=== PATIENT | female | born 1955 | race Caucasian/White ===

== ENCOUNTER 2018-09-29 18:59 | Emergency (ER) | payer OTHER ==
[2018-09-29 19:10] VITALS: BP 144/87; PULSE 94; RESP 18; TEMP 98.2
[2018-09-29] MEDS ORDERED: FAMOTIDINE 20 MG TAB PO STA (19:26)
[2018-09-29] MEDS ORDERED: LIDOCAINE 5% PATCH TOPICAL STA (19:26)
[2018-09-29] MEDS ORDERED: NAPROXEN 250 MG TAB PO STA (19:26)
--- NOTE | 2018-09-29 19:28 | ED ---
Skin/Abscess/FB HPI - General Chief complaint: Skin/Abscess/Foreign Body Stated complaint: Hx Shingles, Abd Pain Time Seen by Provider: 09/29/18 19:13 Source: patient Mode of arrival: ambulatory Limitations: no limitations - History of Present Illness Initial comments: 63-year-old female patient presents to the emergency department today for evaluation of pain, itching, and tenderness over the left lower abdomen. Patient was diagnosed with shingles 2 weeks ago. Patient states that her symptoms aren't improving is making it difficult for her to sleep. Patient states she can feel sharp pain to the area which causes her to wake up. Patient denies any fever or chills. States that she was given valacyclovir but no pain medications. Patient denies any current drainage from the area. Patient denies any recent rash, shortness breath, chest pain, abdominal pain, nausea, vomiting, diarrhea, constipation, back pain, numbness, tingling, dizziness, weakness, hematuria, dysuria, urinary urgency, urinary frequency, headache, visual changes, or any other complaints. - Related Data Home Medications Medication Instructions Recorded Confirmed Levothyroxine Sodium [Synthroid] 88 mcg PO DAILY 04/10/14 04/10/14 Methocarbamol [Robaxin] 1,000 mg PO QID 04/10/14 04/10/14 Venlafaxine HCl [Effexor] 75 mg PO BID 04/10/14 04/10/14 lamoTRIgine [LaMICtal] 100 mg PO DAILY 04/10/14 04/10/14 Previous Rx's Medication Instructions Recorded Famotidine [Pepcid] 20 mg PO DAILY #30 tablet 09/29/18 Lidocaine 5% Patch [Lidoderm] 1 patch TOPICAL DAILY #5 patch 09/29/18 Naproxen 500 mg PO BID #30 tablet 09/29/18 Allergies Allergy/AdvReac Type Severity Reaction Status Date / Time No Known Allergies Allergy Verified 09/29/18 19:09 Review of Systems ROS Statement: Those systems with pertinent positive or pertinent negative responses have been documented in the HPI. ROS Other: All systems not noted in ROS Statement are negative. Past Medical History Past Medical History: Thyroid Disorder History of Any Multi-Drug Resistant Organisms: None Reported Past Surgical History: Hysterectomy, Joint Replacement Additional Past Surgical History / Comment(s): left knee Past Psychological History: Depression Smoking Status: Current every day smoker Past Alcohol Use History: None Reported Past Drug Use History: None Reported General Exam Limitations: no limitations General appearance: alert, in no apparent distress, other (Physical well- developed, well-nourished adult female patient in no acute distress. Vital signs upon presentation are temperature 98.2F, pulse 94, respirations 18, blood pressure 144/87, pulse ox 100% on room air.) Respiratory exam: Present: normal lung sounds bilaterally. Absent: respiratory distress, wheezes, rales, rhonchi, stridor Cardiovascular Exam: Present: regular rate, normal rhythm, normal heart sounds. Absent: systolic murmur, diastolic murmur, rubs, gallop, clicks GI/Abdominal exam: Present: soft, normal bowel sounds, other (There are crusting scabbed lesions noted over the left lower quadrant abdomen radiating around to the left low back. No surrounding erythema or evidence of cellulitis. No drainage.). Absent: distended, tenderness, guarding, rebound, rigid Neurological exam: Present: alert, oriented X3, CN II-XII intact Psychiatric exam: Present: normal affect, normal mood Skin exam: Present: warm, dry, intact, normal color. Absent: rash Course Vital Signs 09/29/18 19:06 Temperature 98.2 F Pulse Rate 94 Respiratory 18 Rate Blood Pressure 144/87 O2 Sat by Pulse 100 Oximetry Medical Decision Making - Medical Decision Making 63-year-old female patient presented to the emergency department today for evaluation of itching, pain, and tenderness over the left lower abdomen and low back. Patient was diagnosed with shingles 2 weeks ago. She was given valacyclovir but no pain medications. Physical examination did reveal a crusting scabbed lesions to the left lower abdomen and the left low back. There is no surrounding erythema. No concerned for cellulitis or infection. Patient will be discharged with Pepcid for itching, Lidoderm patch for pain relief as well as naproxen for pain relief. She is instructed to follow-up with her primary care physician for recheck in 1-2 days. Return parameters discussed in detail. She verbalizes understanding and agrees with this plan. Disposition Clinical Impression: Shingles Disposition: HOME SELF-CARE Condition: Good Instructions (If sedation given, give patient instructions): Shingles (ED) Additional Instructions: Take medications as directed. Complete prescriptions given to by previous physician. Follow-up with your primary care physician for recheck, one has been recommended 2. Return to the emergency department immediately for any new, worsening, or concerning symptoms. Prescriptions: Lidocaine 5% Patch [Lidoderm] 1 patch TOPICAL DAILY #5 patch Naproxen 500 mg PO BID #30 tablet Famotidine [Pepcid] 20 mg PO DAILY #30 tablet Is patient prescribed a controlled substance at d/c from ED?: No Referrals: None,Stated [Primary Care Provider] - 1-2 days Time of Disposition: 19:28
[2018-09-29] MEDS ORDERED: ACET/COD 300 MG/30 MG STARTER PACK 6 TAB BTL PO STA (19:31)
== END 2018-09-29 19:43 | disposition home or self-care (01) ==
LOC: EC 18:59
DX: B02.9 Zoster without complications (principal); E07.9 Disorder of thyroid, unspecified; F32.9 Major depressive disorder, single episode, unspecified; F17.200 Nicotine dependence, unspecified, uncomplicated; Z90.710 Acquired absence of both cervix and uterus; Z96.652 Presence of left artificial knee joint; Z79.890 Hormone replacement therapy; Z79.899 Other long term (current) drug therapy
CPT/HCPCS: 99283

== ENCOUNTER → 2019-04-29 | Outpatient (CLI) | payer OTHER ==
[2019-04-29 12:06] VITALS: BP 129/86; PULSE 82; RESP 16
--- NOTE | 2019-04-29 12:57 | P.CONS ---
History of Present Illness - Reason for Consult Consult date: 04/29/19 - Chief Complaint Widespread body pain - History of Present Illness This is a 64-year-old female who was referred to us for lower back and right leg pain however the patient complains of pain all over her body. The patient had a brain tumor removal 2 years ago. She also complains of abdominal wall hernia. She feels pain in her lower back with radiation to the right lower extremity to the mid calf area with numbness and tingling in the feet only. She denies any bowel or bladder dysfunction or any weight loss recently. The pain occasionally wakes her up at night. Activity increases her pain level and lying down in bed helps her with the pain. The patient was switched from Neurontin to Lyrica and she will start Lyrica To See If This Would Help Her Pain. She Had an MRI on the Lumbar Spine Which Showed Mild Disc Space Narrowing at the L3-L4 Level and Moderate Broad Disc Bulging at the L5 3 4 Was Facet Degenerative Changes and Bilateral Neural Foraminal Stenosis It Also Showed Similar Changes at the L4 5 Level. This MRI Was Done in 2017. Past Medical History Past Medical History: Hyperlipidemia, Osteoarthritis (OA), Thyroid Disorder Additional Past Medical History / Comment(s): Allergies. Hx brain tumor, has migraines. Hx benign tumors in ab. Back, Rt hip, knee pain. History of Any Multi-Drug Resistant Organisms: None Reported Past Surgical History: Hysterectomy, Joint Replacement Additional Past Surgical History / Comment(s): Total Left knee. Exc brain tumor 2018. Exc 2 abd tumors Past Anesthesia/Blood Transfusion Reactions: No Reported Reaction Smoking Status: Current every day smoker - Past Family History Mother Family Medical History: Cancer Medications and Allergies Home Medications Medication Instructions Recorded Confirmed Type Levothyroxine Sodium [Synthroid] 125 mcg PO DAILY 04/10/14 04/24/19 History Methocarbamol [Robaxin] 750 mg PO TID PRN 04/10/14 04/24/19 History lamoTRIgine [LaMICtal] 25 mg PO DAILY 04/10/14 04/24/19 History Aspirin 325 mg PO TID PRN 04/24/19 04/24/19 History diphenhydrAMINE [Benadryl] 50 mg PO BID PRN 04/24/19 04/24/19 History Allergies Allergy/AdvReac Type Severity Reaction Status Date / Time No Known Allergies Allergy Verified 04/24/19 11:06 Physical Exam Vitals: Vital Signs Pulse Resp BP 04/29/19 12:03 82 16 129/86 - Constitutional General appearance: average body habitus - EENT Eyes: PERRLA - Respiratory Respiratory: bilateral: CTA - Cardiovascular Rhythm: regular - Neurologic Neuro exam of the lower extremities showed normal ankle flexion and extension strength, decreased knee flexion to 4 out of 5 bilaterally and normal knee extension to 4 out of 5 bilaterally. Normal knee reflex bilaterally and decreased but symmetrical ankle reflexes bilaterally. Straight leg raising test negative bilaterally. Positive tenderness in the lumbar paravertebral musculature and around the sacroiliac joint on the right side. Dexter's test negative on the right side. Internal and external rotation of the hip joint did not elicit any pain on the right side. Neurologic: CNII-XII intact - Psychiatric Psychiatric: A&O x's 3, appropriate affect, intact judgment & insight Assessment and Plan Plan: This is a 62-year-old female with lumbar spondylosis without myelopathy and lumbar neuroforaminal stenosis. The patient may benefit from interventional pain procedures however she would like to try conservative management first. She will try physical therapy and Lyrica. She also wanted to take care of her abdominal hernia by consulting a general surgeon and also to follow-up with her neurosurgeon about the brain tumor. The patient will give our clinic a call if her pain continues to be a problem in the lower back and right leg area and then we will schedule her to have lumbar epidural steroid injection under fluoroscopic guidance at the L4 5 level in the right paramedian approach. The patient denies any history of diabetes and she also denies taking any anticoagulants. I thank you for the referral
== END | disposition home or self-care (01) ==
LOC: PNWHC3 11:32
PROVIDERS: ATTEND Anesthesiology
DX: M48.061 Spinal stenosis, lumbar region without neurogenic claudication (principal); M99.73 Connective tissue and disc stenosis of intervertebral foramina of lumbar region; M51.26 Other intervertebral disc displacement, lumbar region; M47.816 Spondylosis without myelopathy or radiculopathy, lumbar region; F17.200 Nicotine dependence, unspecified, uncomplicated; K43.9 Ventral hernia without obstruction or gangrene; Z79.899 Other long term (current) drug therapy
CPT/HCPCS: 99211

== ENCOUNTER 2020-06-17 04:48 | Observation (INO) | payer OTHER ==
[2020-06-17] MEDS ORDERED: MORPHINE SULFATE 4 MG/ML SYRINGE IVP STA (06:25)
[2020-06-17] MEDS ORDERED: ONDANSETRON 4 MG/2 ML VIAL IVP STA (06:25)
[2020-06-17 06:37] LABS: Basophils % (A) 0 %; Eosinophils # (A) 0.1 k/uL (0-0.7); Eosinophils % (A) 1 %; HCT 35.5 % (34.0-46.0); Lymphocytes # (A) 0.6 k/uL (1.0-4.8); Lymphocytes % (A) 7 %; MCHC 33.7 g/dL (31.0-37.0); MCV 91.9 fL (80.0-100.0); Mean Platelet Volume 6.6; Monocytes # (A) 0.4 k/uL (0-1.0); Monocytes % (A) 5 %; Neutrophils # (A) 6.6 k/uL (1.3-7.7); Neutrophils % (A) 86 %; Platelet Count 366 k/uL (150-450); RBC 3.86 m/uL (3.80-5.40); RDW 13.5 % (11.5-15.5); WBC 7.7 k/uL (3.8-10.6)
--- NOTE | 2020-06-17 06:42 | ED ---
General Adult HPI - General Source: patient, EMS, RN notes reviewed Mode of arrival: EMS Limitations: no limitations <Marko Carrizales - Last Filed: 06/17/20 08:10> <Evon Mayfield - Last Filed: 06/21/20 16:34> - General Chief complaint: Skin/Abscess/Foreign Body Stated complaint: Chin Infection Time Seen by Provider: 06/17/20 06:15 - History of Present Illness Initial comments: This a 65-year-old female presents emergency Department chief complaint of chin mass, infection. Patient states started a few months ago. She loses started from dental infection after she had old. Patient states that she is seeing pe ople in the past but is unsure what is going on. States that she's had increasing pain, swelling, redness. No definite fever. Patient states is a large hole in the center. Patient states it's very painful hurts to move her jaw. Patient has no dentition. (Marko Carrizales) - Related Data Home Medications Medication Instructions Recorded Confirmed Albuterol Nebulized [Ventolin 2.5 mg INHALATION RT-Q4H PRN 06/17/20 06/17/20 Nebulized] Albuterol Sulfate [Proventil Hfa] 1 puff INHALATION RT-Q6H PRN 06/17/20 06/17/20 DULoxetine HCL [Cymbalta] 30 mg PO DAILY 06/17/20 06/17/20 Ibuprofen [Motrin] 400 mg PO Q8H PRN 06/17/20 06/17/20 Levothyroxine Sodium [Synthroid] 125 mcg PO DAILY 06/17/20 06/17/20 Nicotine 14Mg/24Hr Patch [Habitrol] 1 patch TRANSDERM DAILY 06/17/20 06/17/20 busPIRone HCl [Buspar] 20 mg PO BID 06/17/20 06/17/20 lamoTRIgine [LaMICtal] 25 mg PO BID 06/17/20 06/17/20 Previous Rx's Medication Instructions Recorded Amoxic-Pot Clav 875-125Mg 1 each PO Q12HR #4 tab 06/21/20 [Augmentin 875-125] Docusate [Colace] 100 mg PO BID cap 06/21/20 Famotidine [Pepcid] 20 mg PO BID #60 tablet 06/21/20 Allergies Allergy/AdvReac Type Severity Reaction Status Date / Time No Known Allergies Allergy Verified 06/17/20 07:38 Review of Systems ROS Other: All systems not noted in ROS Statement are negative. <Marko Carrizales - Last Filed: 06/17/20 08:10> ROS Other: All systems not noted in ROS Statement are negative. <Evon Mayfield Cara - Last Filed: 06/21/20 16:34> ROS Statement: Those systems with pertinent positive or pertinent negative responses have been documented in the HPI. Past Medical History Past Medical History: Hyperlipidemia, Osteoarthritis (OA), Thyroid Disorder Additional Past Medical History / Comment(s): Allergies. Hx brain tumor, has migraines. Hx benign tumors in ab. Back, Rt hip, knee pain. History of Any Multi-Drug Resistant Organisms: None Reported Past Surgical History: Hysterectomy, Joint Replacement Additional Past Surgical History / Comment(s): Total Left knee. Exc brain tumor 2018. Exc 2 abd tumors Past Anesthesia/Blood Transfusion Reactions: No Reported Reaction Past Psychological History: Anxiety, Depression Smoking Status: Former smoker Past Alcohol Use History: None Reported Past Drug Use History: None Reported - Past Family History Mother Family Medical History: Cancer <Marko Carrizales - Last Filed: 06/17/20 08:10> General Exam Limitations: no limitations General appearance: alert, in no apparent distress Head exam: Present: atraumatic, normocephalic, normal inspection Eye exam: Present: normal appearance, PERRL, EOMI. Absent: scleral icterus, conjunctival injection, periorbital swelling ENT exam: Present: mucous membranes moist, TM's normal bilaterally, other (Very large chin mass with central eschar, erythema and tenderness with palpation). Absent: normal exam, normal oropharynx (No dentition) Neck exam: Present: normal inspection, full ROM. Absent: tenderness, meningismus, lymphadenopathy Respiratory exam: Present: normal lung sounds bilaterally. Absent: respiratory distress, wheezes, rales, rhonchi, stridor Cardiovascular Exam: Present: regular rate, normal rhythm, normal heart sounds. Absent: systolic murmur, diastolic murmur, rubs, gallop, clicks GI/Abdominal exam: Present: soft, normal bowel sounds. Absent: distended, tenderness, guarding, rebound, rigid Neurological exam: Present: alert, oriented X3, CN II-XII intact Skin exam: Present: warm, dry, intact, normal color. Absent: rash <Marko Carrizales - Last Filed: 06/17/20 08:10> Course Vital Signs 06/17/20 06/17/20 06/17/20 04:50 06:25 07:11 Temperature 97.8 F Pulse Rate 103 H 96 Respiratory 18 18 Rate Blood Pressure 134/96 130/76 O2 Sat by Pulse 96 96 Oximetry 06/17/20 09:05 Temperature Pulse Rate 101 H Respiratory 18 Rate Blood Pressure 123/72 O2 Sat by Pulse 94 L Oximetry Medical Decision Making - Lab Data Result diagrams: 06/17/20 05:59 06/17/20 05:59 <Marko Carrizales - Last Filed: 06/17/20 08:10> - Lab Data Result diagrams: 06/21/20 07:25 06/21/20 07:25 <Evon Mayfield - Last Filed: 06/21/20 16:34> - Medical Decision Making Patient will be admitted for facial mass possible abscess. Case discussed with Dr. Chong. Patient will have consultation to oncology and ENT. (Marko Carrizales) I was available for consultation in the emergency department. The history and physical exam were done by the midlevel provider. I was consulted for this patients care. I reviewed the case with the midlevel provider and based on their presentation of the patient, I agree with the assessment, medical decision making and plan of care as documented. Chart was dictated using [employer] dictation software. Attempts were made to correct any dictation errors however some typographical errors may persist. Patient was seen during a national state of emergency due to the Covid-19 pandemic. (Evon Mayfield) - Lab Data Lab Results 06/17/20 06/17/20 06/17/20 Range/Units 05:59 05:59 05:59 WBC 7.7 (3.8-10.6) k/uL RBC 3.86 (3.80-5.40) m/uL Hgb 12.0 (11.4-16.0) gm/dL Hct 35.5 (34.0-46.0) % MCV 91.9 (80.0-100.0) fL MCH 31.0 (25.0-35.0) pg MCHC 33.7 (31.0-37.0) g/dL RDW 13.5 (11.5-15.5) % Plt Count 366 (150-450) k/uL MPV 6.6 Neutrophils % 86 % Lymphocytes % 7 % Monocytes % 5 % Eosinophils % 1 % Basophils % 0 % Neutrophils # 6.6 (1.3-7.7) k/uL Lymphocytes # 0.6 L (1.0-4.8) k/uL Monocytes # 0.4 (0-1.0) k/uL Eosinophils # 0.1 (0-0.7) k/uL Basophils # 0.0 (0-0.2) k/uL Sodium 138 (137-145) mmol/L Potassium 3.4 L (3.5-5.1) mmol/L Chloride 104 (98-107) mmol/L Carbon Dioxide 21 L (22-30) mmol/L Anion Gap 13 mmol/L BUN 13 (7-17) mg/dL Creatinine 0.89 (0.52-1.04) mg/dL Est GFR (CKD-EPI)AfAm 80 (>60 ml/min/1.73 sqM) Est GFR (CKD-EPI)NonAf 69 (>60 ml/min/1.73 sqM) Glucose 133 H (74-99) mg/dL Plasma Lactic Acid Nick 0.9 (0.7-2.0) mmol/L Calcium 8.8 (8.4-10.2) mg/dL Total Bilirubin 0.3 (0.2-1.3) mg/dL AST 31 (14-36) U/L ALT 18 (4-34) U/L Alkaline Phosphatase 82 (38-126) U/L Total Protein 7.3 (6.3-8.2) g/dL Albumin 4.2 (3.5-5.0) g/dL Disposition <Marko Carrizales - Last Filed: 06/17/20 08:10> <Evon Mayfield - Last Filed: 06/21/20 16:34> Clinical Impression: Facial mass, Abscess of chin Disposition: ADMITTED IP TO THIS [facility] Condition: Serious
[2020-06-17 06:49] LABS: Albumin 4.2 g/dL (3.5-5.0); Calcium 8.8 mg/dL (8.4-10.2); Potassium 3.4 mmol/L (3.5-5.1); Total Bilirubin 0.3 mg/dL (0.2-1.3); Total Protein 7.3 g/dL (6.3-8.2)
--- NOTE | 2020-06-17 07:36 | CT ---
EXAMINATION TYPE: CT soft tissue neck w con DATE OF EXAM: 06/17/2020 COMPARISON: None HISTORY: chin abscess CT DLP: 223.9 mGycm CONTRAST: CT scan of the neck is performed with IV Contrast, patient injected with 100 mL of Isovue 300. Contrast enhanced CT of the neck was performed from the skull base through the lung apices. AIRWAY: The supraglottic, glottic, and subglottic portions of the airway appear patent and free of mass. SALIVARY GLANDS: The submandibular and parotid glands are free of mass or inflammatory process. THYROID GLAND: No nodules or masses seen. LYMPH NODES: No adenopathy seen greater than 1cm. LUNG APICES: No nodule or mass is seen. OTHER: There is mental/submental soft tissue mass noted which measures 5.8 x 3.7 x 6.3 cm submental c omponent and mentalis component measuring 5.3 x 2.0 x 2.3 cm.. Hounsfield unit measurement is approxi mately 55. Within the mentalis component there is a small focus of decreased attenuation to the right of midline seen on image 43 of 84 measuring 11 mm. No no additional areas of decreased attenuation s een. No additional masses appreciated at this time. Vascular structures are patent. No significant d egenerative change of the cervical spine. IMPRESSION: Nonspecific soft tissue mass within the mental/submental region. Malignancy is not excluded. Small fo werner abscess within the mentalis component is difficult to exclude. Clinical correlation advised.
[2020-06-17] MEDS ORDERED: NALOXONE 0.4 MG/ML 1 ML VIAL IV PRN (08:12)
[2020-06-17] MEDS ORDERED: MORPHINE SULFATE 4 MG/ML SYRINGE IV PRN (08:12)
[2020-06-17] MEDS ORDERED: ONDANSETRON 4 MG/2 ML VIAL IVP PRN (08:12)
[2020-06-17] MEDS ORDERED: AMPICILLIN-SULBACTAM 3 GM in SODIUM CHLORIDE 0.9% 100 ML IVPB STA (08:14)
[2020-06-17] MEDS ORDERED: IOPAMIDOL CONTRAST (ORAL USE) VIAL PO PRN (13:46)
[2020-06-17] MEDS ORDERED: busPIRone HCl 10 MG TAB PO SCH (15:28)
[2020-06-17] MEDS: ALBUTEROL HFA INHALER INHALATION PRN (15:48)
[2020-06-17] MEDS: NICOTINE 14MG/24HR PATCH TRANSDERM SCH (15:53)
[2020-06-17] MEDS: AMPICILLIN-SULBACTAM 3 GM in SODIUM CHLORIDE 0.9% 100 ML IVPB SCH (15:54)
--- NOTE | 2020-06-17 17:41 | P.CONS ---
History of Present Illness - Reason for Consult Consult date: 06/17/20 Submandibular Mass Requesting physician: Marko Carrizales - Chief Complaint Mass and discomfort - History of Present Illness Rony is a 65 year old female who noticed a mass on her chin approximately 3 months ago and this has continued to grow since. She also recently struggled with shingles too and has some post herpetic neuralgia. Rash is scabbed over. She is very hard of hearing. Review of Systems All systems: negative Constitutional: Reports as per HPI Past Medical History Past Medical History: Hyperlipidemia, Osteoarthritis (OA), Thyroid Disorder Additional Past Medical History / Comment(s): Allergies. Hx brain tumor, has migraines. Hx benign tumors in ab. Back, Rt hip, knee pain. History of Any Multi-Drug Resistant Organisms: None Reported Past Surgical History: Hysterectomy, Joint Replacement Additional Past Surgical History / Comment(s): Total Left knee. Exc brain tumor 2018. Exc 2 abd tumors Past Anesthesia/Blood Transfusion Reactions: No Reported Reaction Past Psychological History: Anxiety, Depression Smoking Status: Former smoker Past Alcohol Use History: None Reported Additional Past Alcohol Use History / Comment(s): Smoking on/off since 1989, down to 5 cigarettes daily now Past Drug Use History: None Reported - Past Family History Mother Family Medical History: Cancer Medications and Allergies Home Medications Medication Instructions Recorded Confirmed Type diphenhydrAMINE [Benadryl] 50 mg PO BID PRN 04/24/19 06/17/20 History Albuterol Nebulized [Ventolin 2.5 mg INHALATION RT-Q4H PRN 06/17/20 06/17/20 History Nebulized] Albuterol Sulfate [Proventil Hfa] 1 puff INHALATION RT-Q6H PRN 06/17/20 06/17/20 History DULoxetine HCL [Cymbalta] 30 mg PO DAILY 06/17/20 06/17/20 History Ibuprofen [Motrin] 400 mg PO Q8H PRN 06/17/20 06/17/20 History Levothyroxine Sodium [Synthroid] 125 mcg PO DAILY 06/17/20 06/17/20 History Nicotine 14Mg/24Hr Patch [Habitrol 1 patch TRANSDERM DAILY 06/17/20 06/17/20 History 14Mg/24Hr Patch] busPIRone HCl [Buspar] 20 mg PO BID 06/17/20 06/17/20 History lamoTRIgine [LaMICtal] 25 mg PO BID 06/17/20 06/17/20 History Allergies Allergy/AdvReac Type Severity Reaction Status Date / Time No Known Allergies Allergy Verified 06/17/20 07:38 Physical Exam Vitals: Vital Signs Temp Pulse Pulse Resp BP BP Pulse Ox 06/17/20 13:55 98.2 F 108 H 20 93/61 95 06/17/20 12:15 98.3 F 103 H 16 106/63 95 06/17/20 12:00 98.4 F 96 18 110/65 96 06/17/20 09:05 101 H 18 123/72 94 L 06/17/20 07:11 96 18 130/76 96 06/17/20 06:25 97.8 F 06/17/20 04:50 103 H 18 134/96 96 Intake and Output 06/17/20 06/17/20 06/17/20 06:59 14:59 22:59 Other: Weight 58.967 kg 58.967 kg Large dimpled, orange de peau appearing mass overtaking entire chin and submandigular region, with large necrotic area within middle. - Constitutional General appearance: cooperative - EENT ENT: hard of hearing - Neck Neck: normal ROM - Cardiovascular Rhythm: regular - Gastrointestinal General gastrointestinal: soft - Integumentary Scabbed area of recent shingles - Neurologic Neurologic: CNII-XII intact - Musculoskeletal Musculoskeletal: generalized weakness - Psychiatric Psychiatric: A&O x's 3, appropriate affect, intact judgment & insight Results CBC & Chem 7: 06/17/20 05:59 06/17/20 05:59 Labs: Abnormal Lab Results - Last 24 Hours (Table) 06/17/20 06/17/20 Range/Units 05:59 05:59 Lymphocytes # 0.6 L (1.0-4.8) k/uL Potassium 3.4 L (3.5-5.1) mmol/L Carbon Dioxide 21 L (22-30) mmol/L Glucose 133 H (74-99) mg/dL Comments: CT neck Assessment and Plan Plan: Assessment and Recommenations: Large Submandibular mass: - ENT and Surgery have evaluated - IR to biopsy - COncerning for underlying malignancy necrosis centralzed - CT Chest/Abdomen and Pelvis for initial staging Await results of pathology
[2020-06-17] MEDS: lamoTRIgine 25 MG TAB PO SCH (20:16)
--- NOTE | 2020-06-17 22:30 | P.HPIM ---
History of Present Illness H&P Date: 06/17/20 Chief Complaint: chin mass Rony Nicole is a 65 yo F with PMH of COPD who presented to the ED with an enlarging mass under her chin. She states that over the past 3 months it has worsened, she has had multiple teeth pulled in the past and was previously told by a dentist there was a retained fragment in her jaw. She had been treated with antibiotics initially as well as had a CT scan which was unremarkable. Despite this her mass has continued to grow. On presentation vitals stable, CT with nonspecific soft mass, WBC 7k. Review of Systems All systems: negative Constitutional: Denies chills, Denies fever Eyes: denies blurred vision, denies pain Ears, nose, mouth and throat: Reports ant. neck pain, Reports dental pain, Denies headache, Denies sore throat Cardiovascular: Denies chest pain, Denies shortness of breath Respiratory: Denies cough Gastrointestinal: Denies abdominal pain, Denies diarrhea, Denies nausea, Denies vomiting Genitourinary: Denies dysuria, Denies hematuria Musculoskeletal: Denies myalgias Integumentary: Denies pruritus, Denies rash Neurological: Denies numbness, Denies weakness Psychiatric: Denies anxiety, Denies depression Endocrine: Denies fatigue, Denies weight change Past Medical History Past Medical History: Hyperlipidemia, Osteoarthritis (OA), Thyroid Disorder Additional Past Medical History / Comment(s): Allergies. Hx brain tumor, has migraines. Hx benign tumors in ab. Back, Rt hip, knee pain. History of Any Multi-Drug Resistant Organisms: None Reported Past Surgical History: Hysterectomy, Joint Replacement Additional Past Surgical History / Comment(s): Total Left knee. Exc brain tumor 2018. Exc 2 abd tumors Past Anesthesia/Blood Transfusion Reactions: No Reported Reaction Past Psychological History: Anxiety, Depression Smoking Status: Former smoker Past Alcohol Use History: None Reported Additional Past Alcohol Use History / Comment(s): Smoking on/off since 1989, down to 5 cigarettes daily now Past Drug Use History: None Reported - Past Family History Mother Family Medical History: Cancer Medications and Allergies Home Medications Medication Instructions Recorded Confirmed Type diphenhydrAMINE [Benadryl] 50 mg PO BID PRN 04/24/19 06/17/20 History Albuterol Nebulized [Ventolin 2.5 mg INHALATION RT-Q4H PRN 06/17/20 06/17/20 History Nebulized] Albuterol Sulfate [Proventil Hfa] 1 puff INHALATION RT-Q6H PRN 06/17/20 06/17/20 History DULoxetine HCL [Cymbalta] 30 mg PO DAILY 06/17/20 06/17/20 History Ibuprofen [Motrin] 400 mg PO Q8H PRN 06/17/20 06/17/20 History Levothyroxine Sodium [Synthroid] 125 mcg PO DAILY 06/17/20 06/17/20 History Nicotine 14Mg/24Hr Patch [Habitrol 1 patch TRANSDERM DAILY 06/17/20 06/17/20 History 14Mg/24Hr Patch] busPIRone HCl [Buspar] 20 mg PO BID 06/17/20 06/17/20 History lamoTRIgine [LaMICtal] 25 mg PO BID 06/17/20 06/17/20 History Allergies Allergy/AdvReac Type Severity Reaction Status Date / Time No Known Allergies Allergy Verified 06/17/20 07:38 Physical Exam Vitals: Vital Signs Temp Pulse Pulse Resp BP BP Pulse Ox 06/17/20 20:31 18 06/17/20 19:35 98.8 F 98 18 105/68 94 L 06/17/20 13:55 98.2 F 108 H 20 93/61 95 06/17/20 12:15 98.3 F 103 H 16 106/63 95 06/17/20 12:00 98.4 F 96 18 110/65 96 06/17/20 09:05 101 H 18 123/72 94 L 06/17/20 07:11 96 18 130/76 96 06/17/20 06:25 97.8 F 06/17/20 04:50 103 H 18 134/96 96 Intake and Output 06/17/20 06/17/20 06/17/20 06:59 14:59 22:59 Other: # Voids 1 Weight 58.967 kg 58.967 kg General: well nourished, well developed, NAD. Vitals reviewed Eyes: PERRL, EOMI, conjunctiva normal HENT: normocephalic, mucus membranes moist Neck: anterior submandibular fullness, erythema and tenderness. central black eschar Lungs: normal respiratory effort, no wheezes or rales CV: Regular rate and rhythm, no murmur. Peripheral pulses 2+ Abdomen: soft, nondistended, no organomegaly Lymph: no cervical or axillary LAD Skin: warm and dry. Neuro: A&Ox3, normal mood and affect Results CBC & Chem 7: 06/17/20 05:59 06/17/20 19:26 Labs: Abnormal Lab Results - Last 24 Hours (Table) 06/17/20 06/17/20 06/17/20 Range/Units 05:59 05:59 19:26 Lymphocytes # 0.6 L (1.0-4.8) k/uL Potassium 3.4 L (3.5-5.1) mmol/L Carbon Dioxide 21 L (22-30) mmol/L BUN 19 H (7-17) mg/dL Glucose 133 H (74-99) mg/dL Thrombosis Risk Factor Assmnt - Choose All That Apply Any of the Below Risk Factors Present?: Yes Each Factor Represents 1 point: Age 41-60 years, Obesity (BMI >25) Other Risk Factors: Yes Each Risk Factor Represents 2 Points: Age 61-74 years, Malignancy Thrombosis Risk Factor Assessment Total Risk Factor Score: 6 Thrombosis Risk Factor Assessment Level: High Risk Assessment and Plan (1) COPD (chronic obstructive pulmonary disease) Current Visit: Yes Status: Acute Code(s): J44.9 - CHRONIC OBSTRUCTIVE PULMONARY DISEASE, UNSPECIFIED SNOMED Code(s): 32976884 (2) Abscess of chin Current Visit: Yes Status: Acute Code(s): L02.01 - CUTANEOUS ABSCESS OF FACE SNOMED Code(s): 39303252 (3) Facial mass Current Visit: Yes Status: Acute Code(s): R22.0 - LOCALIZED SWELLING, MASS AND LUMP, HEAD SNOMED Code(s): 416480774 Plan: 1. Submandibular mass. Start empiric antiboitics. Consult to Oncology. IR to biopsy mass 2. COPD. Continue albuterol and NRT 3. Hypothyroidism. Continue synthroid
[2020-06-18] MEDS ORDERED: SODIUM CHLORIDE 0.9% 100 ML BAG ONE
[2020-06-18] MEDS ORDERED: busPIRone HCl 10 MG TAB ONE
[2020-06-18] MEDS ORDERED: AMPICILLIN-SULBACTAM 3 GM VIAL ONE
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
[2020-06-18] MEDS: LEVOTHYROXINE 125 MCG TAB PO SCH (06:20)
[2020-06-18] MEDS: ALBUTEROL HFA INHALER INHALATION PRN ×2 (07:14→11:20)
[2020-06-18] MEDS: AMPICILLIN-SULBACTAM 3 GM in SODIUM CHLORIDE 0.9% 100 ML IVPB SCH ×3 (07:47→16:05)
[2020-06-18] MEDS: busPIRone HCl 10 MG TAB PO SCH ×3 (07:48→20:33)
[2020-06-18] MEDS: lamoTRIgine 25 MG TAB PO SCH ×2 (08:58→20:33)
[2020-06-18] MEDS: DULoxetine HCL 30 MG CAPSULE.DR PO SCH (08:59)
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
[2020-06-18] MEDS: HYDROcodone/APAP 5-325MG 1 EACH TAB PO PRN ×2 (12:00→19:58)
--- NOTE | 2020-06-18 12:54 | US ---
EXAMINATION TYPE: US biopsy soft tissue/muscle, US FNA first lesion DATE OF EXAM: 06/18/2020 HISTORY: Submental mass. FINDINGS: Maximal barrier technique was utilized. Hand hygiene achieved with soap and water and alco hol-based hand rub. The skin overlying a suitable path to the patient's mass in the submental locatio n was localized with ultrasound and the overlying skin prepped and draped. Ultrasound was utilized w ith sterile technique. Lidocaine was used for local anesthesia. A skin shasha was made with a scalpel . An 18-gauge needle was advanced under direct ultrasound guidance and core specimen obtained of the mass following aspiration with a 23-gauge needle which was deposited in culture media. 2 passes were made. Specimen submitted in formalin to Pathology. Following the procedure, hemostasis achieved an d the patient is discharged in stable condition without complication. IMPRESSION:STATUS POST ULTRASOUND GUIDED CORE AND FINE-NEEDLE ASPIRATION BIOPSY OF submental MASS, PA THOLOGY and microbiology IS PENDING. THIS PROCEDURE IS PERFORMED BY THE UNDERSIGNED.
[2020-06-18 13:43] LABS: ALT 15 U/L (4-34); AST 25 U/L (14-36); African American GFR (CKD) >90 (>60 ml/min/1.73 sqM); Albumin 3.7 g/dL (3.5-5.0); Alkaline Phosphatase 69 U/L (38-126); Anion Gap 6 mmol/L; Basophils % (A) 1 %; Blood Urea Nitrogen 17 mg/dL (7-17); Calcium 8.4 mg/dL (8.4-10.2); Carbon Dioxide 30 mmol/L (22-30); Chloride 104 mmol/L (98-107); Eosinophils # (A) 0.2 k/uL (0-0.7); Eosinophils % (A) 3 %; Glucose 104 mg/dL (74-99); HCT 32.3 % (34.0-46.0); HGB 10.5 gm/dL (11.4-16.0); Lymphocytes # (A) 0.5 k/uL (1.0-4.8); Lymphocytes % (A) 9 %; MCH 30.6 pg (25.0-35.0); MCHC 32.5 g/dL (31.0-37.0); Magnesium 2.1 mg/dL (1.6-2.3); Mean Platelet Volume 6.4; Monocytes # (A) 0.3 k/uL (0-1.0); Monocytes % (A) 5 %; Neutrophils # (A) 4.3 k/uL (1.3-7.7); Neutrophils % (A) 82 %; Non-African American GFR(CKD) >90 (>60 ml/min/1.73 sqM); Platelet Count 273 k/uL (150-450); Potassium 3.4 mmol/L (3.5-5.1); RBC 3.44 m/uL (3.80-5.40); RDW 13.9 % (11.5-15.5); Sodium 140 mmol/L (137-145); Total Bilirubin 0.3 mg/dL (0.2-1.3); Total Protein 6.4 g/dL (6.3-8.2); WBC 5.2 k/uL (3.8-10.6)
[2020-06-18] MEDS ORDERED: Potassium Replacement Protocol 1 EACH MISC MISCELLANE PRN (14:46)
--- NOTE | 2020-06-18 14:52 | P.PN ---
Subjective Progress Note Date: 06/18/20 Rony Nicole is a 65 yo F with PMH of COPD who presented to the ED with an enlarging mass under her chin. She states that over the past 3 months it has worsened, she has had multiple teeth pulled in the past and was previously told by a dentist there was a retained fragment in her jaw. She had been treated with antibiotics initially as well as had a CT scan which was unremarkable. Despite this her mass has continued to grow. On presentation vitals stable, CT with nonspecific soft mass, WBC 7k. 06/18/2020 maintained on IV antibiotics, consenting only to biopsy of chin. Declining further workup with CTs. Denies chin pain. Denies chest pain, palpitations or increasing shortness of breath. Afebrile, normal WBC. Hemoglobin 10.5, platelets 273. Potassium 3.4. Objective - Vital Signs Vital signs: Vital Signs Temp 98.4 F 06/18/20 08:36 Pulse 95 06/18/20 11:15 Resp 16 06/18/20 11:15 BP 103/65 06/18/20 11:15 Pulse Ox 95 06/18/20 11:15 Intake & Output 06/17/20 06/18/20 06/18/20 18:59 06:59 18:59 Weight 58.967 kg Other: # Voids 1 2 - Exam General: well nourished, well developed, NAD. Vitals reviewed Eyes: PERRL, EOMI, conjunctiva normal HENT: normocephalic, mucus membranes moist Neck: anterior submandibular fullness, erythema and tenderness. central black eschar Lungs: normal respiratory effort, no wheezes or rales CV: Regular rate and rhythm, no murmur. Peripheral pulses 2+ Abdomen: soft, nondistended, no organomegaly Lymph: no cervical or axillary LAD Skin: warm and dry. Neuro: A&Ox3, normal mood and affect Microbiology 06/17/20 06:25 Blood Blood Culture - Preliminary No Growth after 24 hours 06/17/20 06:23 Blood Blood Culture - Preliminary No Growth after 24 hours - Labs CBC & Chem 7: 06/18/20 13:17 06/18/20 13:17 Labs: Abnormal Lab Results - Last 24 Hours (Table) 06/17/20 Range/Units 19:26 BUN 19 H (7-17) mg/dL Microbiology - Last 24 Hours (Table) 06/17/20 06:25 Blood Culture - Preliminary Blood No Growth after 24 hours 06/17/20 06:23 Blood Culture - Preliminary Blood No Growth after 24 hours Assessment and Plan Assessment: 1. Submandibular mass 2. COPD 3. Hypothyroidism. Plan: Continue on current medication regime ,monitoring and symptomatic treatment. IV fluid hydration. Continue empiric Unasyn. Refusing CTs, only consenting to biopsy of chin with IR. Maintain nebulized bronchodilators. Potassium replacement ordered .smoking cessation reinforced .Follow closely with multiple consults. Pain management. The impression and plan of care has been dictated as directed. : I performed a history and examination of this patient, discussed the same with the dictator. I agree with the dictator's note ,documented as a scribe. Any additional findings or plans will be noted.
[2020-06-18] MEDS: NICOTINE 14MG/24HR PATCH TRANSDERM SCH (16:05)
[2020-06-18] MEDS: POTASSIUM CHLORIDE ER 20 MEQ TAB.ER PO SCH ×2 (16:05→17:00)
[2020-06-18] MEDS ORDERED: POTASSIUM CHLORIDE ER 20 MEQ TAB.ER PO SCH (20:00)
--- NOTE | 2020-06-18 22:19 | P.PN ---
Subjective Progress Note Date: 06/18/20 Principal diagnosis: large submental mass Patient has refused imaging today per nursing, however Biopsy is scheduled for today appears to be planned. Objective - Vital Signs Vital signs: Vital Signs Temp 98.4 F 06/18/20 08:36 Pulse 95 06/18/20 11:15 Resp 16 06/18/20 11:15 BP 103/65 06/18/20 11:15 Pulse Ox 95 06/18/20 11:15 Intake & Output 06/17/20 06/18/20 06/18/20 18:59 06:59 18:59 Weight 58.967 kg Other: # Voids 1 2 - Exam Large dimpled, orange de peau appearing mass overtaking entire chin and submandigular region, with large necrotic area within middle. - Constitutional General appearance: cooperative - EENT ENT: hard of hearing - Neck Neck: normal ROM - Cardiovascular Rhythm: regular - Gastrointestinal General gastrointestinal: soft - Integumentary Scabbed area of recent shingles - Neurologic Neurologic: CNII-XII intact - Musculoskeletal Musculoskeletal: generalized weakness - Psychiatric Psychiatric: A&O x's 3, appropriate affect, intact judgment & insight - Labs CBC & Chem 7: 06/17/20 05:59 06/17/20 19:26 Labs: Abnormal Lab Results - Last 24 Hours (Table) 06/17/20 Range/Units 19:26 BUN 19 H (7-17) mg/dL Microbiology - Last 24 Hours (Table) 06/17/20 06:25 Blood Culture - Preliminary Blood No Growth after 24 hours 06/17/20 06:23 Blood Culture - Preliminary Blood No Growth after 24 hours Assessment and Plan Plan: Assessment and Recommenations: Large Submandibular mass: - ENT and Surgery have evaluated - IR to biopsy - Concerning for underlying malignancy necrosis centralzed versus large abscess versus acinomycosis - CT Chest/Abdomen and Pelvis for initial staging Await results of pathology
[2020-06-18] MEDS: oxyCODONE-APAP 7.5-325MG 1 EACH TAB PO PRN (22:37)
[2020-06-19] MEDS: AMPICILLIN-SULBACTAM 3 GM in SODIUM CHLORIDE 0.9% 100 ML IVPB SCH ×4 (00:02→23:53)
[2020-06-19] MEDS: LEVOTHYROXINE 125 MCG TAB PO SCH (06:34)
[2020-06-19] MEDS: ALBUTEROL HFA INHALER INHALATION PRN (08:10)
[2020-06-19] MEDS: NICOTINE 14MG/24HR PATCH TRANSDERM SCH (09:14)
[2020-06-19] MEDS: busPIRone HCl 10 MG TAB PO SCH ×2 (09:15→21:09)
[2020-06-19] MEDS: DULoxetine HCL 30 MG CAPSULE.DR PO SCH (09:16)
[2020-06-19] MEDS: lamoTRIgine 25 MG TAB PO SCH ×2 (09:16→21:08)
[2020-06-19 09:56] LABS: Basophils % (A) 0 %; Eosinophils # (A) 0.1 k/uL (0-0.7); Eosinophils % (A) 3 %; HCT 28.6 % (34.0-46.0); HGB 9.8 gm/dL (11.4-16.0); Lymphocytes # (A) 0.6 k/uL (1.0-4.8); Lymphocytes % (A) 17 %; MCH 32.3 pg (25.0-35.0); MCHC 34.4 g/dL (31.0-37.0); MCV 93.8 fL (80.0-100.0); Mean Platelet Volume 6.4; Monocytes # (A) 0.3 k/uL (0-1.0); Monocytes % (A) 7 %; Neutrophils # (A) 2.5 k/uL (1.3-7.7); Neutrophils % (A) 70 %; Platelet Count 223 k/uL (150-450); RBC 3.04 m/uL (3.80-5.40); RDW 13.7 % (11.5-15.5); WBC 3.5 k/uL (3.8-10.6)
[2020-06-19 10:03] LABS: African American GFR (CKD) >90 (>60 ml/min/1.73 sqM); Anion Gap 4 mmol/L; Blood Urea Nitrogen 17 mg/dL (7-17); Calcium 8.2 mg/dL (8.4-10.2); Carbon Dioxide 28 mmol/L (22-30); Chloride 107 mmol/L (98-107); Glucose 110 mg/dL (74-99); Non-African American GFR(CKD) >90 (>60 ml/min/1.73 sqM); Potassium 4.2 mmol/L (3.5-5.1); Sodium 139 mmol/L (137-145)
[2020-06-19] MEDS: oxyCODONE-APAP 7.5-325MG 1 EACH TAB PO PRN ×3 (10:29→22:08)
[2020-06-19] MEDS: IBUPROFEN 600 MG TAB PO PRN (15:08)
[2020-06-19] MEDS: ALBUTEROL NEBULIZED 2.5 MG/3 ML INHALATION SCH ×2 (15:30→20:00)
[2020-06-19] MEDS: SYMBICORT 80-4.5 MCG INHALER INHALATION SCH (19:59)
--- NOTE | 2020-06-19 22:35 | P.PN ---
Subjective Progress Note Date: 06/19/20 Principal diagnosis: Submandibular mass Covering for Dr. Chong over the weekend Ms. Nicole is a 65-year-old female with a past medical history of COPD, hyperlipidemia, thyroid disorder coming in to the ED with a chief complaint of enlarging mass under her chin. This has been going on for 3 months and worsen, patient was treated with antibiotics but the mass continued to grow. She had a CT of the neck done showing nonspecific soft tissue mass in the submental region so the patient eventually had soft tissue biopsy done yesterday. And she is currently on antibiotics in the form of Unasyn. She is comfortably sitting up in the bed appears to be no acute distress. Patient denies having any chest pain or palpitations. No cough or difficulty breathing. No abdominal pain nausea vomiting or diarrhea. No dysuria or hematuria. On reviewing the vitals temperature of 97.4, heart rate 83, respiratory rate 18, blood pressure 130 x 77 saturating at 94% on room air. Labs from this morning white count of 3.5, hemoglobin 9.8, platelets 223. Sodium 139, potassium 4.2, chloride 107, bicarb 28, BUN 17, creatinine 0.55. Active Medications Albuterol Sulfate (Albuterol Nebulized 2.5 Mg/3 Ml) 2.5 mg INHALATION RT-TID S Last Admin: 06/19/20 20:00 Dose: 2.5 mg Documented by: Budesonide/Formoterol Fumarate (Symbicort 80-4.5 Mcg Inhaler) 2 puff INHALATION RT-BID [facility] Last Admin: 06/19/20 19:59 Dose: 2 puff Documented by: Buspirone HCl (Buspirone Hcl 10 Mg Tab) 20 mg PO BID [facility] Last Admin: 06/19/20 21:09 Dose: 20 mg Documented by: Duloxetine HCl (Duloxetine Hcl 30 Mg Capsule.Dr) 30 mg PO DAILY [facility] Last Admin: 06/19/20 09:16 Dose: 30 mg Documented by: Ampicillin Sodium/Sulbactam (Sodium 3 gm/ Sodium Chloride) 100 mls @ 200 mls/hr IVPB Q8HR [facility] Last Admin: 06/19/20 16:18 Dose: 200 mls/hr Documented by: Ibuprofen (Ibuprofen 600 Mg Tab) 600 mg PO Q6HR PRN PRN Reason: Pain Last Admin: 06/19/20 15:08 Dose: 600 mg Documented by: Lamotrigine (Lamotrigine 25 Mg Tab) 25 mg PO BID [facility] Last Admin: 06/19/20 21:08 Dose: 25 mg Documented by: Levothyroxine Sodium (Levothyroxine 125 Mcg Tab) 125 mcg PO DAILY@0630 [facility] Last Admin: 06/19/20 06:34 Dose: 125 mcg Documented by: Miscellaneous Information (Potassium Replacement Protocol 1 Each Misc) 1 each MISCELLANE DAILY PRN; Protocol PRN Reason: Per Protocol Naloxone HCl (Naloxone 0.4 Mg/Ml 1 Ml Vial) 0.2 mg IV Q2M PRN PRN Reason: Opioid Reversal Nicotine (Nicotine 14mg/24hr Patch) 1 patch TRANSDERM DAILY [facility] Last Admin: 06/19/20 09:14 Dose: 1 patch Documented by: Ondansetron HCl (Ondansetron 4 Mg/2 Ml Vial) 4 mg IVP Q8HR PRN PRN Reason: Nausea And Vomiting Oxycodone/Acetaminophen (Oxycodone-Apap 7.5-325mg 1 Each Tab) 1 each PO Q6HR PRN PRN Reason: Pain Last Admin: 06/19/20 22:08 Dose: 1 each Documented by: Objective - Vital Signs Vital signs: Vital Signs Temp 98.2 F 06/19/20 08:00 Pulse 88 06/19/20 08:00 Resp 16 06/19/20 08:00 BP 104/69 06/19/20 08:00 Pulse Ox 93 L 06/19/20 08:00 Intake & Output 06/18/20 06/19/20 06/19/20 18:59 06:59 18:59 Intake Total 0 240 Balance 0 240 Intake: Oral 240 Tube Feeding 0 Other: Voiding Method Toilet # Voids 4 # Bowel Movements 0 - Exam General: well nourished, well developed, NAD. Vitals reviewed Eyes: PERRL, EOMI, conjunctiva normal HENT: normocephalic, mucus membranes moist Neck: anterior submandibular fullness, erythema and tenderness. central black eschar Lungs: normal respiratory effort, Bilateral wheezing CV: Regular rate and rhythm, no murmur. Peripheral pulses 2+ Abdomen: soft, nondistended, no organomegaly Lymph: no cervical or axillary LAD Skin: warm and dry. Neuro: A&Ox3, normal mood and affect - Labs CBC & Chem 7: 06/19/20 09:27 06/19/20 09:27 Labs: Abnormal Lab Results - Last 24 Hours (Table) 06/18/20 06/18/20 06/19/20 Range/Units 13:17 13:17 09:27 WBC 3.5 L (3.8-10.6) k/uL RBC 3.44 L 3.04 L (3.80-5.40) m/uL Hgb 10.5 L 9.8 L (11.4-16.0) gm/dL Hct 32.3 L 28.6 L (34.0-46.0) % Lymphocytes # 0.5 L 0.6 L (1.0-4.8) k/uL Potassium 3.4 L (3.5-5.1) mmol/L Glucose 104 H (74-99) mg/dL Calcium (8.4-10.2) mg/dL 06/19/20 Range/Units 09:27 WBC (3.8-10.6) k/uL RBC (3.80-5.40) m/uL Hgb (11.4-16.0) gm/dL Hct (34.0-46.0) % Lymphocytes # (1.0-4.8) k/uL Potassium (3.5-5.1) mmol/L Glucose 110 H (74-99) mg/dL Calcium 8.2 L (8.4-10.2) mg/dL Microbiology - Last 24 Hours (Table) 06/17/20 06:25 Blood Culture - Preliminary Blood No Growth after 48 hours 06/17/20 06:23 Blood Culture - Preliminary Blood No Growth after 48 hours 06/18/20 11:05 Gram Stain - Preliminary Other - Other Wound Culture - Preliminary 06/18/20 11:05 Anaerobic Culture - Preliminary Other - Other Assessment and Plan Assessment: ASSESSMENT Submandibular mass status post biopsy Hyperlipidemia Hypothyroidism COPD PLAN: Patient is being continued on Unasyn for possible infection of the submandibular mass. She had a biopsy done yesterday and pathology is pending. Patient is wheezing bilaterally on physical exam today so started on Symbicort twice daily and to continue with albuterol breathing treatments as needed. Patient to be continued with the rest of her current medication regimen. Further recommendations to follow depending on the progress of the patient.
[2020-06-20] MEDS: oxyCODONE-APAP 7.5-325MG 1 EACH TAB PO PRN ×2 (04:45→15:14)
[2020-06-20] MEDS: LEVOTHYROXINE 125 MCG TAB PO SCH (06:09)
[2020-06-20] MEDS: ALBUTEROL NEBULIZED 2.5 MG/3 ML INHALATION SCH ×3 (08:21→20:15)
[2020-06-20] MEDS: SYMBICORT 80-4.5 MCG INHALER INHALATION SCH ×2 (08:21→20:14)
[2020-06-20] MEDS: AMPICILLIN-SULBACTAM 3 GM in SODIUM CHLORIDE 0.9% 100 ML IVPB SCH ×2 (09:02→15:17)
[2020-06-20] MEDS: DULoxetine HCL 30 MG CAPSULE.DR PO SCH (09:06)
[2020-06-20] MEDS: lamoTRIgine 25 MG TAB PO SCH ×2 (09:06→21:00)
[2020-06-20] MEDS: IBUPROFEN 600 MG TAB PO PRN (09:06)
[2020-06-20] MEDS: busPIRone HCl 10 MG TAB PO SCH ×2 (09:07→20:59)
[2020-06-20] MEDS: NICOTINE 14MG/24HR PATCH TRANSDERM SCH (09:07)
[2020-06-20] MEDS: predniSONE 20 MG TAB PO SCH (14:10)
--- NOTE | 2020-06-20 15:04 | P.PN ---
Subjective Progress Note Date: 06/20/20 Principal diagnosis: Submandibular mass Covering for Dr. Chong over the weekend Ms. Nicole is a 65-year-old female with a past medical history of COPD, hyperlipidemia, thyroid disorder coming in to the ED with a chief complaint of enlarging mass under her chin. This has been going on for 3 months and worsen, patient was treated with antibiotics but the mass continued to grow. She had a CT of the neck done showing nonspecific soft tissue mass in the submental region so the patient eventually had soft tissue biopsy done yesterday. And she is currently on antibiotics in the form of Unasyn. She is comfortably sitting up in the bed appears to be no acute distress. Patient denies having any chest pain or palpitations. No cough or difficulty breathing. No abdominal pain nausea vomiting or diarrhea. No dysuria or hematuria. On reviewing the vitals temperature of 97.4, heart rate 83, respiratory rate 18, blood pressure 130 x 77 saturating at 94% on room air. Labs from this morning white count of 3.5, hemoglobin 9.8, platelets 223. Sodium 139, potassium 4.2, chloride 107, bicarb 28, BUN 17, creatinine 0.55. On 06/12/2020- patient was seen and examined at the bedside. She states that pain in her submental area is improving. She also thinks that the swelling is improving. Results of the biopsy specimen pending. She denies having any chest pain or palpitations. No cough or difficulty in breathing. No fevers chills or rigors. No abdominal pain nausea vomiting or diarrhea. No dysuria or hematuria. On reviewing the vitals temperature 98.1, heart rate 70, respiratory rate 16, blood pressure 138.5, saturating at 94% on room air. On reviewing the labs white count of 3.5, hemoglobin 9.8, platelets 223. Sodium 139, potassium 4.2, chloride 107, bicarbonate 28, BUN 17, creatinine 0.55. Active Medications Albuterol Sulfate (Albuterol Nebulized 2.5 Mg/3 Ml) 2.5 mg INHALATION RT-TID [facility] Last Admin: 06/20/20 08:21 Dose: 2.5 mg Documented by: Budesonide/Formoterol Fumarate (Symbicort 80-4.5 Mcg Inhaler) 2 puff INHALATION RT-BID [facility] Last Admin: 06/20/20 08:21 Dose: 2 puff Documented by: Buspirone HCl (Buspirone Hcl 10 Mg Tab) 20 mg PO BID [facility] Last Admin: 06/20/20 09:07 Dose: 20 mg Documented by: Duloxetine HCl (Duloxetine Hcl 30 Mg Capsule.Dr) 30 mg PO DAILY [facility] Last Admin: 06/20/20 09:06 Dose: 30 mg Documented by: Ampicillin Sodium/Sulbactam (Sodium 3 gm/ Sodium Chloride) 100 mls @ 200 mls/hr IVPB Q8HR [facility] Last Admin: 06/20/20 09:02 Dose: 200 mls/hr Documented by: Ibuprofen (Ibuprofen 600 Mg Tab) 600 mg PO Q6HR PRN PRN Reason: Pain Last Admin: 06/20/20 09:06 Dose: 600 mg Documented by: Lamotrigine (Lamotrigine 25 Mg Tab) 25 mg PO BID [facility] Last Admin: 06/20/20 09:06 Dose: 25 mg Documented by: Levothyroxine Sodium (Levothyroxine 125 Mcg Tab) 125 mcg PO DAILY@0630 [facility] Last Admin: 06/20/20 06:09 Dose: 125 mcg Documented by: Miscellaneous Information (Potassium Replacement Protocol 1 Each Misc) 1 each MISCELLANE DAILY PRN; Protocol PRN Reason: Per Protocol Naloxone HCl (Naloxone 0.4 Mg/Ml 1 Ml Vial) 0.2 mg IV Q2M PRN PRN Reason: Opioid Reversal Nicotine (Nicotine 14mg/24hr Patch) 1 patch TRANSDERM DAILY [facility] Last Admin: 06/20/20 09:07 Dose: 1 patch Documented by: Ondansetron HCl (Ondansetron 4 Mg/2 Ml Vial) 4 mg IVP Q8HR PRN PRN Reason: Nausea And Vomiting Oxycodone/Acetaminophen (Oxycodone-Apap 7.5-325mg 1 Each Tab) 1 each PO Q6HR PRN PRN Reason: Pain Last Admin: 06/20/20 04:45 Dose: 1 each Documented by: Prednisone (Prednisone 20 Mg Tab) 40 mg PO DAILY [facility] Stop: 06/24/20 09:01 Last Admin: 06/20/20 14:10 Dose: 40 mg Documented by: Objective - Vital Signs Vital signs: Vital Signs Temp 98.1 F 06/20/20 08:35 Pulse 78 06/20/20 08:35 Resp 16 06/20/20 08:35 BP 136/85 06/20/20 08:35 Pulse Ox 95 06/20/20 08:35 Intake & Output 06/19/20 06/20/20 06/20/20 18:59 06:59 18:59 Other: # Voids 2 1 - Exam General: well nourished, well developed, NAD. Vitals reviewed Eyes: PERRL, EOMI, conjunctiva normal HENT: normocephalic, mucus membranes moist Neck: anterior submandibular fullness, erythema and tenderness. central black eschar Lungs: normal respiratory effort, Bilateral wheezing worse than yesterday CV: Regular rate and rhythm, no murmur. Peripheral pulses 2+ Abdomen: soft, nondistended, no organomegaly Lymph: no cervical or axillary LAD Skin: warm and dry. Neuro: A&Ox3, normal mood and affect - Labs CBC & Chem 7: 06/19/20 09:27 06/19/20 09:27 Labs: Microbiology - Last 24 Hours (Table) 06/17/20 06:25 Blood Culture - Preliminary Blood No Growth after 72 hours 06/17/20 06:23 Blood Culture - Preliminary Blood No Growth after 72 hours 06/18/20 11:05 Gram Stain - Preliminary Other - Other Wound Culture - Preliminary Assessment and Plan Assessment: ASSESSMENT Submandibular mass status post biopsy Hyperlipidemia Hypothyroidism Mild exacerbation of COPD PLAN: Patient is being continued on Unasyn for possible infection of the submandibular mass. She had a biopsy done and pathology is pending. Patient is wheezing actively bilaterally, will start her on 40 mg of prednisone for 5 days. Continue with Symbicort and albuterol breathing treatments as needed. Patient to be continued with the rest of her current medication regimen. Further recommendations to follow depending on the progress of the patient.
[2020-06-20 20:47] VITALS: RESP 16
[2020-06-20] MEDS: AMOXIC-POT CLAV 875-125MG 1 EACH TAB PO SCH (21:00)
[2020-06-20] MEDS: DOCUSATE 100 MG CAP PO SCH (21:00)
[2020-06-21] MEDS: oxyCODONE-APAP 7.5-325MG 1 EACH TAB PO PRN (04:17)
[2020-06-21] MEDS: LEVOTHYROXINE 125 MCG TAB PO SCH (05:34)
[2020-06-21] MEDS: ALBUTEROL NEBULIZED 2.5 MG/3 ML INHALATION SCH ×2 (07:51→11:54)
[2020-06-21] MEDS: SYMBICORT 80-4.5 MCG INHALER INHALATION SCH (07:51)
[2020-06-21 08:07] LABS: Basophils % (A) 0 %; Eosinophils % (A) 1 %; HCT 27.7 % (34.0-46.0); Lymphocytes # (A) 0.6 k/uL (1.0-4.8); Lymphocytes % (A) 15 %; MCHC 32.6 g/dL (31.0-37.0); Mean Platelet Volume 6.9; Monocytes # (A) 0.3 k/uL (0-1.0); Monocytes % (A) 7 %; Neutrophils % (A) 75 %; Platelet Count 202 k/uL (150-450); RBC 2.92 m/uL (3.80-5.40); RDW 13.4 % (11.5-15.5)
[2020-06-21 08:26] LABS: African American GFR (CKD) >90 (>60 ml/min/1.73 sqM); Anion Gap 2 mmol/L; Blood Urea Nitrogen 13 mg/dL (7-17); Calcium 8.7 mg/dL (8.4-10.2); Carbon Dioxide 30 mmol/L (22-30); Chloride 104 mmol/L (98-107); Glucose 99 mg/dL (74-99); Non-African American GFR(CKD) >90 (>60 ml/min/1.73 sqM); Potassium 4.5 mmol/L (3.5-5.1); Sodium 136 mmol/L (137-145)
[2020-06-21] MEDS: NICOTINE 14MG/24HR PATCH TRANSDERM SCH (09:20)
[2020-06-21] MEDS: DOCUSATE 100 MG CAP PO SCH (09:20)
[2020-06-21] MEDS: busPIRone HCl 10 MG TAB PO SCH (09:20)
[2020-06-21] MEDS: AMOXIC-POT CLAV 875-125MG 1 EACH TAB PO SCH (09:20)
[2020-06-21] MEDS: DULoxetine HCL 30 MG CAPSULE.DR PO SCH (09:21)
[2020-06-21] MEDS: lamoTRIgine 25 MG TAB PO SCH (09:21)
[2020-06-21] MEDS: predniSONE 20 MG TAB PO SCH (09:22)
[2020-06-21 09:35] VITALS: BP 137/80; TEMP 98
[2020-06-21] MEDS: IBUPROFEN 600 MG TAB PO PRN (11:50)
[2020-06-21 11:57] VITALS: PULSE 82
--- NOTE | 2020-06-21 16:49 | P.DS ---
Providers Date of admission: 06/17/20 08:16 Expected date of discharge: 06/21/20 Attending physician: Hollis Chong MD Consults: 06/17/20 08:13 Consult Physician Routine Consulting Provider: Eduardo Thakkar Consult Reason/Comments: Facial mass Do you want consulting provider notified?: Yes Consult Physician Urgent Consulting Provider: Michael Shen Consult Reason/Comments: Facial mass rule out malignancy Do you want consulting provider notified?: Yes 06/17/20 16:04 Consult Physician Routine Consulting Provider: Obed Jorgensen Consult Reason/Comments: r/o chin malignancy biopsy Do you want consulting provider notified?: Already Contacted Primary care physician: Hollis Chong MD Hospital Course: Final Diagnoses: 1. Submandibular mass, status post biopsy, pathology pending 2. COPD 3. Hypothyroidism. 4. History of shingles with lesion 5. Former nicotine dependence Hospital course:Rony Nicole is a 65 yo F with PMH of COPD who presented to the ED with an enlarging mass under her chin. She states that over the past 3 months it has worsened, she has had multiple teeth pulled in the past and was previously told by a dentist there was a retained fragment in her jaw. She had been treated with antibiotics initially as well as had a CT scan which was unremarkable. Despite this her mass has continued to grow. On presentation vitals stable, CT with nonspecific soft mass, WBC 7k. 06/18/2020 maintained on IV antibiotics, consenting only to biopsy of chin. Declining further workup with CTs. Denies chin pain. Denies chest pain, palpitations or increasing shortness of breath. Afebrile, normal WBC. Hemoglobin 10.5, platelets 273. Potassium 3.4. Evaluated by both ENT and oncology. Completed biopsy, tolerated procedure well. Pathology pending. Pain controlled. Less tender. Denies chest pain, palpitations or shortness of breath. Afebrile. Denies fever or chills. Patient will be discharged home today in stable condition with guarded prognosis. Motrin/Tylenol for pain control. Further pain management with Dr. Chong in clinic, as needed. Advised to follow-up with oncology regarding pathology results/recommendations. The impression and plan of care has been dictated as directed. : I performed a history and examination of this patient, discussed the same with the dictator. I agree with the dictator's note ,documented as a scribe. Any additional findings or plans will be noted. Patient Condition at Discharge: Stable Plan - Discharge Summary Discharge Rx Participant: Yes New Discharge Prescriptions: New Amoxic-Pot Clav 875-125Mg [Augmentin 875-125] 1 each PO Q12HR #4 tab Docusate [Colace] 100 mg PO BID cap Famotidine [Pepcid] 20 mg PO BID #60 tablet Continue Albuterol Sulfate [Proventil Hfa] 1 puff INHALATION RT-Q6H PRN PRN Reason: Shortness Of Breath Albuterol Nebulized [Ventolin Nebulized] 2.5 mg INHALATION RT-Q4H PRN PRN Reason: Shortness Of Breath lamoTRIgine [LaMICtal] 25 mg PO BID Levothyroxine Sodium [Synthroid] 125 mcg PO DAILY DULoxetine HCL [Cymbalta] 30 mg PO DAILY Nicotine 14Mg/24Hr Patch [Habitrol] 1 patch TRANSDERM DAILY Ibuprofen [Motrin] 400 mg PO Q8H PRN PRN Reason: Pain busPIRone HCl [Buspar] 20 mg PO BID Discontinued diphenhydrAMINE [Benadryl] 50 mg PO BID PRN PRN Reason: allergies Discharge Medication List Albuterol Nebulized [Ventolin Nebulized] 2.5 mg INHALATION RT-Q4H PRN 06/17/20 [History] Albuterol Sulfate [Proventil Hfa] 1 puff INHALATION RT-Q6H PRN 06/17/20 [History] DULoxetine HCL [Cymbalta] 30 mg PO DAILY 06/17/20 [History] Ibuprofen [Motrin] 400 mg PO Q8H PRN 06/17/20 [History] Levothyroxine Sodium [Synthroid] 125 mcg PO DAILY 06/17/20 [History] Nicotine 14Mg/24Hr Patch [Habitrol] 1 patch TRANSDERM DAILY 06/17/20 [History] busPIRone HCl [Buspar] 20 mg PO BID 06/17/20 [History] lamoTRIgine [LaMICtal] 25 mg PO BID 06/17/20 [History] Amoxic-Pot Clav 875-125Mg [Augmentin 875-125] 1 each PO Q12HR #4 tab 06/21/20 [Rx] Docusate [Colace] 100 mg PO BID cap 06/21/20 [Rx] Famotidine [Pepcid] 20 mg PO BID #60 tablet 06/21/20 [Rx] Follow up Appointment(s)/Referral(s): Michael Shen MD [STAFF PHYSICIAN] - 2 Weeks Aging,[place] [facility] [NON-STAFF] - [facility] [REFERRING] - Hollis Chong MD [Primary Care Provider] - 06/25/20 2:00 pm [facility], [NON-STAFF] - 1 Week Activity/Diet/Wound Care/Special Instructions: any fever, chills, severe pain or concerns, call Dr Chong and notify him. keep the area clean and dry. you may take ibuprofen or acretaminophen as needed for pain. Discharge/Stand Alone Forms: Who Do I Call?, Community Resources
--- NOTE | 2020-06-21 22:21 | P.PN ---
Subjective Progress Note Date: 06/21/20 Principal diagnosis: large submental mass Patient is anxious for discharge, path is still pending. Objective - Vital Signs Vital signs: Vital Signs Temp 98.0 F 06/21/20 08:41 Pulse 82 06/21/20 12:05 Resp 16 06/21/20 08:41 BP 137/80 06/21/20 08:41 Pulse Ox 96 06/21/20 08:41 Intake & Output 06/21/20 06/21/20 06/22/20 06:59 18:59 06:59 Other: # Voids 1 - Exam Large dimpled, orange de peau appearing mass overtaking entire chin and sub mandigular region, with large necrotic area within middle. - Constitutional General appearance: cooperative - EENT ENT: hard of hearing - Neck Neck: normal ROM - Cardiovascular Rhythm: regular - Gastrointestinal General gastrointestinal: soft - Integumentary Scabbed area of recent shingles - Neurologic Neurologic: CNII-XII intact - Musculoskeletal Musculoskeletal: generalized weakness - Psychiatric Psychiatric: A&O x's 3, appropriate affect, intact judgment & insight - Labs CBC & Chem 7: 06/21/20 07:25 06/21/20 07:25 Labs: Abnormal Lab Results - Last 24 Hours (Table) 06/21/20 06/21/20 Range/Units 07:25 07:25 RBC 2.92 L (3.80-5.40) m/uL Hgb 9.0 L (11.4-16.0) gm/dL Hct 27.7 L (34.0-46.0) % Lymphocytes # 0.6 L (1.0-4.8) k/uL Sodium 136 L (137-145) mmol/L Microbiology - Last 24 Hours (Table) 06/17/20 06:25 Blood Culture - Preliminary Blood No Growth after 96 hours 06/17/20 06:23 Blood Culture - Preliminary Blood No Growth after 96 hours 06/18/20 11:05 Gram Stain - Final Other - Other Wound Culture - Final Assessment and Plan Plan: Assessment and Recommenations: Large Submandibular mass: - ENT and Surgery have evaluated - IR to biopsy - Concerning for underlying malignancy necrosis centralzed versus large abscess versus acinomycosis - CT Chest/Abdomen and Pelvis for initial staging Await results of pathology
== END 2020-06-21 14:58 ==
LOC: EC 04:48 → 6PED 08:16
PROVIDERS: ADMIT Family Medicine; ATTEND Family Medicine
DX: C85.11 Unspecified B-cell lymphoma, lymph nodes of head, face, and neck (principal); L02.01 Cutaneous abscess of face; J43.9 Emphysema, unspecified; B02.29 Other postherpetic nervous system involvement; J34.2 Deviated nasal septum; J34.3 Hypertrophy of nasal turbinates; M27.0 Developmental disorders of jaws; E78.5 Hyperlipidemia, unspecified; M19.90 Unspecified osteoarthritis, unspecified site; G43.909 Migraine, unspecified, not intractable, without status migrainosus; E03.9 Hypothyroidism, unspecified; H91.90 Unspecified hearing loss, unspecified ear; F32.9 Major depressive disorder, single episode, unspecified; F41.9 Anxiety disorder, unspecified; F17.210 Nicotine dependence, cigarettes, uncomplicated; E66.9 Obesity, unspecified; Z68.26 Body mass index [BMI] 26.0-26.9, adult; Z86.19 Personal history of other infectious and parasitic diseases; Z86.011 Personal history of benign neoplasm of the brain; Z79.890 Hormone replacement therapy; Z79.1 Long term (current) use of non-steroidal anti-inflammatories (NSAID); Z79.899 Other long term (current) drug therapy; Z86.018 Personal history of other benign neoplasm; Z90.710 Acquired absence of both cervix and uterus; Z96.652 Presence of left artificial knee joint; Z80.9 Family history of malignant neoplasm, unspecified
CPT/HCPCS: 96366 ×3; 96376; 96365; 96375; 99285; 36415; 94640 ×9; 88305; 80053 ×2; 80048 ×2; 82565; 83605; 83735; 84132; 84520; 85025 ×4; 88342; 87040; 88341; 87070; 87205; 87075; 20206; 76942; 10005; 70491; G0378 ×5; S4990 ×5; J2270; J2405; J0295 ×4; J7512 ×2; Q9967

== ENCOUNTER → 2020-07-09 | Outpatient (CLI) | payer OTHER ==
--- NOTE | 2020-07-12 11:43 | PE ---
EXAMINATION TYPE: PET CT fusion skull to thigh DATE OF EXAM: 07/09/2020 COMPARISON: CT neck June 17, 2020. HISTORY: Newly diagnosed lymphoma on biopsy June 18, 2020 of the neck. TECHNIQUE: Following the intravenous administration of 13.15 mCi of F-18 FDG, whole body images are performed from the skull base to the midthigh. Images are reviewed on the computer in the coronal, a xial, and sagittal planes. Reconstructed rotating images are created on independent workstation and reviewed on the computer. A localization and attenuation correction CT is performed in conjunction with the PET scan. Blood glucose level equals 135. SCAN: Initial Scan FINDINGS: Mean SUV mediastinum: 0.34 Mean SUV liver: 1.26 SKULL BASE AND NECK: Redemonstration of large mass corresponding to biopsy-proven lymphoma beginning at the level of the mandible extending inferiorly Measuring approximately 8.5 x 8.4 cm axial image 5 5, max SUV is 12.72 posterior slight left aspect. There are 2 hypermetabolic left parotid nodules, larger is posteriorly image 30 measuring 1.1 x 1.0 c m, max SUV is 3.64. Few prominent but subcentimeter left neck lymph nodes, mildly hypermetabolic hypermetabolic uptake ax ial image 40 above the hyoid bone posteriorly, the max SUV is less than 2.5. CHEST, MEDIASTINUM, AND HILAR REGION: Mild underlying emphysematous change. No areas of abnormal hype rmetabolic uptake. ABDOMEN AND PELVIS: Normal excretion is seen. Mild nonspecific uptake corresponds to gastric lumen. T here are hypermetabolic enlarged left groin lymph nodes, largest inferiorly axial image 221 measures 3.8 x 2.8 cm, max SUV is 10.38. Mild uptake in the left lateral thigh and inferior medial thigh muscles presumed postinflammatory. No additional areas of abnormal hypermetabolic uptake. OSSEOUS STRUCTURES: No areas of abnormal hypermetabolic uptake. OTHER CT: Cholecystectomy clips are seen. Uterus is surgically absent or markedly atrophic. Mild calc ified plaque of distal abdominal aorta. Some straightening of spine on sagittal images. IMPRESSION: Uptake in large submandibular mass consistent with known biopsy proven lymphoma. There is suspected left groin involvement. Possible left parotid involvement and additional suspicious subcen timeter left-sided neck lymph nodes. No thoracic metastatic disease identified.
== END | disposition home or self-care (01) ==
LOC: RADPETMAIN 13:05
PROVIDERS: ATTEND Internal Medicine Hematology & Oncology
DX: C83.31 Diffuse large B-cell lymphoma, lymph nodes of head, face, and neck (principal)
CPT/HCPCS: 78815; A9552

== ENCOUNTER 2020-07-29 08:40 | Inpatient (IN) | payer OTHER ==
[~2020-07-29 08:40] MED LIST: diphenhydrAMINE 50 MG/ML 1 ML VIAL IVP ONE
[2020-07-30] MEDS ORDERED: ONDANSETRON 4 MG/2 ML VIAL IVP PRN (09:00)
[2020-07-30] MEDS ORDERED: SODIUM CHLORIDE 0.9% 1,000 ML IV SCH (09:00)
[2020-07-30 10:04] LABS: INR 0.8 (<1.2); Prothrombin Time 9.4 sec (9.0-12.0)
[2020-07-30 10:05] LABS: HCT 31.4 % (34.0-46.0); HGB 10.2 gm/dL (11.4-16.0); Hypochromasia Slight; MCH 30.5 pg (25.0-35.0); MCHC 32.3 g/dL (31.0-37.0); MCV 94.4 fL (80.0-100.0); Mean Platelet Volume 6.7; Platelet Count 304 k/uL (150-450); RBC 3.33 m/uL (3.80-5.40); RDW 14.4 % (11.5-15.5); WBC 6.9 k/uL (3.8-10.6)
[2020-07-30 10:09] LABS: ALT 28 U/L (4-34); AST 30 U/L (14-36); African American GFR (CKD) >90 (>60 ml/min/1.73 sqM); Albumin 3.7 g/dL (3.5-5.0); Albumin/Globulin Ratio 1.4; Alkaline Phosphatase 73 U/L (38-126); Anion Gap 4 mmol/L; Blood Urea Nitrogen 16 mg/dL (7-17); Calcium 9.7 mg/dL (8.4-10.2); Carbon Dioxide 35 mmol/L (22-30); Chloride 99 mmol/L (98-107); Globulin 2.7 g/dL; Glucose 104 mg/dL (74-99); Non-African American GFR(CKD) >90 (>60 ml/min/1.73 sqM); Sodium 138 mmol/L (137-145); Total Bilirubin 0.3 mg/dL (0.2-1.3); Total Protein 6.4 g/dL (6.3-8.2); Uric Acid 3.7 mg/dL (3.7-7.4)
[2020-07-30] MEDS: HYDROcodone/APAP 7.5-325MG 1 EACH TAB PO PRN ×3 (11:01→23:47)
[2020-07-30] MEDS: predniSONE 20 MG TAB PO SCH ×2 (12:38→20:50)
[2020-07-30] MEDS: predniSONE 50 MG TAB PO SCH ×2 (12:39→20:50)
[2020-07-30 13:02] VITALS: BMI 27.4
[2020-07-30] MEDS ORDERED: GABAPENTIN 300 MG CAP PO PRN (16:04)
[2020-07-30] MEDS ORDERED: HYDROcodone/APAP 5-325MG 1 EACH TAB PO PRN (16:04)
--- NOTE | 2020-07-30 16:14 | P.CONS ---
History of Present Illness - Reason for Consult Infection of the malignant ulcer - History of Present Illness She is admitted for R_CHOP chemotherapy for cycle for B-cell lymphoma. Patient has an ulcer in the right mandibular area which appears to become indicating with the oral cavity patient's ulcer appeared to be malignant with dental or osseous complements and it patient does have purulent drainage coming out of it patient doesn't have any fever chills because of the communication of this ulcer with oral cavity and purulent drainage patient will be started on Zosyn infectious disease will be consulted. Patient denied any fever chills patient was diagnosed with B-cell lymphoma about the 2 months ago patient had a facial mass at the time. Review of Systems REVIEW OF SYSTEMS: CONSTITUTIONAL: No fever, no malaise, no fatigue. HEENT: No recent visual problems or hearing problems. Denied any sore throat. CARDIOVASCULAR: No chest pain, orthopnea, PND, no palpitations, no syncope. PULMONARY: No shortness of breath, no cough, no hemoptysis. GASTROINTESTINAL: No diarrhea, no nausea, no vomiting, no abdominal pain. NEUROLOGICAL: No headaches, no weakness, no numbness. HEMATOLOGICAL: Denies any bleeding or petechiae. GENITOURINARY: Denies any burning micturition, frequency, or urgency. MUSCULOSKELETAL/RHEUMATOLOGICAL: Denies any joint pain, swelling, or any muscle pain. ENDOCRINE: Denies any polyuria or polydipsia. The rest of the 14-point review of systems is negative. Past Medical History Past Medical History: Asthma, Cancer, COPD, GERD/Reflux, Osteoarthritis (OA), Thyroid Disorder Additional Past Medical History / Comment(s): 06/17/20 submandible mass/+ high grade lymphoma, benign brain tumor surgically removed, 2 benign abdominal tumors removed, chronic back and bilateral knee pain and pt states past 2 weeks has had L leg pain/difficulty walking, constipation, migraines, hypothyroid History of Any Multi-Drug Resistant Organisms: None Reported Past Surgical History: Hysterectomy, Joint Replacement Additional Past Surgical History / Comment(s): Total Left knee. Exc brain tumor 2018. Exc 2 abd tumors. Submental mass biopsy. Past Anesthesia/Blood Transfusion Reactions: No Reported Reaction Smoking Status: Former smoker - Past Family History Mother Family Medical History: Cancer Additional Family Medical History / Comment(s): Brain cancer Father Family Medical History: Cancer Additional Family Medical History / Comment(s): Bone cancer Medications and Allergies Home Medications Medication Instructions Recorded Confirmed Type Albuterol Sulfate [Proventil Hfa] 2 puff INHALATION RT-QID PRN 06/17/20 07/30/20 History DULoxetine HCL [Cymbalta] 30 mg PO DAILY 06/17/20 07/30/20 History Ibuprofen [Motrin] 400 mg PO Q8H PRN 06/17/20 07/30/20 History busPIRone HCl [Buspar] 10 mg PO BID 06/17/20 07/30/20 History Cyclobenzaprine [Flexeril] 10 mg PO HS PRN 07/30/20 07/30/20 History Gabapentin 600 mg PO TID PRN 07/30/20 07/30/20 History HYDROcodone/APAP 5-325MG [[place] 1 tab PO Q6H PRN 07/30/20 07/30/20 History 5-325] lisinopriL [Zestril] 10 mg PO DAILY 07/30/20 07/30/20 History Allergies Allergy/AdvReac Type Severity Reaction Status Date / Time No Known Allergies Allergy Verified 07/30/20 12:54 Physical Exam Vitals: Vital Signs Temp Pulse Resp BP Pulse Ox 07/30/20 09:29 98.3 F 90 16 138/88 96 Intake and Output 07/30/20 07/30/20 07/30/20 06:59 14:59 22:59 Other: Voiding Method Toilet Weight 57.606 kg PHYSICAL EXAMINATION: GENERAL: The patient is alert and oriented x3, not in any acute distress. Well developed, well nourished. HEENT: Pupils are round and equally reacting to light. EOMI. No scleral icterus. No conjunctival pallor. Normocephalic, atraumatic. No pharyngeal erythema. No thyromegaly. CARDIOVASCULAR: S1 and S2 present. No murmurs, rubs, or gallops. PULMONARY: Chest is clear to auscultation, no wheezing or crackles. ABDOMEN: Soft, nontender, nondistended, normoactive bowel sounds. No palpable organomegaly. MUSCULOSKELETAL: No joint swelling or deformity. EXTREMITIES: No cyanosis, clubbing, or pedal edema. NEUROLOGICAL: Gross neurological examination did not reveal any focal deficits. SKIN: Has an ulcer in the right mandibular area as mentioned above which appears to be communicating with oral cavity. Purulent drainage from the ulcer. Results CBC & Chem 7: 07/30/20 09:29 07/30/20 09:29 Labs: Abnormal Lab Results - Last 24 Hours (Table) 07/30/20 07/30/20 Range/Units 09:29 09:29 RBC 3.33 L (3.80-5.40) m/uL Hgb 10.2 L (11.4-16.0) gm/dL Hct 31.4 L (34.0-46.0) % Carbon Dioxide 35 H (22-30) mmol/L Glucose 104 H (74-99) mg/dL Assessment and Plan Plan: -Possible infected malignant ulcer in the right mandible area: Infectious disease will be consulted wound cultures will be obtained patient was started on Zosyn -B-cell lymphoma: Patient is being initiated on R-CHOP chemotherapy -COPD without any exacerbation -Hypothyroidism -DVT prophylaxis as per primary service -GI prophylaxis with Pepcid
[2020-07-30] MEDS ORDERED: ONDANSETRON 16 MG in SODIUM CHLORIDE 0.9% 50 ML IVPB SCH (16:30)
[2020-07-30] MEDS ORDERED: diphenhydrAMINE 50 MG/ML 1 ML VIAL IVP ONE (16:30)
[2020-07-30] MEDS ORDERED: methylPREDNISolone SOD SUCCI 125 MG/2 ML VIAL IV ONE (16:30)
[2020-07-30] MEDS ORDERED: FAMOTIDINE 20 MG/2 ML VIAL IV SCH (16:30)
[2020-07-30] MEDS: PIPERACILLIN-TAZOBACTAM 3.375 GM in SODIUM CHLORIDE 0.9% 100 ML IVPB SCH ×2 (16:40→23:47)
[2020-07-30] MEDS ORDERED: RITUXIMAB PVVR IV ONE (17:00)
[2020-07-30] MEDS ORDERED: SODIUM CHLORIDE 0.9% IV ONE (17:00)
[2020-07-30] MEDS: SODIUM CHLORIDE 0.9% 1,000 ML IV SCH (17:36)
--- NOTE | 2020-07-30 17:46 | IR ---
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 The risks, complications, benefits, and alternatives we re discussed and any questions were answered. Informed consent was obtained. The patient was placed supine. Maximal barrier technique utilized. After informed consent, the skin o verlying the left basilic vein was localized with ultrasound and noted to be compressible and patent. An ultrasound image was obtained and submitted on the patient's chart. Sterile technique utilized w ith the ultrasound machine. The skin overlying was prepped and draped and Lidocaine used for local an esthesia. Access was gained to the vein under ultrasound guidance with a 21 gauge needle and a 0.018 inch wire was advanced. A skin shasha was made with a scalpel. Access site was dilated with Peel-Away s roberto. 5 FR dual lumen catheter tailored to the appropriate length of 42 cm and advanced such that th e distal tip is at the cavoatrial junction. Spot image was obtained verifying PICC placement. Cathete r was fixed to the skin and a sterile dressing was placed following hemostasis. Catheter was aspirate d and flushed with saline. Patient was discharged from the radiology department in stable condition w ithout immediate complication. Fluoro time: 0.1 minute Fluoroscopic images obtained: 1 IMPRESSION: Status post ultrasound-guided and fluoroscopic-guided left PICC placement, ready for use.
--- NOTE | 2020-07-30 19:53 | P.HPIM ---
History of Present Illness H&P Date: 07/30/20 Ms Nicole is a pleasant white female, initially seen in consult at [facility] on 06/17/20. The patient had presented with a mass on her left chin area that has had about 3 months ago and had persistently grown since. This is causing progressive pain, as well as mild difficulty in speaking an opening her mouth. She is still able to swallow reasonably and denied any difficulty in breathing. CT scan of soft tissue neck showed a 5.8 x 3.7 x 6.3 cm submental component with treatment dialysis component measuring 5.3 x 2 x 2.3 cm. The patient had an ultrasound and biopsy on 06/18/20 and was subsequently discharged with pain control. Labs had shown hemoglobin of 9, WBC 4 and p latelets 202. Biopsy came back positive for diffuse large B-cell lymphoma. Additional biomarker testing revealed BCL-2 gene rearrangement. There was evidence of partial BCL 6 and RENETTA deletion, but radiant rearrangement of either of these genes could not be ruled out. Therefore the possibility of double/triple hit lymphoma could not be excluded. Patient had a PET scan as an outpatient on 07/09/20. This showed the mandibular mass measuring 8.5 x 8.4 cm with SUV of 12.72. There were 2 hypermetabolic left parotid nodules, mildly hypermetabolic left neck nodes, and hypermetabolic left groin nodes largest measuring 3.8 x 2.8 cm. The patient rescheduled her PET scan, and then also her follow-up appointments. She was started on [place] as an outpatient. She was seen for her first office visit on 07/15/20. She has now been admitted for R-EPOCH Review of Systems All systems: negative Constitutional: Reports as per HPI Past Medical History Past Medical History: Asthma, Cancer, COPD, GERD/Reflux, Osteoarthritis (OA), Thyroid Disorder Additional Past Medical History / Comment(s): 06/17/20 submandible mass/+ high grade lymphoma, benign brain tumor surgically removed, 2 benign abdominal tumors removed, chronic back and bilateral knee pain and pt states past 2 weeks has had L leg pain/difficulty walking, constipation, migraines, hypothyroid History of Any Multi-Drug Resistant Organisms: None Reported Past Surgical History: Hysterectomy, Joint Replacement Additional Past Surgical History / Comment(s): Total Left knee. Exc brain tumor 2018. Exc 2 abd tumors. Submental mass biopsy. Past Anesthesia/Blood Transfusion Reactions: No Reported Reaction Smoking Status: Former smoker - Past Family History Mother Family Medical History: Cancer Additional Family Medical History / Comment(s): Brain cancer Father Family Medical History: Cancer Additional Family Medical History / Comment(s): Bone cancer Medications and Allergies Home Medications Medication Instructions Recorded Confirmed Type Albuterol Sulfate [Proventil Hfa] 2 puff INHALATION RT-QID PRN 06/17/20 07/30/20 History DULoxetine HCL [Cymbalta] 30 mg PO DAILY 06/17/20 07/30/20 History Ibuprofen [Motrin] 400 mg PO Q8H PRN 06/17/20 07/30/20 History busPIRone HCl [Buspar] 10 mg PO BID 06/17/20 07/30/20 History Cyclobenzaprine [Flexeril] 10 mg PO HS PRN 07/30/20 07/30/20 History Gabapentin 600 mg PO TID PRN 07/30/20 07/30/20 History HYDROcodone/APAP 5-325MG [[place] 1 tab PO Q6H PRN 07/30/20 07/30/20 History 5-325] lisinopriL [Zestril] 10 mg PO DAILY 07/30/20 07/30/20 History Allergies Allergy/AdvReac Type Severity Reaction Status Date / Time No Known Allergies Allergy Verified 07/30/20 12:54 Physical Exam Vitals: Vital Signs Temp Pulse Pulse Resp BP BP Pulse Ox 07/30/20 19:15 103 H 18 160/99 89 L 07/30/20 17:17 97.6 F 93 14 159/90 93 L 07/30/20 09:29 98.3 F 90 16 138/88 96 Intake and Output 07/30/20 07/30/20 07/30/20 06:59 14:59 22:59 Intake Total 188.334 Balance 188.334 Intake: Intake, IV Titration 188.334 Amount riTUXimab PVVR 560 mg In 188.334 Sodium Chloride 0.9% 500 ml 500 ml @ Titrate IV . Q0M ONE Rx#:[id number] Other: Voiding Method Toilet Weight 57.606 kg Large chin mass with necrotic hole in middle, dry, +odor - Constitutional General appearance: cooperative, no acute distress - Respiratory Respiratory: bilateral: CTA, diminished - Cardiovascular Rhythm: regular - Gastrointestinal General gastrointestinal: normal bowel sounds Localized gastrointestinal: rebound: suprabubic - Integumentary Integumentary: pale - Neurologic Neurologic: CNII-XII intact - Musculoskeletal Musculoskeletal: generalized weakness - Psychiatric Psychiatric: A&O x's 3 Results CBC & Chem 7: 07/30/20 09:29 07/30/20 09:29 Labs: Abnormal Lab Results - Last 24 Hours (Table) 07/30/20 07/30/20 Range/Units 09:29 09:29 RBC 3.33 L (3.80-5.40) m/uL Hgb 10.2 L (11.4-16.0) gm/dL Hct 31.4 L (34.0-46.0) % Carbon Dioxide 35 H (22-30) mmol/L Glucose 104 H (74-99) mg/dL Thrombosis Risk Factor Assmnt - DVT/VTE Prophylaxis DVT/VTE Prophylaxis: Pharmacologic Prophylaxis ordered - Choose All That Apply Any of the Below Risk Factors Present?: Yes Each Factor Represents 1 point: Abnormal pulmonary function (COPD), Obesity (BMI >25) Each Risk Factor Represents 2 Points: Age 61-74 years, Malignancy Other congenital or acquired thrombophilia - If yes, enter type in comment: No Thrombosis Risk Factor Assessment Total Risk Factor Score: 6 Thrombosis Risk Factor Assessment Level: High Risk Assessment and Plan (1) Non-Hodgkin lymphoma Current Visit: Yes Status: Acute Code(s): C85.90 - NON-HODGKIN LYMPHOMA, UNSPECIFIED, UNSPECIFIED SITE SNOMED Code(s): 386872893 Plan: Admitted for initial chemotherapy with R-EPOCH Will receive Neulasta in office after completion DVT/VTE Prophylaxis Medical management consult - Discussed with Primary team Antiemetics, PPI, and monitor for possible prophylaxis abx Physician attest: I have completed the full history and physical and agree with above dictation, dictated as a ascribe.
[2020-07-30] MEDS: ALBUTEROL HFA INHALER INHALATION PRN (19:54)
[2020-07-30] MEDS: busPIRone HCl 10 MG TAB PO SCH (20:50)
[2020-07-30] MEDS: [UNRECOGNIZED DRUG - OTHER] IV SCH (21:07)
[2020-07-30] MEDS: DOXORUBICIN HCL IV SCH (21:07)
[2020-07-30] MEDS: ETOPOSIDE IV SCH (21:07)
[2020-07-30] MEDS: VINCRISTINE SULFATE IV SCH (21:07)
[2020-07-31 05:43] LABS: Basophils % (A) 0 %; Eosinophils % (A) 0 %; HCT 28.8 % (34.0-46.0); HGB 8.8 gm/dL (11.4-16.0); Hypochromasia Slight; Lymphocytes # (A) 0.4 k/uL (1.0-4.8); Lymphocytes % (A) 3 %; MCH 28.7 pg (25.0-35.0); MCHC 30.5 g/dL (31.0-37.0); MCV 93.9 fL (80.0-100.0); Mean Platelet Volume 6.9; Monocytes # (A) 0.3 k/uL (0-1.0); Monocytes % (A) 2 %; Neutrophils # (A) 11.6 k/uL (1.3-7.7); Neutrophils % (A) 94 %; Platelet Count 275 k/uL (150-450); RBC 3.07 m/uL (3.80-5.40); RDW 14.6 % (11.5-15.5); Reticulocyte % 2.2 % (0.5-2.0); WBC 12.3 k/uL (3.8-10.6)
--- NOTE | 2020-07-31 07:20 | CONS ---
CONSULTATION DATE OF SERVICE: 07/30/2020 REASON FOR CONSULTATION: Left lower jaw wound and concern for cellulitis. HISTORY OF PRESENT ILLNESS: The patient is a 65-year-old female who started to have a problem with light chin pain, swelling and redness mentioned starting after a dental procedure. The patient mentioned to me in 3 years. However, the admitting history and physical says 3 months. The area has been biopsied with evidence of large B-cell lymphoma with a PET scan did show activity at the chin/mandible mouth, and some activity in the left parotid nodules and left neck nodules. The patient has been admitted to the hospital for initiation of the chemotherapy. The patient was evaluated by Internal Medicine Services with concern for draining wound and communication to the oral cavity. The patient was started on Zosyn. Local cultures obtained. Infectious Disease was consulted for further management of antibiotic therapy. The patient, at the time of my evaluation, denies having any fever or any chills. She has been complaining of pain to the left lower jaw wound area to be more of a throbbing to dull aching 5 to 6/10 and no radiation with draining wound. Some foul-smelling. Denies difficulty swallowing. No chest pain, shortness of breath or cough. No abdominal pain or any diarrhea. On presentation to the hospital, the patient has been afebrile. Did have a normal white count. REVIEW OF SYSTEMS: Positive points have been mentioned in HPI. Rest of systems are negative. PAST MEDICAL HISTORY: Large diffuse B-cell lymphoma, COPD, gastroesophageal reflux disease, hypothyroidism, migraine headaches. PAST SURGICAL HISTORY: Hysterectomy, left knee replacement. Resection of the brain tumor and biopsy of the mandible lesion. SOCIAL HISTORY: Remote history of smoking. No drinking or drug use. FAMILY HISTORY: Mother history of brain cancer. Father history of bone cancer. ALLERGIES: No known drug allergies. MEDICATIONS: The patient is currently on [place], Ventolin, Buspar, Flexeril, Lovenox, Neurontin, lisinopril, Zofran, Zosyn, Protonix, and prednisone. PHYSICAL EXAMINATION: Her blood pressure is 160/99 with a pulse of 103. Temperature 97.6. She is 99% on room air. General description: The patient is a middle-aged female up in the bed in no distress. No tachypnea or accessory muscles of respiration use. HEENT: Examination shows pallor. No scleral icterus. The patient did have a fungating wound lesion to the chin area with some slough tissue, minimal surrounding swelling, redness. NECK: Trachea central. No thyromegaly. LUNGS unlabored breathing. Clear to auscultation. No wheeze or crackles. HEART S1, S2. Regular rate and rhythm. ABDOMEN: Soft, no tenderness. No guarding. No rigidity. EXTREMITIES: No edema of the feet. SKIN: No rash or mass palpable. NEUROLOGICAL: Patient is awake, alert, and oriented x3. Mood and affect normal. LABS: Hemoglobin is 10.2 with white count 6.9, BUN of 16, creatinine 0.64. Local cultures currently pending. DIAGNOSTIC IMPRESSION AND PLAN: Patient with open wound to the chin/mandible area in this patient with underlying diagnosis of large B-cell lymphoma, the patient did have some inflammatory changes on the lesion, could be more likely related to malignancy. Clinically not behaving as significant wound infection or sepsis in this patient with no fever or elevated white count. PLAN: 1. We will wait for the local culture to finalize. 2. Continue with Zosyn 3.375 g q.8 hours. 3. We will follow on clinical condition and culture to further adjust medication if needed. Thank you for this consultation. We will follow this patient along with you. MMODL / IJN: [id number] /
[2020-07-31] MEDS: busPIRone HCl 10 MG TAB PO SCH ×2 (07:32→20:03)
[2020-07-31] MEDS: PIPERACILLIN-TAZOBACTAM 3.375 GM in SODIUM CHLORIDE 0.9% 100 ML IVPB SCH ×3 (07:32→23:29)
[2020-07-31] MEDS: predniSONE 50 MG TAB PO SCH ×2 (07:32→20:03)
[2020-07-31] MEDS: lisinopriL 10 MG TAB PO SCH (07:33)
[2020-07-31] MEDS: DULoxetine HCL 30 MG CAPSULE.DR PO SCH (07:33)
--- NOTE | 2020-07-31 07:35 | P.PN ---
Subjective Progress Note Date: 07/31/20 Principal diagnosis: DLBCL Pt had port placed and started chemo with R-EPOCH. Objective - Vital Signs Vital signs: Vital Signs Temp 98.3 F 07/31/20 04:15 Pulse 95 07/31/20 04:15 Resp 16 07/31/20 04:15 BP 136/79 07/31/20 04:15 Pulse Ox 92 L 07/31/20 04:15 Intake & Output 07/30/20 07/31/20 07/31/20 18:59 06:59 18:59 Intake Total 85.834 365.833 Balance 85.834 365.833 Weight 57.606 kg Intake: Intake, IV Titration 85.834 205.833 Amount riTUXimab PVVR 560 mg In 85.834 205.833 Sodium Chloride 0.9% 500 ml 500 ml @ Titrate IV . Q0M ONE Rx#:[id number] Oral 160 Other: Voiding Method Toilet Toilet # Voids 3 # Bowel Movements 0 - Exam Gen.: No acute distress. HEENT: Mucosa moist. Neck: Supple. Lungs: No respiratory distress. Heart: Regular rate. Abdomen: Soft. MSK: No obvious deformities. Neuro: Alert and oriented 3. Psych: Appropriate affect. - Labs CBC & Chem 7: 07/31/20 05:24 07/30/20 09:29 Labs: Abnormal Lab Results - Last 24 Hours (Table) 07/30/20 07/30/20 07/31/20 Range/Units 09:29 09:29 05:24 WBC 12.3 H (3.8-10.6) k/uL RBC 3.33 L 3.07 L (3.80-5.40) m/uL Hgb 10.2 L 8.8 L (11.4-16.0) gm/dL Hct 31.4 L 28.8 L (34.0-46.0) % MCHC 30.5 L (31.0-37.0) g/dL Neutrophils # 11.6 H (1.3-7.7) k/uL Lymphocytes # 0.4 L (1.0-4.8) k/uL Retic Count 2.2 H (0.5-2.0) % Carbon Dioxide 35 H (22-30) mmol/L Glucose 104 H (74-99) mg/dL Microbiology - Last 24 Hours (Table) 07/30/20 15:53 Wound Culture - Preliminary Mandible - Right 07/30/20 15:53 Anaerobic Culture - Preliminary Mandible - Right Assessment and Plan Assessment: 1. DLBCL 2. Mild anemia 3. Reactive leukocytosis due to steroids Plan: Ms. Nicole is a very pleasant 65-year-old female with recently diagnosed DL BCL who is here for chemotherapy with REPOCH. She had a port placed yesterday and was started on chemo. Tolerating well so far. Continue chemo and monitor her for symptoms as well as labs. Mild acute on chronic anemia after port placed. We'll monitor plan on supportive transfusion. Mild leukocytosis due to steroid use.
[2020-07-31] MEDS: SODIUM CHLORIDE 0.9% 1,000 ML IV SCH ×2 (07:57→20:09)
[2020-07-31] MEDS: ENOXAPARIN 40 MG/0.4 ML SYRINGE SQ SCH (08:09)
[2020-07-31] MEDS: PANTOPRAZOLE 40 MG TABLET PO SCH ×2 (08:10→16:38)
[2020-07-31] MEDS: SENNOSIDES 8.6 MG TAB PO SCH (08:10)
[2020-07-31] MEDS: predniSONE 20 MG TAB PO SCH ×2 (08:10→20:03)
[2020-07-31 09:41] LABS: Ferritin 37.2 ng/mL (10.0-291.0); Folate, Serum 6.4 ng/mL
[2020-07-31 09:59] LABS: % Iron Saturation 14.95 (12.00-45.00); African American GFR (CKD) 112.4 (60.0-200.0); Albumin 3.6 g/dL (3.80-4.90); Anion Gap 7.5 mmol/L (4.00-12.00); BUN/Creat Ratio 31.67 Ratio (12.00-20.00); Calcium 8.2 mg/dL (8.7-10.3); Carbon Dioxide 29.5 mmol/L (21.6-31.8); Globulin 1.8 g/dL (1.6-3.3); Magnesium 1.7 mg/dL (1.5-2.4); Phosphorus 3.1 mg/dL (2.4-5.1); Potassium 4.7 mmol/L (3.5-5.5); Total Bilirubin 0.2 mg/dL (0.2-1.2); Total Protein 5.4 g/dL (6.2-8.2); Uric Acid 2.7 mg/dL (2.9-7.7)
[2020-07-31] MEDS: ALBUTEROL HFA INHALER INHALATION PRN ×2 (11:30→19:23)
--- NOTE | 2020-07-31 11:43 | P.PN ---
Subjective She is admitted for R_CHOP chemotherapy for cycle for B-cell lymphoma. Patient has an ulcer in the right mandibular area which appears to become indicating with the oral cavity patient's ulcer appeared to be malignant with dental or osseous complements and it patient does have purulent drainage coming out of it patient doesn't have any fever chills because of the communication of this ulcer with oral cavity and purulent drainage patient will be started on Zosyn infectious disease will be consulted. Patient denied any fever chills patient was diagnosed with B-cell lymphoma about the 2 months ago patient had a facial mass at the time. 07/31/2020 Patient is on R-EPOCH chemotherapy. Patient is clinically doing well no complaints at this time. Patient is receiving Zosyn for necrotizing ulcer from cancer with possible infection cultures are pending. Constitutional: Denied any fatigue denied any fever. Cardio vascular: denied any chest pain, palpitations Gastrointestinal denied any nausea vomiting Pulmonary: Denied any shortness of breath cough Neurologic denied any new focal deficits All inpatient medications were reviewed and appropriate changes in these medications as dictated in the interval history and assessment and plan. Objective - Vital Signs Vital signs: Vital Signs Temp 98.2 F 07/31/20 08:00 Pulse 83 07/31/20 08:00 Resp 16 07/31/20 08:00 BP 121/80 07/31/20 08:00 Pulse Ox 92 L 07/31/20 08:00 Intake & Output 07/30/20 07/31/20 07/31/20 18:59 06:59 18:59 Intake Total 85.834 365.833 Balance 85.834 365.833 Weight 57.606 kg Intake: Intake, IV Titration 85.834 205.833 Amount riTUXimab PVVR 560 mg In 85.834 205.833 Sodium Chloride 0.9% 500 ml 500 ml @ Titrate IV . Q0M ONE Rx#:[id number] Oral 160 Other: Voiding Method Toilet Toilet Toilet # Voids 3 # Bowel Movements 0 - Exam PHYSICAL EXAMINATION: GENERAL: The patient is alert and oriented x3, not in any acute distress. Well developed, well nourished. HEENT: Pupils are round and equally reacting to light. EOMI. No scleral icterus. No conjunctival pallor. Normocephalic, atraumatic. No pharyngeal erythema. No thyromegaly. CARDIOVASCULAR: S1 and S2 present. No murmurs, rubs, or gallops. PULMONARY: Chest is clear to auscultation, no wheezing or crackles. ABDOMEN: Soft, nontender, nondistended, normoactive bowel sounds. No palpable organomegaly. MUSCULOSKELETAL: No joint swelling or deformity. EXTREMITIES: No cyanosis, clubbing, or pedal edema. NEUROLOGICAL: Gross neurological examination did not reveal any focal deficits. SKIN: Has an ulcer in the right mandibular area as mentioned above which appears to be communicating with oral cavity. Purulent drainage from the ulcer. - Labs CBC & Chem 7: 07/31/20 05:24 07/31/20 05:27 Labs: Abnormal Lab Results - Last 24 Hours (Table) 07/31/20 07/31/20 Range/Units 05:24 05:27 WBC 12.3 H (3.8-10.6) k/uL RBC 3.07 L (3.80-5.40) m/uL Hgb 8.8 L (11.4-16.0) gm/dL Hct 28.8 L (34.0-46.0) % MCHC 30.5 L (31.0-37.0) g/dL Neutrophils # 11.6 H (1.3-7.7) k/uL Lymphocytes # 0.4 L (1.0-4.8) k/uL Retic Count 2.2 H (0.5-2.0) % BUN/Creatinine Ratio 31.67 H (12.00-20.00) Ratio Glucose 191 H (70-110) mg/dL Uric Acid 2.7 L (2.9-7.7) mg/dL Calcium 8.2 L (8.7-10.3) mg/dL Iron 45 L (50-170) ug/dL Total Protein 5.4 L (6.2-8.2) g/dL Albumin 3.60 L (3.80-4.90) g/dL Microbiology - Last 24 Hours (Table) 07/30/20 15:53 Gram Stain - Preliminary Mandible - Right Wound Culture - Preliminary 07/30/20 15:53 Anaerobic Culture - Preliminary Mandible - Right Assessment and Plan Plan: -Possible infected malignant ulcer in the right mandible area: Infectious disease evaluated wound cultures will be obtained patient was started on Zosyn. Wound cultures are showing gram-positive cocci with the multiple morphologies gram-negative bacilli and gram-positive bacilli. -B-cell lymphoma: Patient is being initiated on R-EPOCH chemotherapy -COPD without any exacerbation -Hypothyroidism -DVT prophylaxis as per primary service -GI prophylaxis with Pepcid
[2020-07-31] MEDS: HYDROcodone/APAP 7.5-325MG 1 EACH TAB PO PRN ×3 (11:46→23:29)
[2020-07-31] MEDS: NICOTINE 21MG/24HR PATCH TRANSDERM SCH (12:20)
[2020-07-31] MEDS: ONDANSETRON 16 MG in SODIUM CHLORIDE 0.9% 50 ML IVPB SCH (19:10)
[2020-07-31] MEDS: ETOPOSIDE IV SCH (20:03)
[2020-07-31] MEDS: DOXORUBICIN HCL IV SCH (20:03)
[2020-07-31] MEDS: FAMOTIDINE 20 MG/2 ML VIAL IV SCH (20:03)
[2020-07-31] MEDS: [UNRECOGNIZED DRUG - OTHER] IV SCH (20:03)
[2020-07-31] MEDS: VINCRISTINE SULFATE IV SCH (20:03)
[2020-07-31] MEDS: CYCLOBENZAPRINE 10 MG TAB PO PRN (20:57)
--- NOTE | 2020-07-31 22:13 | PN ---
PROGRESS NOTE DATE OF SERVICE: 07/31/2020 REASON FOR FOLLOWUP: Jaw wound infection. INTERVAL HISTORY: The patient is afebrile. The patient denies any worsening pain or discomfort to the jaw area. The patient denies having any chest pain. She has complained of some shortness of breath and cough. No abdominal pain or diarrhea. PHYSICAL EXAMINATION: Blood pressure is 115/71 with a pulse of 86. Temperature 97.8. She is 90% on room air. General description is a middle-aged female lying in bed in no distress. HEENT examination: Jaw area did have a necrotic tumor with some surrounding swelling and drainage. LUNGS: Unlabored breathing. Clear to auscultation anteriorly. HEART: S1, S2. Regular rate and rhythm. Abdomen soft, no tenderness. LABS: Hemoglobin 8.8, white count 8.3, BUN of 19, creatinine 0.6. Cultures currently pending. DIAGNOSTIC IMPRESSION AND PLAN: Patient with jaw area necrotic tumor with large B-cell lymphoma and concern for possible secondary bacterial infection. Patient covered with Zosyn. Cultures are currently pending. Continue supportive care. MMODL / IJN: [id number] /
--- NOTE | 2020-08-01 07:21 | P.PN ---
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 Tolerating well. Today is day 3. Objective - Vital Signs Vital signs: Vital Signs Temp 97.6 F 08/01/20 04:00 Pulse 76 08/01/20 04:00 Resp 18 08/01/20 04:00 BP 128/74 08/01/20 04:00 Pulse Ox 92 L 08/01/20 04:00 Intake & Output 07/31/20 08/01/20 08/01/20 18:59 06:59 18:59 Intake Total 940 600 Balance 940 600 Intake: Intake, IV Titration 700 600 Amount Piperacillin-Tazobactam 3 100 .375 gm In Sodium Chloride 0.9% 100 ml @ 25 mls/hr IVPB Q8HR [facility] Rx# :[id number] Sodium Chloride 0.9% 1, 600 600 000 ml @ 75 mls/hr IV . [id number] [facility] Rx#:[id number] Oral 240 Other: Voiding Method Toilet Toilet # Voids 3 - Exam Gen.: No acute distress. HEENT: Mucosa moist. Neck: Supple. Lungs: No respiratory distress. Heart: Regular rate. Abdomen: Soft. MSK: No obvious deformities. Neuro: Alert and oriented 3. Psych: Appropriate affect. - Labs CBC & Chem 7: 07/31/20 05:24 07/31/20 05:27 Labs: Abnormal Lab Results - Last 24 Hours (Table) 07/31/20 Range/Units 05:27 BUN/Creatinine Ratio 31.67 H (12.00-20.00) Ratio Glucose 191 H (70-110) mg/dL Uric Acid 2.7 L (2.9-7.7) mg/dL Calcium 8.2 L (8.7-10.3) mg/dL Iron 45 L (50-170) ug/dL Total Protein 5.4 L (6.2-8.2) g/dL Albumin 3.60 L (3.80-4.90) g/dL Microbiology - Last 24 Hours (Table) 07/30/20 15:53 Gram Stain - Preliminary Mandible - Right Wound Culture - Preliminary Gram Neg Bacilli Gram Neg Bacilli#2 07/30/20 18:10 Blood Culture - Preliminary Blood No Growth after 24 hours Assessment and Plan Assessment: 1. DLBCL 2. Mild anemia 3. Reactive leukocytosis due to steroids 4. Superimposed infection of lymphoma facial mass Plan: Ms. Nicole is a very pleasant 65-year-old female with recently diagnosed DL BCL who is here for chemotherapy with REPOCH. She had a port placed yesterday and was started on chemo. Tolerating well so far. Continue chemo and monitor her for symptoms as well as labs. Monitor for TLS. Mild acute on chronic anemia after port placed. We'll monitor plan on supportive transfusion. Mild leukocytosis due to steroid use. Antibiotics for superimposed infection in lymphoma mass which is facial mass. IM following as well for medical management. ID on board for infection.
[2020-08-01] MEDS: SENNOSIDES 8.6 MG TAB PO SCH (09:22)
[2020-08-01] MEDS: predniSONE 20 MG TAB PO SCH ×2 (09:22→20:19)
[2020-08-01] MEDS: ENOXAPARIN 40 MG/0.4 ML SYRINGE SQ SCH (09:23)
[2020-08-01] MEDS: NICOTINE 21MG/24HR PATCH TRANSDERM SCH (09:23)
[2020-08-01] MEDS: PIPERACILLIN-TAZOBACTAM 3.375 GM in SODIUM CHLORIDE 0.9% 100 ML IVPB SCH ×2 (09:23→16:47)
[2020-08-01] MEDS: PANTOPRAZOLE 40 MG TABLET PO SCH ×2 (09:23→16:50)
[2020-08-01] MEDS: predniSONE 50 MG TAB PO SCH ×2 (09:24→20:19)
[2020-08-01] MEDS: DULoxetine HCL 30 MG CAPSULE.DR PO SCH (09:24)
[2020-08-01] MEDS: busPIRone HCl 10 MG TAB PO SCH ×2 (09:24→20:19)
[2020-08-01] MEDS: lisinopriL 10 MG TAB PO SCH (09:24)
[2020-08-01] MEDS: SODIUM CHLORIDE 0.9% 1,000 ML IV SCH ×2 (09:26→21:35)
[2020-08-01] MEDS: HYDROcodone/APAP 7.5-325MG 1 EACH TAB PO PRN ×2 (09:49→14:05)
--- NOTE | 2020-08-01 11:44 | P.PN ---
Subjective She is admitted for R_CHOP chemotherapy for cycle for B-cell lymphoma. Patient has an ulcer in the right mandibular area which appears to become indicating with the oral cavity patient's ulcer appeared to be malignant with dental or osseous complements and it patient does have purulent drainage coming out of it patient doesn't have any fever chills because of the communication of this ulcer with oral cavity and purulent drainage patient will be started on Zosyn infectious disease will be consulted. Patient denied any fever chills patient was diagnosed with B-cell lymphoma about the 2 months ago patient had a facial mass at the time. 07/31/2020 Patient is on R-EPOCH chemotherapy. Patient is clinically doing well no complaints at this time. Patient is receiving Zosyn for necrotizing ulcer from cancer with possible infection cultures are pending. 08/01/2020 patient is day 3 of chemotherapy and patient wound cultures are showing gram- negative bacilli, 2 different gram-negative bacilli as well as his culture is still pending Constitutional: Denied any fatigue denied any fever. Cardio vascular: denied any chest pain, palpitations Gastrointestinal denied any nausea vomiting Pulmonary: Denied any shortness of breath cough Neurologic denied any new focal deficits All inpatient medications were reviewed and appropriate changes in these medications as dictated in the interval history and assessment and plan. Objective - Vital Signs Vital signs: Vital Signs Temp 97.9 F 08/01/20 08:36 Pulse 95 08/01/20 08:36 Resp 16 08/01/20 08:36 BP 128/76 08/01/20 08:36 Pulse Ox 91 L 08/01/20 08:36 Intake & Output 07/31/20 08/01/20 08/01/20 18:59 06:59 18:59 Intake Total 940 600 Balance 940 600 Intake: Intake, IV Titration 700 600 Amount Piperacillin-Tazobactam 3 100 .375 gm In Sodium Chloride 0.9% 100 ml @ 25 mls/hr IVPB Q8HR [facility] Rx# :[id number] Sodium Chloride 0.9% 1, 600 600 000 ml @ 75 mls/hr IV . [id number] [facility] Rx#:[id number] Oral 240 Other: Voiding Method Toilet Toilet Toilet # Voids 3 - Exam PHYSICAL EXAMINATION: GENERAL: The patient is alert and oriented x3, not in any acute distress. Well developed, well nourished. HEENT: Pupils are round and equally reacting to light. EOMI. No scleral icterus. No conjunctival pallor. Normocephalic, atraumatic. No pharyngeal erythema. No thyromegaly. CARDIOVASCULAR: S1 and S2 present. No murmurs, rubs, or gallops. PULMONARY: Chest is clear to auscultation, no wheezing or crackles. ABDOMEN: Soft, nontender, nondistended, normoactive bowel sounds. No palpable organomegaly. MUSCULOSKELETAL: No joint swelling or deformity. EXTREMITIES: No cyanosis, clubbing, or pedal edema. NEUROLOGICAL: Gross neurological examination did not reveal any focal deficits. SKIN: Has an ulcer in the right mandibular area as mentioned above which appears to be communicating with oral cavity. Purulent drainage from the ulcer. - Labs CBC & Chem 7: 07/31/20 05:24 07/31/20 05:27 Labs: Microbiology - Last 24 Hours (Table) 07/30/20 15:53 Gram Stain - Preliminary Mandible - Right Wound Culture - Preliminary Gram Neg Bacilli Gram Neg Bacilli#2 07/30/20 18:10 Blood Culture - Preliminary Blood No Growth after 24 hours Assessment and Plan Plan: -Possible infected malignant ulcer in the right mandible area: Infectious disease evaluated wound cultures showing 2 different gram-negative bacilli and patient is presently on Zosyn. -B-cell lymphoma: Patient is being initiated on R-EPOCH chemotherapy day 3, on normal saline at 75 mL/h uric acid is not high. -COPD without any exacerbation -Hypothyroidism -DVT prophylaxis as per primary service -GI prophylaxis with Pepcid
--- NOTE | 2020-08-01 17:38 | PN ---
PROGRESS NOTE DATE OF SERVICE: 08/01/2020 REASON FOR FOLLOWUP: Infected jaw wound. INTERVAL HISTORY: The patient is currently afebrile. The patient denies any worsening pain to the jaw wound area. The patient denies having any chest pain, shortness of breath or cough. No abdominal pain. No diarrhea. PHYSICAL EXAMINATION: Blood pressure 140/84, pulse of 82, temperature 97.5. She is 94% on room air. General description is a middle-aged female up in the bed in no distress. The right lower jaw wound is currently dressed. LUNGS: Unlabored breathing. Clear to auscultation anteriorly. HEART: S1, S2. Regular rate and rhythm. Abdomen soft, no tenderness. LABS: Culture now showing a Gram-negative bacilli. DIAGNOSTIC IMPRESSION AND PLAN: Patient with right big toe wound from a fungating tumor with concern for possible secondary cellulitis. Local culture showing gram-negative. Patient is covered with Zosyn to continue while waiting for the culture to finalize and monitor clinical course closely. MMODL / IJN: [id number] /
[2020-08-01] MEDS: ONDANSETRON 16 MG in SODIUM CHLORIDE 0.9% 50 ML IVPB SCH (20:10)
[2020-08-01] MEDS: FAMOTIDINE 20 MG/2 ML VIAL IV SCH (20:10)
[2020-08-01] MEDS: ETOPOSIDE IV SCH (20:19)
[2020-08-01] MEDS: DOXORUBICIN HCL IV SCH (20:19)
[2020-08-01] MEDS: VINCRISTINE SULFATE IV SCH (20:19)
[2020-08-01] MEDS: [UNRECOGNIZED DRUG - OTHER] IV SCH (20:19)
[2020-08-02] MEDS: PIPERACILLIN-TAZOBACTAM 3.375 GM in SODIUM CHLORIDE 0.9% 100 ML IVPB SCH ×2 (00:02→08:42)
[2020-08-02] MEDS: HYDROcodone/APAP 7.5-325MG 1 EACH TAB PO PRN ×4 (03:44→20:46)
[2020-08-02 08:12] LABS: Basophils % (A) 0 %; Eosinophils # (A) 0.1 k/uL (0-0.7); Eosinophils % (A) 1 %; HCT 28.7 % (34.0-46.0); HGB 9.2 gm/dL (11.4-16.0); Hypochromasia Slight; Lymphocytes # (A) 0.6 k/uL (1.0-4.8); Lymphocytes % (A) 8 %; MCH 30.2 pg (25.0-35.0); MCHC 31.9 g/dL (31.0-37.0); MCV 94.7 fL (80.0-100.0); Mean Platelet Volume 7.1; Monocytes # (A) 0.3 k/uL (0-1.0); Monocytes % (A) 3 %; Neutrophils # (A) 7.2 k/uL (1.3-7.7); Neutrophils % (A) 88 %; Platelet Count 304 k/uL (150-450); RBC 3.03 m/uL (3.80-5.40); RDW 14.4 % (11.5-15.5); WBC 8.1 k/uL (3.8-10.6)
[2020-08-02 08:24] LABS: ALT 22 U/L (4-34); AST 23 U/L (14-36); African American GFR (CKD) >90 (>60 ml/min/1.73 sqM); Albumin 3.2 g/dL (3.5-5.0); Albumin/Globulin Ratio 1.3; Alkaline Phosphatase 52 U/L (38-126); Anion Gap 4 mmol/L; Blood Urea Nitrogen 19 mg/dL (7-17); Calcium 8.1 mg/dL (8.4-10.2); Carbon Dioxide 31 mmol/L (22-30); Chloride 103 mmol/L (98-107); Globulin 2.4 g/dL; Glucose 104 mg/dL (74-99); Non-African American GFR(CKD) >90 (>60 ml/min/1.73 sqM); Potassium 4.2 mmol/L (3.5-5.1); Sodium 138 mmol/L (137-145); Total Bilirubin 0.3 mg/dL (0.2-1.3); Total Protein 5.6 g/dL (6.3-8.2); Uric Acid 2.5 mg/dL (3.7-7.4)
[2020-08-02] MEDS: ENOXAPARIN 40 MG/0.4 ML SYRINGE SQ SCH (08:34)
[2020-08-02] MEDS: predniSONE 20 MG TAB PO SCH ×2 (08:38→20:46)
[2020-08-02] MEDS: PANTOPRAZOLE 40 MG TABLET PO SCH ×2 (08:38→17:08)
[2020-08-02] MEDS: NICOTINE 21MG/24HR PATCH TRANSDERM SCH (08:38)
[2020-08-02] MEDS: DULoxetine HCL 30 MG CAPSULE.DR PO SCH (08:42)
[2020-08-02] MEDS: busPIRone HCl 10 MG TAB PO SCH ×2 (08:42→21:13)
[2020-08-02] MEDS: lisinopriL 10 MG TAB PO SCH (08:43)
[2020-08-02] MEDS: predniSONE 50 MG TAB PO SCH ×2 (08:43→21:13)
[2020-08-02] MEDS: SENNOSIDES 8.6 MG TAB PO SCH (08:43)
--- NOTE | 2020-08-02 10:34 | P.PN ---
Subjective Progress Note Date: 08/02/20 Principal diagnosis: Diffuse large B-cell lymphoma, admitted for continuous IV infusion chemotherapy In follow-up today patient feels that the malignant mass on/around her chin is smaller, there is less discomfort. She complains of dry mouth. She denies fevers, nausea, vomiting, chest pain, shortness of breath, palpitations, abdominal pain or cramping, indigestion or heartburn, acute changes in bowel or bladder habits, bleeding, rash or other pain. She is ambulatory in the room and to the restroom Objective - Vital Signs Vital signs: Vital Signs Temp 97.8 F 08/02/20 08:00 Pulse 84 08/02/20 08:00 Resp 17 08/02/20 08:00 BP 146/85 08/02/20 08:00 Pulse Ox 95 08/02/20 08:00 Intake & Output 08/01/20 08/02/20 08/02/20 18:59 06:59 18:59 Intake Total 1258 1770 Balance 1258 1770 Intake: Intake, IV Titration 1258 1290 Amount Etoposide 74 mg 258 240 DOXOrubicin HCL 15 mg vinCRIStine SULFATE 0.6 mg In Sodium Chloride 0.9 % 500 ml 500 ml @ 21.325 mls/hr IV Q24H [facility] Rx#: [id number] Ondansetron 16 mg In 50 Sodium Chloride 0.9% 50 ml @ 232 mls/hr IVPB Q24H [facility] Rx#:[id number] Piperacillin-Tazobactam 3 100 100 .375 gm In Sodium Chloride 0.9% 100 ml @ 25 mls/hr IVPB Q8HR [facility] Rx# :[id number] Sodium Chloride 0.9% 1, 900 900 000 ml @ 75 mls/hr IV . [id number] [facility] Rx#:[id number] Oral 480 Other: Voiding Method Toilet Toilet # Voids 2 # Bowel Movements 0 - Constitutional General appearance: Present: average body habitus, cooperative, no acute distress - EENT EENT Comment(s): Large ulcerated mass on the chin, the surrounding tissue may be slightly softer, it is red, followed her, no significant amounts of drainage Eyes: Present: anicteric sclerae, EOMI ENT: Present: hearing grossly normal, normal oropharynx - Respiratory Respiratory: bilateral: CTA - Cardiovascular Rhythm: regular Heart sounds: normal: S1, S2 Abnormal Heart Sounds: Absent: systolic murmur, diastolic murmur, rub, S3 Gallop, S4 Gallop, click, other - Peripheral edema leg Peripheral Edema: bilateral: None - Gastrointestinal General gastrointestinal: Present: normal bowel sounds, soft - Neurologic Neurologic: Present: CNII-XII intact - Musculoskeletal Musculoskeletal: Present: strength equal bilaterally - Psychiatric Psychiatric: Present: A&O x's 3, appropriate affect, intact judgment & insight - Labs CBC & Chem 7: 08/02/20 07:50 08/02/20 07:50 Labs: Abnormal Lab Results - Last 24 Hours (Table) 08/02/20 08/02/20 Range/Units 07:50 07:50 RBC 3.03 L (3.80-5.40) m/uL Hgb 9.2 L (11.4-16.0) gm/dL Hct 28.7 L (34.0-46.0) % Lymphocytes # 0.6 L (1.0-4.8) k/uL Carbon Dioxide 31 H (22-30) mmol/L BUN 19 H (7-17) mg/dL Glucose 104 H (74-99) mg/dL Uric Acid 2.5 L (3.7-7.4) mg/dL Calcium 8.1 L (8.4-10.2) mg/dL Total Protein 5.6 L (6.3-8.2) g/dL Albumin 3.2 L (3.5-5.0) g/dL Microbiology - Last 24 Hours (Table) 07/30/20 18:10 Blood Culture - Preliminary Blood No Growth after 48 hours 07/30/20 15:53 Gram Stain - Final Mandible - Right Wound Culture - Final Klebsiella pneumoniae Proteus mirabilis Assessment and Plan (1) Non-Hodgkin lymphoma Current Visit: Yes Status: Acute Priority: High Code(s): C85.90 - NON- HODGKIN LYMPHOMA, UNSPECIFIED, UNSPECIFIED SITE SNOMED Code(s): 073203658 (2) Facial mass Current Visit: Yes Status: Acute Priority: High Code(s): R22.0 - LOCALIZED SWELLING, MASS AND LUMP, HEAD SNOMED Code(s): 174751572 Plan: Patient is doing well so far with chemotherapy. No significant side effects reported. She may also be experiencing some relief in the lymphoma mass on the chin. Continue chemotherapy without adjustment Continue supportive medications, add salt and soda for oral care. Encouraged the use of sugarfree hard candy for dry mouth. GI and DVT prophylaxis. Add PT/OT to prevent prolonged hospitalization weakness. Appointment for G-CSF outpatient and discharge plan. Plans to complete iron infusions outpatient. Doctor attests: I performed a history and physical examination of this patient, developed impression and plan of care. Discussed with dictator. I agree with dictators note, documented as a scribe.
[2020-08-02] MEDS: AMPICILLIN-SULBACTAM 3 GM in SODIUM CHLORIDE 0.9% 100 ML IVPB SCH ×3 (11:06→23:54)
[2020-08-02] MEDS: SODIUM CHLORIDE 0.9% 1,000 ML IV SCH ×2 (11:06→20:47)
[2020-08-02] MEDS: SALT AND SODA MOUTHWASH 1,000 ML PO SCH ×4 (11:36→23:54)
--- NOTE | 2020-08-02 16:11 | PN ---
PROGRESS NOTE DATE OF SERVICE: 08/02/2020 This 65-year-old woman who was admitted with infected malignant ulcer on the right mandible is being closely monitored. The culture showed Klebsiella pneumoniae and as well as Proteus mirabilis. Infectious Disease is following the patient closely. The patient is receiving chemotherapy and as well as the patient on broad spectrum IV antibiotics including Unasyn also. PAST MEDICAL HISTORY: Reviewed. REVIEW OF SYSTEMS: ENT: As mentioned earlier. CARDIOVASCULAR SYSTEM: No angina. RESPIRATORY SYSTEM: As mentioned earlier. GI: As mentioned earlier. : No dysuria. NERVOUS SYSTEM: No numbness or weakness. CURRENT MEDICATIONS: Gerber, Ventolin, Unasyn, Flexeril, chemotherapy. Doses are reviewed. PHYSICAL EXAMINATION: The patient is alert and oriented x3. Pulse 84, blood pressure 159/91, respirations 17, temperature 98.4, pulse ox 983% on room air. HEENT: Conjunctivae normal. NECK: No jugular venous distention. CARDIOVASCULAR: S1, S2 muffled. RESPIRATORY: Breath sounds diminished at the bases. A few scattered rhonchi. ABDOMEN: Soft, nontender. LEGS: No edema. No swelling. NERVOUS SYSTEM: No focal deficits. Examination of the jaw significant malignant ulceration with infection present. LABS: Hemoglobin 9.2, white count 8.1. Cultures noted. Uric acid is 2.5. ASSESSMENT: 1. Right jaw malignant ulcer right mandible with possible infection with cellulitis. Culture is growing Klebsiella pneumoniae and as well as Proteus mirabilis. 2. B-cell lymphoma on chemotherapy, R-EPOCH. 3. Chronic obstructive pulmonary disease. 4. Hypothyroidism. 5. Increased WBC. 6. Anemia secondary to malignancy. 7. Elevated random glucose. 8. History of asthma. 9. History of gastroesophageal reflux disease. 10.History of degenerative joint disease. 11.History of hysterectomy. 12.History of anxiety, depression. RECOMMENDATIONS AND DISCUSSION: This 65-year-old woman presented with multiple medical issues, we will monitor the patient closely. Continue the antibiotics. Continue with symptomatic treatment. Continue DVT prophylaxis. Continue with chemotherapy per Oncology. Guarded prognosis because of multiple complex medical issues. Further recommendations to follow. MMODL / IJN: [id number] /
[2020-08-02] MEDS: VINCRISTINE SULFATE IV SCH (19:05)
[2020-08-02] MEDS: DOXORUBICIN HCL IV SCH (19:05)
[2020-08-02] MEDS: [UNRECOGNIZED DRUG - OTHER] IV SCH (19:05)
[2020-08-02] MEDS: ETOPOSIDE IV SCH (19:05)
[2020-08-02] MEDS: FAMOTIDINE 20 MG/2 ML VIAL IV SCH (19:06)
[2020-08-02] MEDS: ONDANSETRON 16 MG in SODIUM CHLORIDE 0.9% 50 ML IVPB SCH (19:06)
[2020-08-02] MEDS: CYCLOBENZAPRINE 10 MG TAB PO PRN (23:58)
[2020-08-03] MEDS: HYDROcodone/APAP 7.5-325MG 1 EACH TAB PO PRN ×5 (00:54→19:54)
[2020-08-03] MEDS: AMPICILLIN-SULBACTAM 3 GM in SODIUM CHLORIDE 0.9% 100 ML IVPB SCH ×4 (05:40→22:55)
[2020-08-03] MEDS: SALT AND SODA MOUTHWASH 1,000 ML PO SCH ×4 (05:40→19:20)
[2020-08-03] MEDS: predniSONE 20 MG TAB PO SCH ×2 (08:21→19:18)
[2020-08-03] MEDS: ENOXAPARIN 40 MG/0.4 ML SYRINGE SQ SCH (08:21)
[2020-08-03] MEDS: SENNOSIDES 8.6 MG TAB PO SCH (08:21)
[2020-08-03] MEDS: NICOTINE 21MG/24HR PATCH TRANSDERM SCH (08:22)
[2020-08-03] MEDS: lisinopriL 10 MG TAB PO SCH ×2 (08:22→19:19)
[2020-08-03] MEDS: busPIRone HCl 10 MG TAB PO SCH ×2 (08:22→19:19)
[2020-08-03] MEDS: DULoxetine HCL 30 MG CAPSULE.DR PO SCH (08:22)
[2020-08-03] MEDS: PANTOPRAZOLE 40 MG TABLET PO SCH ×2 (08:22→16:38)
[2020-08-03] MEDS: predniSONE 50 MG TAB PO SCH ×2 (08:22→19:19)
--- NOTE | 2020-08-03 10:54 | P.PN ---
Subjective Progress Note Date: 08/03/20 Principal diagnosis: Diffuse large B-cell lymphoma, admitted for continuous IV infusion chemotherapy In follow-up today pt doing good, she has no toxicities or SE r/t to chemo to report so far. She thinks the chin lesion is starting to scab over, less pain in the area. She denies fevers, nausea, vomiting, chest pain, shortness of breath, palpitations, abdominal pain or cramping, indigestion or heartburn, acute changes in bowel or bladder habits, bleeding, rash or other pain. She is ambulatory in the room and to the restroom Objective - Vital Signs Vital signs: Vital Signs Temp 98.1 F 08/03/20 08:00 Pulse 84 08/03/20 08:00 Resp 17 08/03/20 08:00 BP 159/92 08/03/20 08:00 Pulse Ox 95 08/03/20 08:00 Intake & Output 08/02/20 08/03/20 08/03/20 18:59 06:59 18:59 Intake Total 480 2030 Balance 480 2030 Intake: Intake, IV Titration 1390 Amount Ampicillin-Sulbactam 3 gm 200 In Sodium Chloride 0.9% 100 ml @ 200 mls/hr IVPB Q6HR [facility] Rx#:[id number] Etoposide 74 mg 240 DOXOrubicin HCL 15 mg vinCRIStine SULFATE 0.6 mg In Sodium Chloride 0.9 % 500 ml 500 ml @ 21.325 mls/hr IV Q24H [facility] Rx#: [id number] Ondansetron 16 mg In 50 Sodium Chloride 0.9% 50 ml @ 232 mls/hr IVPB Q24H [facility] Rx#:[id number] Sodium Chloride 0.9% 1, 900 000 ml @ 75 mls/hr IV . [id number] [facility] Rx#:[id number] Oral 480 640 Other: Voiding Method Toilet Toilet # Voids 3 2 # Bowel Movements 0 - Constitutional General appearance: Present: average body habitus, cooperative, no acute distress - EENT EENT Comment(s): dry mucus membranes, no thrush or ulcers Eyes: Present: abnormal pupil, edentulous ENT: Present: hearing grossly normal - Respiratory Respiratory: bilateral: CTA - Cardiovascular Rhythm: regular Heart sounds: normal: S1, S2 Abnormal Heart Sounds: Absent: systolic murmur, diastolic murmur, rub, S3 Gallop, S4 Gallop, click, other - Peripheral edema leg Peripheral Edema: bilateral: None - Gastrointestinal General gastrointestinal: Present: normal bowel sounds, soft - Integumentary Integumentary Comment(s): mandible malignant lesion looks less red and swollen today, the ulceration is drying up and scabbing over - Neurologic Neurologic: Present: CNII-XII intact - Musculoskeletal Musculoskeletal: Present: strength equal bilaterally - Psychiatric Psychiatric: Present: A&O x's 3, appropriate affect, intact judgment & insight - Labs CBC & Chem 7: 08/02/20 07:50 08/02/20 07:50 Labs: Microbiology - Last 24 Hours (Table) 07/30/20 15:53 Anaerobic Culture - Final Mandible - Right Anaerobic Gm Negative Bacilli 07/30/20 18:10 Blood Culture - Preliminary Blood No Growth after 72 hours Assessment and Plan (1) Non-Hodgkin lymphoma Current Visit: Yes Status: Acute Priority: High Code(s): C85.90 - NON- HODGKIN LYMPHOMA, UNSPECIFIED, UNSPECIFIED SITE SNOMED Code(s): 550779273 (2) Facial mass Current Visit: Yes Status: Acute Priority: High Code(s): R22.0 - LOCALIZED SWELLING, MASS AND LUMP, HEAD SNOMED Code(s): 817757655 Plan: Patient cont to well with chemotherapy. No significant side effects/toxicities reported. She is experiencing some relief in the lymphoma mass on the chin. Continue chemotherapy without adjustment Continue supportive medications. Encouraged the use of sugarfree hard candy for dry mouth. GI and DVT prophylaxis. Add PT/OT to prevent prolonged hospitalization weakness. Appointment for G-CSF outpatient and discharge plan. Plans to complete iron infusions outpatient. For malignant ulceration on mandible- ID for abx recommendations. Wound care consulted-MD wants wet to dry dressings. Case Mgmt for discharge wound care Doctor attests: I performed a history and physical examination of this patient, developed impression and plan of care. Discussed with dictator. I agree with dictators note, documented as a scribe.
--- NOTE | 2020-08-03 11:58 | P.CONS ---
History of Present Illness - Reason for Consult Consult date: 08/03/20 wound care - History of Present Illness This is a 65-year-old pleasant female with history of the mandible mass seen by the wound care center on 5 [address]. for an open ulceration. The mass is still intact to the ulceration. There is a opening area noted superior to the ulceration with Slough and no granulation seen within the wound bed. The patient states that she was told by oncology not to place any dressings over the ulceration. She is continuing on chemotherapy at this time. Patient states that there is no drainage to the site. Review Of Systems: Constitutional: No fever, no chills, no night sweats. No weight change. No weakness, fatigue or lethargy. No daytime sleepiness. Integumentary:reports wounds, no lesions. No rash or pruritus. No unusual bruising. No change in hair or nails. Physical exam: General Appearance: Alert, cooperative, no distress, appears stated age. Skin: See HPI all other Skin color, texture, tugor normal, no rashes or lesions. Neurologic: Alert oriented x3 Assessment: 1. Nonhealing ulceration to the face with fatty layer exposure. 2. Facial mass 3. Non-Hodgkin's lymphoma Plan: 1. Apply dry gauze to the site and secure with either a mask or stockinette. If increased drainage occurs to the site may apply absorptive silver dry. Change Sunday, , and Sunday. Once the mass is removed we will be happy to see the patient in the wound care center to assist with closure of the ulceration. Thank you for the consultation any questions contact wound care center DNP note has been reviewed and discussed with Dr. Guzman and the impression and plan of care has been directed as dictated. Past Medical History Past Medical History: Asthma, Cancer, COPD, GERD/Reflux, Osteoarthritis (OA), Thyroid Disorder Additional Past Medical History / Comment(s): 06/17/20 submandible mass/+ high grade lymphoma, benign brain tumor surgically removed, 2 benign abdominal tumors removed, chronic back and bilateral knee pain and pt states past 2 weeks has had L leg pain/difficulty walking, constipation, migraines, hypothyroid History of Any Multi-Drug Resistant Organisms: None Reported Past Surgical History: Hysterectomy, Joint Replacement Additional Past Surgical History / Comment(s): Total Left knee. Exc brain tumor 2018. Exc 2 abd tumors. Submental mass biopsy. Past Anesthesia/Blood Transfusion Reactions: No Reported Reaction Smoking Status: Former smoker - Past Family History Mother Family Medical History: Cancer Additional Family Medical History / Comment(s): Brain cancer Father Family Medical History: Cancer Additional Family Medical History / Comment(s): Bone cancer Medications and Allergies Home Medications Medication Instructions Recorded Confirmed Type Albuterol Sulfate [Proventil Hfa] 2 puff INHALATION RT-QID PRN 06/17/20 07/30/20 History DULoxetine HCL [Cymbalta] 30 mg PO DAILY 06/17/20 07/30/20 History Ibuprofen [Motrin] 400 mg PO Q8H PRN 06/17/20 07/30/20 History busPIRone HCl [Buspar] 10 mg PO BID 06/17/20 07/30/20 History Cyclobenzaprine [Flexeril] 10 mg PO HS PRN 07/30/20 07/30/20 History Gabapentin 600 mg PO TID PRN 07/30/20 07/30/20 History HYDROcodone/APAP 5-325MG [Irving 1 tab PO Q6H PRN 07/30/20 07/30/20 History 5-325] lisinopriL [Zestril] 10 mg PO DAILY 07/30/20 07/30/20 History Allergies Allergy/AdvReac Type Severity Reaction Status Date / Time No Known Allergies Allergy Verified 07/30/20 12:54 Physical Exam Vitals: Vital Signs Temp Pulse Resp BP Pulse Ox 08/03/20 08:00 98.1 F 84 17 159/92 95 08/03/20 04:25 98.1 F 76 20 162/97 98 08/03/20 00:45 98.2 F 76 20 145/80 92 L 08/02/20 19:40 98.3 F 87 20 171/84 93 L 08/02/20 16:00 85 17 153/86 92 L 08/02/20 12:00 98.4 F 84 17 159/91 93 L Intake and Output 08/02/20 08/03/20 08/03/20 22:59 06:59 14:59 Intake Total 600 1910 Balance 600 1910 Intake: Intake, IV Titration 1390 Amount Ampicillin-Sulbactam 3 gm 200 In Sodium Chloride 0.9% 100 ml @ 200 mls/hr IVPB Q6HR [facility] Rx#:[id number] Etoposide 74 mg 240 DOXOrubicin HCL 15 mg vinCRIStine SULFATE 0.6 mg In Sodium Chloride 0.9 % 500 ml 500 ml @ 21.325 mls/hr IV Q24H [facility] Rx#: [id number] Ondansetron 16 mg In 50 Sodium Chloride 0.9% 50 ml @ 232 mls/hr IVPB Q24H [facility] Rx#:[id number] Sodium Chloride 0.9% 1, 900 000 ml @ 75 mls/hr IV . [id number] [facility] Rx#:[id number] Oral 600 520 Other: Voiding Method Toilet # Voids 1 2 # Bowel Movements 0 Results CBC & Chem 7: 08/02/20 07:50 08/02/20 07:50 Labs: Microbiology - Last 24 Hours (Table) 07/30/20 15:53 Anaerobic Culture - Final Mandible - Right Anaerobic Gm Negative Bacilli 07/30/20 18:10 Blood Culture - Preliminary Blood No Growth after 72 hours Assessment and Plan (1) Non-pressure chronic ulcer of skin of other sites with fat layer exposed Current Visit: Yes Status: Acute Code(s): L98.492 - NON-PRS CHRONIC ULCER OF SKIN OF SITES W FAT LAYER EXPOSED SNOMED Code(s): 75938657 (2) Facial mass Current Visit: Yes Status: Acute Priority: High Code(s): R22.0 - LOCALIZED SWELLING, MASS AND LUMP, HEAD SNOMED Code(s): 137413209 (3) Non-Hodgkin lymphoma Current Visit: Yes Status: Acute Priority: High Code(s): C85.90 - NON- HODGKIN LYMPHOMA, UNSPECIFIED, UNSPECIFIED SITE SNOMED Code(s): 784688520
--- NOTE | 2020-08-03 14:01 | PN ---
PROGRESS NOTE DATE OF SERVICE: 08/03/2020 REASON FOR FOLLOWUP: Jaw necrotic wound and concern for secondary cellulitis. INTERVAL HISTORY: The patient is currently afebrile. Denies any worsening pain to the jaw area. No chest pain, shortness of breath or cough. No abdominal pain or diarrhea. PHYSICAL EXAMINATION: Blood pressure 168/97, pulse of 87, temperature 98, she is 95% on room air. General description is an elderly female up in the in no distress. Respiratory system: Unlabored breathing, clear to auscultation. HEART: S1, S2. Regular rate and rhythm. ABDOMEN: Soft, no tenderness. LABS: Hemoglobin 9.1, white count 8.1. BUN of 19, creatinine 0.57. Local culture with anaerobes, Klebsiella and Proteus mirabilis. DIAGNOSTIC IMPRESSION AND PLAN: Patient with necrotic jaw wound from large B-cell lymphoma with possible concerns for secondary cellulitis. Cultures with multiple pathogens. Covered with Unasyn to finish therapy with oral Augmentin. Continue supportive care. MMODL / IJN: [id number] /
--- NOTE | 2020-08-03 15:41 | PN ---
PROGRESS NOTE DATE OF SERVICE: 08/03/2020 This 65-year-old woman who was admitted with B-cell lymphoma, on chemotherapy, had a significant lesion of the right jaw. The patient has also had possible cellulitis. The patient is on empiric antibiotics, also. Wound Care has recommended a conservative line of management. No chest pain. No palpitations. No fever. PHYSICAL EXAMINATION: Alert and oriented x3. Pulse 87, blood pressure 168/97, respirations 16, temperature 98 degrees, pulse ox 94% on room air. HEENT: Conjunctivae normal. NECK: No jugular venous distention. CARDIOVASCULAR SYSTEM: S1, S2 muffled. RESPIRATORY SYSTEM: Breath sounds diminished at the bases. No rhonchi. No crackles. ABDOMEN: Soft, non-tender. LEGS: No edema. No swelling. NERVOUS SYSTEM: No focal deficit. EXAMINATION OF THE FACE: Significant ulceration and infection and cellulitis present. LABS: WBC 8.1, hemoglobin 9.2. Sodium 138, potassium 3.2. ASSESSMENT: 1. 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 Culture showing Klebsiella pneumoniae as well as Proteus mirabilis. 2. B-cell lymphoma, on chemotherapy R-EPOCH. 3. Chronic obstructive pulmonary disease. 4. Hypothyroidism. 5. Increased white count. 6. Anemia secondary to malignancy. 7. Elevated random glucose. 8. History of asthma. 9. History of gastroesophageal reflux disease. 10.History of degenerative joint disease. 11.History of hysterectomy. 12.History of anxiety, depression. RECOMMENDATIONS AND DISCUSSION: I recommend to continue current medications, continue with the monitoring, symptomatic treatment. Otherwise at this time I recommend continuing with the antibiotics, continue symptomatic treatment. Closely follow. Wound care. Further recommendations to follow. MMODL / IJN: [id number] / MTDD
[2020-08-03] MEDS: SODIUM CHLORIDE 0.9% 1,000 ML IV SCH (16:41)
[2020-08-03] MEDS: SENNOSIDES-DOCUSATE SODIUM 1 EACH TAB PO SCH (19:18)
[2020-08-03] MEDS: FAMOTIDINE 20 MG/2 ML VIAL IV SCH (19:19)
[2020-08-03] MEDS: ONDANSETRON 16 MG in SODIUM CHLORIDE 0.9% 50 ML IVPB SCH (19:20)
[2020-08-03] MEDS ORDERED: SODIUM CHLORIDE 0.9% IV ONE (21:00)
[2020-08-03] MEDS ORDERED: CYCLOPHOSPHAMIDE IV ONE (21:00)
[2020-08-04] MEDS: SALT AND SODA MOUTHWASH 1,000 ML PO SCH ×3 (02:12→11:17)
[2020-08-04] MEDS: AMPICILLIN-SULBACTAM 3 GM in SODIUM CHLORIDE 0.9% 100 ML IVPB SCH ×2 (05:01→13:44)
[2020-08-04] MEDS: ENOXAPARIN 40 MG/0.4 ML SYRINGE SQ SCH (08:56)
[2020-08-04] MEDS: SENNOSIDES-DOCUSATE SODIUM 1 EACH TAB PO SCH (08:57)
[2020-08-04] MEDS: lisinopriL 10 MG TAB PO SCH (08:57)
[2020-08-04] MEDS: PANTOPRAZOLE 40 MG TABLET PO SCH (08:57)
[2020-08-04] MEDS: DULoxetine HCL 30 MG CAPSULE.DR PO SCH (08:57)
[2020-08-04] MEDS: busPIRone HCl 10 MG TAB PO SCH (08:57)
[2020-08-04] MEDS: NICOTINE 21MG/24HR PATCH TRANSDERM SCH (08:57)
[2020-08-04 09:00] VITALS: RESP 16
[2020-08-04] MEDS ORDERED: hydrALAZINE HCL 20 MG/ML 1 ML VIAL IVP PRN (09:21)
[2020-08-04] MEDS ORDERED: amLODIPine 10 MG TAB PO SCH (09:30)
[2020-08-04 09:32] LABS: Basophils % (A) 0 %; Eosinophils % (A) 0 %; HCT 28.2 % (34.0-46.0); Lymphocytes # (A) 0.4 k/uL (1.0-4.8); Lymphocytes % (A) 9 %; MCH 29.8 pg (25.0-35.0); MCHC 32.1 g/dL (31.0-37.0); MCV 92.7 fL (80.0-100.0); Mean Platelet Volume 7.1; Monocytes # (A) 0.1 k/uL (0-1.0); Monocytes % (A) 1 %; Neutrophils # (A) 4.1 k/uL (1.3-7.7); Neutrophils % (A) 90 %; Platelet Count 279 k/uL (150-450); RBC 3.04 m/uL (3.80-5.40); RDW 14.1 % (11.5-15.5); WBC 4.6 k/uL (3.8-10.6)
--- NOTE | 2020-08-04 10:45 | P.DS ---
Providers Date of admission: 07/30/20 09:14 Expected date of discharge: 08/04/20 Attending physician: Michael Sehn Consults: 07/30/20 13:51 Consult Physician Routine Consulting Provider: Hollis Chong Consult Reason/Comments: Medical management Do you want consulting provider notified?: Yes 07/30/20 16:06 Consult Physician Routine Consulting Provider: Jessie Morrison Consult Reason/Comments: Infection of the malignant ulcer Do you want consulting provider notified?: Yes Primary care physician: Michael Shen - Discharge Diagnosis(es) (1) Non-Hodgkin lymphoma Current Visit: Yes Status: Acute Priority: High (2) Facial mass Current Visit: Yes Status: Acute Priority: High Hospital Course: Admitted for first cycle of REPOCH for diffuse large B-cell lymphoma, significant mass on the mandible. Patient did not report chemo side effects, physically tolerated treatment well, able to sustain adequate nurtition and hydration. No severe hematological toxicities as of today. BP elevated, adjustments in blood pressure medications made. G-CSF and iron infusions plan for outpatient. Seen in the office tomorrow. Overall, tolerated treatment well with improvements in the mass on the mandible. Assessment: Well-developed, adequately nourished, no acute distress, alert and oriented 3, bilateral breath sounds clear to auscultation, respiratory effort is unlabored, S1, S2, no murmur, gallop or rub. No abdominal pain or distention, bowel sounds are positive. No swelling of the lower extremities. Lymphoma mass on the mandible is continuing to improve, less redness, swelling, and secretions are drying up. Health Concerns: Concerns about transportation. Patient states that she has a ride for tomorrow. We will follow this closely with her. Wound care/home care for mandible lesion from lymphoma. Blood pressure medications adjusted, continued monitoring. PCP for further adjustments. Patient's chronic back pain will not be managed by Oncology. Us was clarified with the patient, she verbalized understanding. Procedures: PICC line placement Patient Condition at Discharge: Stable Plan - Discharge Summary Discharge Rx Participant: No New Discharge Prescriptions: New lisinopriL [Zestril] 10 mg PO BID #60 tab amLODIPine [Norvasc] 10 mg PO DAILY #30 tab Discontinued lisinopriL [Zestril] 10 mg PO DAILY No Action Albuterol Sulfate [Proventil Hfa] 2 puff INHALATION RT-QID PRN PRN Reason: Shortness Of Breath DULoxetine HCL [Cymbalta] 30 mg PO DAILY Cyclobenzaprine [Flexeril] 10 mg PO HS PRN PRN Reason: Muscle Spasm Ibuprofen [Motrin] 400 mg PO Q8H PRN PRN Reason: Pain busPIRone HCl [Buspar] 10 mg PO BID HYDROcodone/APAP 5-325MG [[place] 5-325] 1 tab PO Q6H PRN PRN Reason: Pain Gabapentin 600 mg PO TID PRN PRN Reason: Pain Discharge Medication List Albuterol Sulfate [Proventil Hfa] 2 puff INHALATION RT-QID PRN 06/17/20 [History] DULoxetine HCL [Cymbalta] 30 mg PO DAILY 06/17/20 [History] Ibuprofen [Motrin] 400 mg PO Q8H PRN 06/17/20 [History] busPIRone HCl [Buspar] 10 mg PO BID 06/17/20 [History] Cyclobenzaprine [Flexeril] 10 mg PO HS PRN 07/30/20 [History] Gabapentin 600 mg PO TID PRN 07/30/20 [History] HYDROcodone/APAP 5-325MG [[place] 5-325] 1 tab PO Q6H PRN 07/30/20 [History] amLODIPine [Norvasc] 10 mg PO DAILY #30 tab 08/04/20 [Rx] lisinopriL [Zestril] 10 mg PO BID #60 tab 08/04/20 [Rx] Follow up Appointment(s)/Referral(s): [facility], [NON-STAFF] - 1 Week Mihcael Shen MD [Primary Care Provider] - 08/05/20 1:00 pm Activity/Diet/Wound Care/Special Instructions: Activity as tolerated Diet as tolerated Reviewed with patient importance of liberal fluid intake Continue strict oral care, cont salt and soda Discharge Disposition: HOME WITH HOME HEALTH SERVICES Pending Studies Pending Results: No pending results
[2020-08-04] MEDS: HYDROcodone/APAP 7.5-325MG 1 EACH TAB PO PRN (11:18)
[2020-08-04 12:32] VITALS: BP 152/84; PULSE 94; TEMP 97.9
[2020-08-04] MEDS ORDERED: COLLAGENASE 250 UNIT/GM OINTMENT 30 GM TUBE TOPICAL SCH (15:30)
--- NOTE | 2020-08-04 16:19 | P.PN ---
Progress Note - Text Progress Note Date: 08/04/20 REASON FOR FOLLOWUP: Jaw necrotic wound and concern for secondary cellulitis. INTERVAL HISTORY: The patient remains to be afebrile. The patient denies any worsening pain to the jaw area. No chest pain, shortness of breath or cough. No abdominal pain or diarrhea. PHYSICAL EXAMINATION: Blood pressure 132/84, pulse of 94 , temperature 98, she is 95% on room air. General description is an elderly female up in the in no distress. Jaw wound with some slough tissue surrounding swelling redness is decreased Respiratory system: Unlabored breathing, clear to auscultation. HEART: S1, S2. Regular rate and rhythm. ABDOMEN: Soft, no tenderness. LABS:Local culture with anaerobes, Klebsiella and Proteus mirabilis. DIAGNOSTIC IMPRESSION AND PLAN: Patient with necrotic jaw wound from large B-cell lymphoma with possible concerns for secondary cellulitis. Cultures with multiple pathogens. Covered with Unasyn to finish therapy with oral Augmentin. Local wound care with Santyl followed by moist dressing.
--- NOTE | 2020-08-04 19:31 | PN ---
PROGRESS NOTE DATE OF SERVICE: 08/04/2020 This 65-year-old woman who was admitted with a right jaw malignant ulcer is being closely monitored. No chest pain. No palpitations. Patient has finished her first course of chemotherapy at this time. No chest pain. No palpitations. Blood pressure is also elevated. PHYSICAL EXAMINATION: Alert and oriented x3. Pulse 94, blood pressure 174/93, respirations 16, temperature 98.2, pulse ox 94% on room air. HEENT: Conjunctivae normal. NECK: No jugular venous distention. CARDIOVASCULAR SYSTEM: S1, S2 muffled. RESPIRATORY SYSTEM: Breath sounds diminished at the bases. No rhonchi. No crackles. ABDOMEN: Soft. NERVOUS SYSTEM: No focal deficit. EXAMINATION OF THE JAW: Malignant ulcer present. LABS: WBC 4.6, hemoglobin is 9. ASSESSMENT: 1. 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 Culture showing Klebsiella pneumoniae as well as Proteus mirabilis. 2. B-cell lymphoma, on chemotherapy R-EPOCH. 3. Chronic obstructive pulmonary disease. 4. Hypothyroidism. 5. Increased white count. 6. Anemia secondary to malignancy. 7. Elevated random glucose. 8. History of asthma, chronic, intermittent. 9. History of gastroesophageal reflux disease. 10.History of degenerative joint disease. 11.History of hysterectomy. 12.History of anxiety, depression. RECOMMENDATIONS AND DISCUSSION: I recommend to continue current medications, continue with the monitoring, symptomatic treatment. Recommend adding Norvasc to the current regimen. Increase the dose of enalapril. Closely follow with the primary physician. Rest of the recommendations per Hematology/Oncology. Further recommendations to follow. MMODL / IJN: [id number] /
== END 2020-08-04 15:39 | disposition home health service (06) | DRG 847 ==
LOC: 5NMEDONC 07-30 09:14
PROVIDERS: ADMIT Internal Medicine Hematology & Oncology; ATTEND Internal Medicine Hematology & Oncology
PROC: 3E0430M Introduction of Antineoplastic, Monoclonal Antibody, into Central Vein, Percutaneous Approach (ICD-10-PCS; 2020-07-30)
PROC: 02HV33Z Insertion of Infusion Device into Superior Vena Cava, Percutaneous Approach (ICD-10-PCS; principal; 2020-07-30 11:50)
DX: Z51.11 Encounter for antineoplastic chemotherapy (principal); C83.31 Diffuse large B-cell lymphoma, lymph nodes of head, face, and neck; D63.0 Anemia in neoplastic disease; D72.828 Other elevated white blood cell count; E03.9 Hypothyroidism, unspecified; G89.29 Other chronic pain; M54.9 Dorsalgia, unspecified; J44.9 Chronic obstructive pulmonary disease, unspecified; E66.9 Obesity, unspecified; L98.492 Non-pressure chronic ulcer of skin of other sites with fat layer exposed; T38.0X5A Adverse effect of glucocorticoids and synthetic analogues, initial encounter; Z79.899 Other long term (current) drug therapy; Z80.8 Family history of malignant neoplasm of other organs or systems; Z86.011 Personal history of benign neoplasm of the brain; Z87.891 Personal history of nicotine dependence; Z90.710 Acquired absence of both cervix and uterus; Z96.652 Presence of left artificial knee joint; Z68.27 Body mass index [BMI] 27.0-27.9, adult; Z98.890 Other specified postprocedural states
CPT/HCPCS: 36573; 80053; 82607; 82728; 82746; 83540; 83550; 83615; 83735; 83921; 84100; 84550; 85025; 85027; 85045; 85610; 87040; 87070; 87075; 87077; 87186; 87205; 94640

== ENCOUNTER 2020-09-14 09:20 | Inpatient (IN) | payer OTHER ==
[~2020-09-14 09:20] MED LIST changes: +ONDANSETRON 4 MG/2 ML VIAL IVP PRN; -diphenhydrAMINE 50 MG/ML 1 ML VIAL IVP ONE
[2020-09-14 11:39] LABS: ALT 11 U/L (4-34); AST 23 U/L (14-36); African American GFR (CKD) >90 (>60 ml/min/1.73 sqM); Albumin 4.6 g/dL (3.5-5.0); Albumin/Globulin Ratio 1.8; Alkaline Phosphatase 86 U/L (38-126); Anion Gap 13 mmol/L; Blood Urea Nitrogen 13 mg/dL (7-17); Calcium 9.8 mg/dL (8.4-10.2); Carbon Dioxide 25 mmol/L (22-30); Chloride 103 mmol/L (98-107); Globulin 2.6 g/dL; Glucose 106 mg/dL (74-99); Non-African American GFR(CKD) >90 (>60 ml/min/1.73 sqM); Potassium 4.2 mmol/L (3.5-5.1); Sodium 141 mmol/L (137-145); Total Bilirubin 0.5 mg/dL (0.2-1.3); Total Protein 7.2 g/dL (6.3-8.2); Uric Acid 4.6 mg/dL (3.7-7.4)
[2020-09-14 11:42] LABS: Basophils % (A) 0 %; Eosinophils # (A) 0.1 k/uL (0-0.7); Eosinophils % (A) 1 %; HGB 11.9 gm/dL (11.4-16.0); Hypochromasia Slight; Lymphocytes # (A) 0.8 k/uL (1.0-4.8); Lymphocytes % (A) 11 %; MCH 28.8 pg (25.0-35.0); MCHC 31.4 g/dL (31.0-37.0); MCV 91.8 fL (80.0-100.0); Mean Platelet Volume 6.4; Monocytes # (A) 0.4 k/uL (0-1.0); Monocytes % (A) 5 %; Neutrophils # (A) 6.4 k/uL (1.3-7.7); Neutrophils % (A) 82 %; Platelet Count 306 k/uL (150-450); RBC 4.13 m/uL (3.80-5.40); RDW 15.9 % (11.5-15.5); WBC 7.8 k/uL (3.8-10.6)
[2020-09-14] MEDS: SODIUM CHLORIDE 0.9% 1,000 ML IV SCH (12:41)
[2020-09-14] MEDS ORDERED: ACETAMINOPHEN TAB 500 MG TAB PO ONE (13:00)
[2020-09-14] MEDS ORDERED: methylPREDNISolone SOD SUCCI 125 MG/2 ML VIAL IV ONE (13:00)
[2020-09-14] MEDS ORDERED: diphenhydrAMINE 50 MG/ML 1 ML VIAL IVP ONE (13:00)
[2020-09-14] MEDS: predniSONE 50 MG TAB PO SCH ×2 (13:07→21:42)
[2020-09-14] MEDS: predniSONE 20 MG TAB PO SCH ×2 (13:07→21:42)
[2020-09-14] MEDS: FAMOTIDINE 20 MG/2 ML VIAL IV SCH (13:08)
[2020-09-14] MEDS ORDERED: SODIUM CHLORIDE 0.9% IV ONE (14:00)
[2020-09-14] MEDS ORDERED: RITUXIMAB PVVR IV ONE (14:00)
[2020-09-14] MEDS ORDERED: ALBUTEROL NEBULIZED 2.5 MG/3 ML INHALATION PRN (14:22)
[2020-09-14] MEDS ORDERED: ALBUTEROL HFA INHALER INHALATION PRN (14:22)
[2020-09-14] MEDS: ONDANSETRON 16 MG in SODIUM CHLORIDE 0.9% 50 ML IVPB SCH (14:31)
[2020-09-14] MEDS: NICOTINE 21MG/24HR PATCH TRANSDERM SCH (14:35)
[2020-09-14 14:51] LABS: Magnesium 1.9 mg/dL (1.6-2.3); Phosphorus 3.3 mg/dL (2.5-4.5)
[2020-09-14] MEDS: PANTOPRAZOLE 40 MG TABLET PO SCH (17:53)
[2020-09-14] MEDS: GABAPENTIN 300 MG CAP PO PRN (19:13)
[2020-09-14] MEDS: ETOPOSIDE IV SCH (19:18)
[2020-09-14] MEDS: [UNRECOGNIZED DRUG - OTHER] IV SCH (19:18)
[2020-09-14] MEDS: DOXORUBICIN HCL IV SCH (19:18)
[2020-09-14] MEDS: VINCRISTINE SULFATE IV SCH (19:18)
--- NOTE | 2020-09-14 19:54 | P.HPIM ---
History of Present Illness H&P Date: 09/14/20 Chief Complaint: Timed Chemo Ms Nicole is a pleasant white female, initially seen in consult at [facility] on 06/17/20. The patient had presented with a mass on her left chin area that has had about 3 months ago and had persistently grown since. This is causing progressive pain, as well as mild difficulty in speaking an opening her mouth. She is still able to swallow reasonably and denied any difficulty in breathing. CT scan of soft tissue neck showed a 5.8 x 3.7 x 6.3 cm submental component with treatment dialysis component measuring 5.3 x 2 x 2.3 cm. The patient had an ultrasound and biopsy on 06/18/20 and was subsequently discharged with pain control. Labs had shown hemoglobin of 9, WBC 4 and platelets 202. Biopsy came back positive for diffuse large B-cell lymphoma. Additional biomarker testing revealed BCL-2 gene rearrangement. There was evidence of partial BCL 6 and RENETTA deletion, but radiant rearrangement of either of these genes could not be ruled out. Therefore the possibility of double/triple hit lymphoma could not be excluded. Patient had a PET scan as an outpatient on 07/09/20. This showed the mandibular mass measuring 8.5 x 8.4 cm with SUV of 12.72. There were 2 hypermetabolic left parotid nodules, mildly hypermetabolic left neck nodes, and hypermetabolic left groin nodes largest measuring 3.8 x 2.8 cm. The patient rescheduled her PET scan, and then also her follow-up appointments. She was started on [place] as an outpatient. She was seen for her first office visit on 07/15/20. She has now been admitted for R-EPOCH cycle 2 Review of Systems All systems: negative Constitutional: Reports as per HPI Past Medical History Past Medical History: Asthma, Cancer, COPD, GERD/Reflux, Osteoarthritis (OA), T hyroid Disorder Additional Past Medical History / Comment(s): 06/17/20 submandible mass/+ diffuse large B Cell lymphoma with chemo/L chin wound, benign brain tumor surgically r emoved, 2 benign abdominal tumors removed, chronic back and bilateral knee pain, constipation, migraines, hypothyroid History of Any Multi-Drug Resistant Organisms: None Reported Past Surgical History: Hysterectomy, Joint Replacement Additional Past Surgical History / Comment(s): total Left knee, exc brain tumor 2018, exc 2 abd tumors, submental mass biopsy, PICC L arm. Past Anesthesia/Blood Transfusion Reactions: No Reported Reaction Past Psychological History: Anxiety, Depression Additional Psychological History / Comment(s): Pt resides alone. She has a caregiver from [facility] a few hours a day who helps with chores/her ambulate. She has a walker. She has a cane. She drives. She is receiving half-way care for wound care thru [facility]. She states she was to receive PT/OT after last discharge but this did not happen d/t per pt, "not right information being sent." Smoking Status: Former smoker Past Alcohol Use History: None Reported Additional Past Alcohol Use History / Comment(s): Pt started smoking in 1972 and quit june 2020 Past Drug Use History: None Reported - Past Family History Mother Family Medical History: Cancer Additional Family Medical History / Comment(s): Brain cancer Father Family Medical History: Cancer Additional Family Medical History / Comment(s): Bone cancer Medications and Allergies Home Medications Medication Instructions Recorded Confirmed Type Albuterol Sulfate [Proventil Hfa] 2 puff INHALATION RT-QID PRN 06/17/20 09/14/20 History busPIRone HCl [Buspar] 10 mg PO BID 06/17/20 09/14/20 History Cyclobenzaprine [Flexeril] 10 mg PO HS PRN 07/30/20 09/14/20 History Gabapentin 600 mg PO TID PRN 07/30/20 09/14/20 History Albuterol Nebulized [Ventolin 2.5 mg INHALATION RT-QID PRN 09/14/20 09/14/20 History Nebulized] Levothyroxine Sodium 125 mcg PO DAILY 09/14/20 09/14/20 History Nicotine 21Mg/24Hr Patch [Habitrol] 1 patch TRANSDERM DAILY 09/14/20 09/14/20 History Allergies Allergy/AdvReac Type Severity Reaction Status Date / Time No Known Allergies Allergy Verified 07/30/20 12:54 Physical Exam Vitals: Vital Signs Temp Pulse Resp BP Pulse Ox 09/14/20 11:15 98.0 F 98 16 118/80 96 09/14/20 09:26 97.5 F L 102 H 16 122/85 96 Intake and Output 09/13/20 09/14/20 09/14/20 22:59 06:59 14:59 Other: Voiding Method Toilet Weight 55.3 kg - Constitutional General appearance: Present: average body habitus, cooperative, no acute distress - EENT EENT Comment(s): dry mucus membranes, no thrush or ulcers Eyes: Present: abnormal pupil, edentulous ENT: Present: hearing grossly normal - Respiratory Respiratory: bilateral: CTA - Cardiovascular Rhythm: regular Heart sounds: normal: S1, S2 Abnormal Heart Sounds: Absent: systolic murmur, diastolic murmur, rub, S3 Gallop, S4 Gallop, click, other - Peripheral edema leg Peripheral Edema: bilateral: None - Gastrointestinal General gastrointestinal: Present: normal bowel sounds, soft - Integumentary Integumentary Comment(s): mandible malignant lesion looks less red and swollen today, the ulceration is drying up and scabbing over - Neurologic Neurologic: Present: CNII-XII intact - Musculoskeletal Musculoskeletal: Present: strength equal bilaterally - Psychiatric Psychiatric: Present: A&O x's 3, appropriate affect, intact judgment & insight Results CBC & Chem 7: 09/14/20 10:38 09/14/20 10:38 Labs: Abnormal Lab Results - Last 24 Hours (Table) 09/14/20 09/14/20 Range/Units 10:38 10:38 RDW 15.9 H (11.5-15.5) % Lymphocytes # 0.8 L (1.0-4.8) k/uL Glucose 106 H (74-99) mg/dL Thrombosis Risk Factor Assmnt - DVT/VTE Prophylaxis DVT/VTE Prophylaxis: Pharmacologic Prophylaxis ordered - Choose All That Apply Any of the Below Risk Factors Present?: Yes Other Risk Factors: Yes Each Risk Factor Represents 2 Points: Age 61-74 years, Malignancy Other congenital or acquired thrombophilia - If yes, enter type in comment: No Thrombosis Risk Factor Assessment Total Risk Factor Score: 4 Thrombosis Risk Factor Assessment Level: Moderate Risk Assessment and Plan (1) Facial mass Current Visit: No Status: Acute Priority: High Code(s): R22.0 - LOCALIZED SWELLING, MASS AND LUMP, HEAD SNOMED Code(s): 179866823 (2) Non-Hodgkin lymphoma Current Visit: No Status: Acute Priority: High Code(s): C85.90 - NON- HODGKIN LYMPHOMA, UNSPECIFIED, UNSPECIFIED SITE SNOMED Code(s): 912227563 Plan: PPI Home meds ordered Daily Labs VTE prophylaxis Neulasta planned after completion of chemo in office Additional Bowel support and antiemetic
--- NOTE | 2020-09-14 20:37 | XR ---
EXAMINATION TYPE: XR chest 1V portable DATE OF EXAM: 09/14/2020 COMPARISON: 04/10/2014 HISTORY: Check line placement TECHNIQUE: Single view FINDINGS: There is left-sided PICC line catheter with tip in the superior vena cava. Lungs are clear. Heart and mediastinum are normal. There is no pleural effusion. IMPRESSION: No active cardiopulmonary disease. Catheter in good position.
[2020-09-14] MEDS ORDERED: ALTEPLASE 2 MG VIAL (CATHFLO) IV STA ×2 (20:45→20:48)
[2020-09-14] MEDS: CYCLOBENZAPRINE 10 MG TAB PO PRN (21:12)
[2020-09-14] MEDS: busPIRone HCl 10 MG TAB PO SCH (21:41)
[2020-09-14] MEDS: OLANZapine 2.5 MG TAB PO SCH (21:42)
[2020-09-14] MEDS: SENNOSIDES-DOCUSATE SODIUM 1 EACH TAB PO SCH (21:42)
[2020-09-15] MEDS: SODIUM CHLORIDE 0.9% 1,000 ML IV SCH ×2 (01:40→12:59)
--- NOTE | 2020-09-15 05:06 | CONS ---
CONSULTATION DATE OF SERVICE: 09/14/2020 REASON FOR CONSULTATION: Advice regarding asthma, COPD and other multiple medical issues, requested by Hematology/Oncology. HISTORY OF PRESENT ILLNESS: This 64-year-old woman with a past medical history of COPD, GERD, DJD, hypothyroidism, being followed by Dr. Galloway in the outpatient setting is admitted for chemotherapy. The patient had B-cell lymphoma. The patient is on chemotherapy with 2nd cycle of R- CHOP. There is no history of fever, rigors or chills. This patient had significant ulceration on the right jaw, which is improving significantly with chemotherapy at this time. PAST MEDICAL HISTORY: Asthma, non-Hodgkin's lymphoma, COPD, GERD, DJD, hypothyroidism. MEDICATIONS: Home medications are levothyroxine, BuSpar, Habitrol, gabapentin, Flexeril, Proventil, Ventolin. Doses are noted. ALLERGIES: None. FAMILY HISTORY: History of brain cancer in the family. SOCIAL HISTORY: History of smoking ongoing. REVIEW OF SYSTEMS: ENT: No diminished vision. No diminished hearing. CARDIOVASCULAR: No angina or palpitations. RESPIRATORY: As mentioned earlier. GI: As mentioned earlier. : No dysuria. NERVOUS SYSTEM: No numbness or weakness. ALLERGY/IMMUNOLOGY: No asthma or hayfever. MUSCULOSKELETAL as mentioned earlier. HEMATOLOGY/ONCOLOGY: As mentioned earlier. ENDOCRINE: As mentioned earlier. CONSTITUTIONAL: As mentioned earlier. DERMATOLOGY as mentioned earlier. RHEUMATOLOGY negative. PSYCHIATRY as mentioned. PHYSICAL EXAMINATION: Alert and oriented times three. Pulse 98. Blood pressure is 118/80, respirations 16, temperature 98 degrees, pulse ox 97% on room air. HEENT: Conjunctivae normal. NECK: No JVD. CARDIOVASCULAR: S1, S2 muffled. RESPIRATORY: Breath sounds diminished in the bases. No rhonchi. No crackles. ABDOMEN: Soft. Nontender. LEGS: No edema. No swelling. NERVOUS SYSTEM: Higher functions as mentioned earlier. Moves all four limbs. No focal deficits. SKIN: No ulcer, no rash and no bleeding. JOINTS: No active deforming arthropathy. Examination of the right jaw also present. LABS: At this time, CBC within normal limits and glucose 106. ASSESSMENT: 1. Non-Hodgkin lymphoma on chemotherapy with R-CHOP. 2. Right jaw malignant ulcer. 3. History of asthma, chronic obstructive pulmonary disease. 4. Gastroesophageal reflux disease. 5. Degenerative joint disease. 6. Hypothyroidism. 7. History of hysterectomy. 8. History of degenerative joint disease. 9. History of anxiety, depression. 10.Remote history of nicotine dependence. RECOMMENDATIONS AND DISCUSSION: This 65-year-old woman who presented with multiple complex medical issues, we will continue to monitor. Hematology/Oncology planning chemotherapy at this time. I recommend continue the rest of the home medications. Ensure oxygenation. DVT prophylaxis. Incentive spirometry. Proton pump inhibitors. We will follow the patient closely. Thank you for letting us participate in the care of this patient. MMODL / IJN: [id number] /
[2020-09-15 06:01] LABS: Basophils % (A) 0 %; Eosinophils % (A) 0 %; HCT 32.9 % (34.0-46.0); HGB 10.1 gm/dL (11.4-16.0); Hypochromasia Slight; Lymphocytes # (A) 0.4 k/uL (1.0-4.8); Lymphocytes % (A) 7 %; MCH 28.6 pg (25.0-35.0); MCHC 30.7 g/dL (31.0-37.0); MCV 93.3 fL (80.0-100.0); Mean Platelet Volume 6.5; Monocytes # (A) 0.1 k/uL (0-1.0); Monocytes % (A) 2 %; Neutrophils # (A) 5.9 k/uL (1.3-7.7); Neutrophils % (A) 91 %; Platelet Count 244 k/uL (150-450); RBC 3.52 m/uL (3.80-5.40); RDW 15.9 % (11.5-15.5); WBC 6.5 k/uL (3.8-10.6)
[2020-09-15] MEDS: LEVOTHYROXINE 125 MCG TAB PO SCH (06:01)
[2020-09-15] MEDS: NICOTINE 21MG/24HR PATCH TRANSDERM SCH (08:12)
[2020-09-15] MEDS: busPIRone HCl 10 MG TAB PO SCH ×2 (08:13→19:56)
[2020-09-15] MEDS: SENNOSIDES-DOCUSATE SODIUM 1 EACH TAB PO SCH ×2 (08:13→19:56)
[2020-09-15] MEDS: predniSONE 20 MG TAB PO SCH ×2 (08:14→19:55)
[2020-09-15] MEDS: ENOXAPARIN 40 MG/0.4 ML SYRINGE SQ SCH (08:14)
[2020-09-15] MEDS: PANTOPRAZOLE 40 MG TABLET PO SCH ×2 (08:14→17:59)
[2020-09-15] MEDS: predniSONE 50 MG TAB PO SCH ×2 (08:14→19:55)
[2020-09-15] MEDS: HYDROcodone/APAP 10-325MG 1 EACH TAB PO PRN ×2 (10:16→19:53)
[2020-09-15 13:02] VITALS: BMI 24.6
[2020-09-15] MEDS: GABAPENTIN 300 MG CAP PO PRN (13:06)
--- NOTE | 2020-09-15 13:11 | P.PN ---
Subjective Progress Note Date: 09/15/20 This is a 65-year-old female who was recently admitted with a past medical history of COPD, GERD, DJD, hypothyroidism and was admitted under oncology services for chemotherapy. Patient does have B-cell lymphoma and currently receiving round to of chemotherapy. Patient continues with right jaw ulceration which has significantly improved from initiation of chemotherapy. Small bandage covering the wound currently with no surrounding redness or drainage noted. Review of systems: Constitutional: No reports of fatigue, fever, or chills Cardiovascular: No reports of chest pain or palpitations Respiratory: No reports of shortness of breath or cough GI: No reports of nausea, vomiting, or diarrhea : No reports of dysuria or retention Neurovascular: No reports of weakness or numbness All medications have been reviewed Objective - Vital Signs Vital signs: Vital Signs Temp 97.7 F 09/15/20 08:00 Pulse 78 09/15/20 08:00 Resp 16 09/15/20 08:00 BP 119/66 09/15/20 08:00 Pulse Ox 95 09/15/20 08:00 Intake & Output 09/14/20 09/15/20 09/15/20 18:59 06:59 18:59 Intake Total 319.167 900 Balance 319.167 900 Weight 55.3 kg Intake: Intake, IV Titration 319.167 900 Amount Sodium Chloride 0.9% 1, 900 000 ml @ 75 mls/hr IV . [id number] [facility] Rx#:[id number] riTUXimab PVVR 560 mg In 319.167 Sodium Chloride 0.9% 500 ml 500 ml @ Titrate IV . Q0M ONE Rx#:[id number] Other: Voiding Method Toilet # Voids 1 1 - Exam Gen: This is a 65-year-old female currently sitting up in bed awake, alert and oriented 3, well-developed, well-nourished. HEENT: Head is atraumatic, normocephalic. Pupils equal, round. Sclerae is anicteric. NECK: Supple. No JVD. No lymphadenopathy. No thyromegaly. LUNGS: Diminished breath sounds bilaterally with a few scattered rhonchi noted. No intercostal retractions. HEART: Regular rate and rhythm. No murmur. ABDOMEN: Soft. Bowel sounds are present. No masses. No tenderness. EXTREMITIES: No pedal edema. No calf tenderness. NEUROLOGICAL: Patient is awake, alert and oriented x3. Cranial nerves 2 through 12 are grossly intact. SKIN: Right side chin ulceration noted with no surrounding redness or drainage noted - Labs CBC & Chem 7: 09/15/20 05:22 09/14/20 10:38 Labs: Abnormal Lab Results - Last 24 Hours (Table) 09/14/20 09/14/20 09/15/20 Range/Units 10:38 10:38 05:22 RBC 3.52 L (3.80-5.40) m/uL Hgb 10.1 L (11.4-16.0) gm/dL Hct 32.9 L (34.0-46.0) % MCHC 30.7 L (31.0-37.0) g/dL RDW 15.9 H 15.9 H (11.5-15.5) % Lymphocytes # 0.8 L 0.4 L (1.0-4.8) k/uL Glucose 106 H (74-99) mg/dL Assessment and Plan Assessment: Non-Hodgkin's lymphoma on chemotherapy with R-CHOP Right jaw malignant ulcer History of asthma, chronic obstructive pulmonary disease, not in acute exacerbation Gastroesophageal reflux disease Hypothyroidism Continued ongoing nicotine dependence Anxiety, depression DVT prophylaxis subcutaneous Lovenox GI prophylaxis Pepcid and Protonix Plan: Patient is currently receiving chemotherapy and oncology following closely. Will continue to follow along closely during hospitalization. Patient was having some generalized pain and will resume home medication. Instructed the patient to continue using incentive spirometer at least 10 times every hour while awake and continue to increase activity as tolerated. Patient to continue with breathing treatments as needed. Thank you for this consultation
--- NOTE | 2020-09-15 13:29 | P.PN ---
Subjective Progress Note Date: 09/15/20 Principal diagnosis: Timed chemotherapy Day 3 of R-EPOCH, tolerating well. Discussed lack of blood return from picc line with midnight nurse, chest xray confirmed proper location and cathflow did result in blood return, RN monitoring continued closely during entire infusion, no swelling, erythema or pain at infusion site. Objective - Vital Signs Vital signs: Vital Signs Temp 98.1 F 09/15/20 12:14 Pulse 81 09/15/20 12:14 Resp 16 09/15/20 12:14 BP 137/88 09/15/20 12:14 Pulse Ox 92 L 09/15/20 12:14 Intake & Output 09/14/20 09/15/20 09/15/20 18:59 06:59 18:59 Intake Total 319.167 900 Balance 319.167 900 Weight 55.3 kg 55.3 kg Intake: Intake, IV Titration 319.167 900 Amount Sodium Chloride 0.9% 1, 900 000 ml @ 75 mls/hr IV . [id number] [facility] Rx#:[id number] riTUXimab PVVR 560 mg In 319.167 Sodium Chloride 0.9% 500 ml 500 ml @ Titrate IV . Q0M ONE Rx#:[id number] Other: Voiding Method Toilet Toilet # Voids 1 1 - Exam - Constitutional General appearance: Present: average body habitus, cooperative, no acute distr ess - EENT EENT Comment(s): dry mucus membranes, no thrush or ulcers Eyes: Present: abnormal pupil, edentulous ENT: Present: hearing grossly normal - Respiratory Respiratory: bilateral: CTA - Cardiovascular Rhythm: regular Heart sounds: normal: S1, S2 Abnormal Heart Sounds: Absent: systolic murmur, diastolic murmur, rub, S3 Gallop, S4 Gallop, click, other - Peripheral edema leg Peripheral Edema: bilateral: None - Gastrointestinal General gastrointestinal: Present: normal bowel sounds, soft - Integumentary Integumentary Comment(s): mandible malignant lesion looks less red and swollen today, the ulceration is drying up and scabbing over - Neurologic Neurologic: Present: CNII-XII intact - Musculoskeletal Musculoskeletal: Present: strength equal bilaterally - Psychiatric Psychiatric: Present: A&O x's 3, appropriate affect, intact judgment & insight - Labs CBC & Chem 7: 09/15/20 05:22 09/14/20 10:38 Labs: Abnormal Lab Results - Last 24 Hours (Table) 09/15/20 Range/Units 05:22 RBC 3.52 L (3.80-5.40) m/uL Hgb 10.1 L (11.4-16.0) gm/dL Hct 32.9 L (34.0-46.0) % MCHC 30.7 L (31.0-37.0) g/dL RDW 15.9 H (11.5-15.5) % Lymphocytes # 0.4 L (1.0-4.8) k/uL Assessment and Plan (1) Facial mass Current Visit: No Status: Acute Priority: High Code(s): R22.0 - LOCALIZED SWELLING, MASS AND LUMP, HEAD SNOMED Code(s): 046992730 (2) Non-Hodgkin lymphoma Current Visit: No Status: Acute Priority: High Code(s): C85.90 - NON- HODGKIN LYMPHOMA, UNSPECIFIED, UNSPECIFIED SITE SNOMED Code(s): 968679821 Plan: PPI Home meds ordered Daily Labs VTE prophylaxis Neulasta planned after completion of chemo in office Additional Bowel support and antiemetic COntinue on day 3 R-EPOCH Awaiting CMP and other labs ordered for this am? Re-ordered as stat.
[2020-09-15 13:58] LABS: African American GFR (CKD) 112.4 (60.0-200.0); Albumin 3.8 g/dL (3.80-4.90); BUN/Creat Ratio 18.33 Ratio (12.00-20.00); Calcium 8.6 mg/dL (8.7-10.3); Globulin 1.9 g/dL (1.6-3.3); Magnesium 1.7 mg/dL (1.5-2.4); Phosphorus 3.3 mg/dL (2.4-5.1); Potassium 4.3 mmol/L (3.5-5.5); Total Bilirubin 0.3 mg/dL (0.2-1.2); Total Protein 5.7 g/dL (6.2-8.2); Uric Acid 3.7 mg/dL (2.9-7.7)
[2020-09-15 15:02] LABS: ALT 11 U/L (4-34); AST 19 U/L (14-36); African American GFR (CKD) >90 (>60 ml/min/1.73 sqM); Albumin 3.9 g/dL (3.5-5.0); Albumin/Globulin Ratio 1.6; Alkaline Phosphatase 67 U/L (38-126); Anion Gap 7 mmol/L; Blood Urea Nitrogen 11 mg/dL (7-17); Calcium 9.4 mg/dL (8.4-10.2); Carbon Dioxide 24 mmol/L (22-30); Chloride 109 mmol/L (98-107); Globulin 2.5 g/dL; Glucose 180 mg/dL (74-99); Magnesium 1.7 mg/dL (1.6-2.3); Non-African American GFR(CKD) >90 (>60 ml/min/1.73 sqM); Potassium 4.4 mmol/L (3.5-5.1); Sodium 140 mmol/L (137-145); Total Bilirubin 0.2 mg/dL (0.2-1.3); Total Protein 6.4 g/dL (6.3-8.2); Uric Acid 3.7 mg/dL (3.7-7.4)
[2020-09-15] MEDS: OLANZapine 2.5 MG TAB PO SCH (19:55)
[2020-09-15] MEDS: ONDANSETRON 16 MG in SODIUM CHLORIDE 0.9% 50 ML IVPB SCH ×2 (20:30→20:31)
[2020-09-15] MEDS: FAMOTIDINE 20 MG/2 ML VIAL IV SCH (20:30)
[2020-09-15] MEDS: ETOPOSIDE IV SCH (21:10)
[2020-09-15] MEDS: [UNRECOGNIZED DRUG - OTHER] IV SCH (21:10)
[2020-09-15] MEDS: VINCRISTINE SULFATE IV SCH (21:10)
[2020-09-15] MEDS: DOXORUBICIN HCL IV SCH (21:10)
[2020-09-16] MEDS: SODIUM CHLORIDE 0.9% 1,000 ML IV SCH ×2 (04:19→15:54)
[2020-09-16] MEDS: HYDROcodone/APAP 10-325MG 1 EACH TAB PO PRN ×3 (05:56→20:35)
[2020-09-16 06:10] LABS: Basophils % (A) 0 %; Eosinophils % (A) 0 %; HCT 29.8 % (34.0-46.0); HGB 9.7 gm/dL (11.4-16.0); Hypochromasia Slight; Lymphocytes # (A) 0.3 k/uL (1.0-4.8); Lymphocytes % (A) 3 %; MCH 30.2 pg (25.0-35.0); MCHC 32.6 g/dL (31.0-37.0); MCV 92.8 fL (80.0-100.0); Mean Platelet Volume 6.6; Monocytes # (A) 0.2 k/uL (0-1.0); Monocytes % (A) 2 %; Neutrophils # (A) 10.4 k/uL (1.3-7.7); Neutrophils % (A) 94 %; Platelet Count 238 k/uL (150-450); RBC 3.21 m/uL (3.80-5.40); RDW 15.7 % (11.5-15.5)
[2020-09-16] MEDS: LEVOTHYROXINE 125 MCG TAB PO SCH (06:26)
[2020-09-16 06:40] LABS: ALT 8 U/L (4-34); AST 15 U/L (14-36); African American GFR (CKD) >90 (>60 ml/min/1.73 sqM); Albumin 3.2 g/dL (3.5-5.0); Albumin/Globulin Ratio 1.3; Alkaline Phosphatase 56 U/L (38-126); Anion Gap 4 mmol/L; Blood Urea Nitrogen 12 mg/dL (7-17); Calcium 8.9 mg/dL (8.4-10.2); Carbon Dioxide 25 mmol/L (22-30); Chloride 111 mmol/L (98-107); Globulin 2.4 g/dL; Glucose 129 mg/dL (74-99); LDH 316 U/L (313-618); Magnesium 1.9 mg/dL (1.6-2.3); Non-African American GFR(CKD) >90 (>60 ml/min/1.73 sqM); Phosphorus 3.2 mg/dL (2.5-4.5); Potassium 3.9 mmol/L (3.5-5.1); Sodium 140 mmol/L (137-145); Total Bilirubin <0.1 mg/dL (0.2-1.3); Total Protein 5.6 g/dL (6.3-8.2); Uric Acid 3.6 mg/dL (3.7-7.4)
[2020-09-16] MEDS: NICOTINE 21MG/24HR PATCH TRANSDERM SCH (07:53)
[2020-09-16] MEDS: predniSONE 20 MG TAB PO SCH ×2 (07:53→20:36)
[2020-09-16] MEDS: ENOXAPARIN 40 MG/0.4 ML SYRINGE SQ SCH (07:53)
[2020-09-16] MEDS: busPIRone HCl 10 MG TAB PO SCH ×2 (07:54→20:36)
[2020-09-16] MEDS: SENNOSIDES-DOCUSATE SODIUM 1 EACH TAB PO SCH ×2 (07:54→20:36)
[2020-09-16] MEDS: PANTOPRAZOLE 40 MG TABLET PO SCH ×2 (07:54→17:07)
[2020-09-16] MEDS: predniSONE 50 MG TAB PO SCH ×2 (07:54→20:36)
--- NOTE | 2020-09-16 15:04 | P.PN ---
Subjective Progress Note Date: 09/16/20 This is a 65-year-old female who was recently admitted with a past medical history of COPD, GERD, DJD, hypothyroidism and was admitted under oncology services for chemotherapy. Patient does have B-cell lymphoma and currently receiving round to of chemotherapy. Patient continues with right jaw ulceration which has significantly improved from initiation of chemotherapy. Small bandage covering the wound currently with no surrounding redness or drainage noted. 09/16/2020 Patient is seen and evaluated follow-up continues to receive chemotherapy and being closely monitored. States she is having some lower extremity swelling and will order compression stockings and instructed the patient to elevate lower extremities while at rest. Patient continues on high-dose steroids along with continuous nausea medication and appropriate home medications for pain have been resumed. Patient also continues on subcutaneous Lovenox for DVT prophylaxis. Patient is afebrile and vital signs have been stable. White blood count trending up at 11.0 and hemoglobin is 9.7, sodium is 140 with a potassium of 3.9 and current creatinine is 0.51. Magnesium is 1.9. Patient states she is tolerating diet although continues to eat very little with no nausea or vomiting reported. She reports urinating and having bowel movements with no difficulty. Review of systems: Constitutional: No reports of fatigue, fever, or chills Cardiovascular: No reports of chest pain or palpitations Respiratory: No reports of shortness of breath or cough GI: No reports of nausea, vomiting, or diarrhea : No reports of dysuria or retention Neurovascular: No reports of weakness or numbness All medications have been reviewed Objective - Vital Signs Vital signs: Vital Signs Temp 97.6 F 09/16/20 08:00 Pulse 80 09/16/20 08:00 Resp 17 09/16/20 08:00 BP 123/80 09/16/20 08:00 Pulse Ox 96 09/16/20 08:00 Intake & Output 09/15/20 09/16/20 09/16/20 18:59 06:59 18:59 Intake Total 1164 1107 Balance 1164 1107 Weight 55.3 kg Intake: Intake, IV Titration 1164 1107 Amount Etoposide 74 mg 264 207 DOXOrubicin HCL 15 mg vinCRIStine SULFATE 0.6 mg In Sodium Chloride 0.9 % 500 ml 500 ml @ 21.325 mls/hr IV Q24H [facility] Rx#: [id number] Sodium Chloride 0.9% 1, 900 900 000 ml @ 75 mls/hr IV . [id number] [facility] Rx#:[id number] Other: Voiding Method Toilet - Exam Gen: This is a 65-year-old female currently sitting up in the chair awake, alert and oriented 3, well-developed, well-nourished. HEENT: Head is atraumatic, normocephalic. Pupils equal, round. Sclerae is anicteric. NECK: Supple. No JVD. No lymphadenopathy. No thyromegaly. LUNGS: Diminished breath sounds bilaterally with a few scattered rhonchi noted. No intercostal retractions. HEART: Regular rate and rhythm. No murmur. ABDOMEN: Soft. Bowel sounds are present. No masses. No tenderness. EXTREMITIES: No pedal edema. No calf tenderness. No edema or swelling noted to bilateral lower extremities NEUROLOGICAL: Patient is awake, alert and oriented x3. Cranial nerves 2 through 12 are grossly intact. SKIN: Right side chin ulceration noted with no surrounding redness or drainage noted - Labs CBC & Chem 7: 09/16/20 05:47 09/16/20 05:47 Labs: Abnormal Lab Results - Last 24 Hours (Table) 09/15/20 09/15/20 09/16/20 Range/Units 05:22 13:48 05:47 WBC 11.0 H (3.8-10.6) k/uL RBC 3.21 L (3.80-5.40) m/uL Hgb 9.7 L (11.4-16.0) gm/dL Hct 29.8 L (34.0-46.0) % RDW 15.7 H (11.5-15.5) % Neutrophils # 10.4 H (1.3-7.7) k/uL Lymphocytes # 0.3 L (1.0-4.8) k/uL Chloride 111 H 109 H (96-109) mmol/L Creatinine (0.52-1.04) mg/dL Glucose 159 H 180 H (70-110) mg/dL Uric Acid (3.7-7.4) mg/dL Calcium 8.6 L (8.7-10.3) mg/dL Total Bilirubin (0.2-1.3) mg/dL AST 12 L (13-35) U/L Total Protein 5.7 L (6.2-8.2) g/dL Albumin (3.5-5.0) g/dL 09/16/20 Range/Units 05:47 WBC (3.8-10.6) k/uL RBC (3.80-5.40) m/uL Hgb (11.4-16.0) gm/dL Hct (34.0-46.0) % RDW (11.5-15.5) % Neutrophils # (1.3-7.7) k/uL Lymphocytes # (1.0-4.8) k/uL Chloride 111 H (96-109) mmol/L Creatinine 0.51 L (0.52-1.04) mg/dL Glucose 129 H (70-110) mg/dL Uric Acid 3.6 L (3.7-7.4) mg/dL Calcium (8.7-10.3) mg/dL Total Bilirubin <0.1 L (0.2-1.3) mg/dL AST (13-35) U/L Total Protein 5.6 L (6.2-8.2) g/dL Albumin 3.2 L (3.5-5.0) g/dL Assessment and Plan Assessment: Non-Hodgkin's lymphoma on chemotherapy with R-CHOP Right jaw malignant ulcer Mild leukocytosis History of asthma, chronic obstructive pulmonary disease, not in acute exacerbation Gastroesophageal reflux disease Hypothyroidism Continued ongoing nicotine dependence Anxiety, depression DVT prophylaxis subcutaneous Lovenox GI prophylaxis Pepcid and Protonix Plan: Patient is currently receiving chemotherapy and oncology following closely. Will continue to follow along closely during hospitalization. Patient was having some generalized pain and will resume home medication. Instructed the patient to continue using incentive spirometer at least 10 times every hour while awake and continue to increase activity as tolerated. Patient states she was having some lower extremity swelling and will order compression stockings and instructed patient to elevate lower extremities while at rest. Patient to continue with breathing treatments as needed. Thank you for this consultation.
--- NOTE | 2020-09-16 20:25 | P.PN ---
Subjective Progress Note Date: 09/16/20 Principal diagnosis: Timed chemotherapy Tolerating chemo well, no complaints. Objective - Vital Signs Vital signs: Vital Signs Temp 98.2 F 09/16/20 19:29 Pulse 64 09/16/20 19:29 Resp 16 09/16/20 19:29 BP 136/89 09/16/20 19:29 Pulse Ox 97 09/16/20 19:29 Intake & Output 09/16/20 09/16/20 09/17/20 06:59 18:59 06:59 Intake Total 1107 1435.6 Balance 1107 1435.6 Intake: Intake, IV Titration 1107 1155.6 Amount Etoposide 74 mg 207 DOXOrubicin HCL 15 mg vinCRIStine SULFATE 0.6 mg In Sodium Chloride 0.9 % 500 ml 500 ml @ 21.325 mls/hr IV Q24H [facility] Rx#: [id number] Etoposide 74 mg 255.6 DOXOrubicin HCL 15 mg vinCRIStine SULFATE 0.6 mg In Sodium Chloride 0.9 % 500 ml 500 ml @ 21.325 mls/hr IV Q24H [facility] Rx#: [id number] Sodium Chloride 0.9% 1, 900 900 000 ml @ 75 mls/hr IV . [id number] [facility] Rx#:[id number] Oral 280 Other: # Voids 1 - Exam - Constitutional General appearance: Present: average body habitus, cooperative, no acute distress - EENT EENT Comment(s): dry mucus membranes, no thrush or ulcers Eyes: Present: abnormal pupil, edentulous ENT: Present: hearing grossly normal - Respiratory Respiratory: bilateral: CTA - Cardiovascular Rhythm: regular Heart sounds: normal: S1, S2 Abnormal Heart Sounds: Absent: systolic murmur, diastolic murmur, rub, S3 Gallop, S4 Gallop, click, other - Peripheral edema leg Peripheral Edema: bilateral: None - Gastrointestinal General gastrointestinal: Present: normal bowel sounds, soft - Integumentary Integumentary Comment(s): mandible malignant lesion looks less red and swollen today, the ulceration is drying up and scabbing over - Neurologic Neurologic: Present: CNII-XII intact - Musculoskeletal Musculoskeletal: Present: strength equal bilaterally - Psychiatric Psychiatric: Present: A&O x's 3, appropriate affect, intact judgment & insight - Labs CBC & Chem 7: 09/16/20 05:47 09/16/20 05:47 Labs: Abnormal Lab Results - Last 24 Hours (Table) 09/16/20 09/16/20 Range/Units 05:47 05:47 WBC 11.0 H (3.8-10.6) k/uL RBC 3.21 L (3.80-5.40) m/uL Hgb 9.7 L (11.4-16.0) gm/dL Hct 29.8 L (34.0-46.0) % RDW 15.7 H (11.5-15.5) % Neutrophils # 10.4 H (1.3-7.7) k/uL Lymphocytes # 0.3 L (1.0-4.8) k/uL Chloride 111 H (98-107) mmol/L Creatinine 0.51 L (0.52-1.04) mg/dL Glucose 129 H (74-99) mg/dL Uric Acid 3.6 L (3.7-7.4) mg/dL Total Bilirubin <0.1 L (0.2-1.3) mg/dL Total Protein 5.6 L (6.3-8.2) g/dL Albumin 3.2 L (3.5-5.0) g/dL Assessment and Plan (1) Facial mass Current Visit: No Status: Acute Priority: High Code(s): R22.0 - LOCALIZED SWELLING, MASS AND LUMP, HEAD SNOMED Code(s): 630254440 (2) Non-Hodgkin lymphoma Current Visit: No Status: Acute Priority: High Code(s): C85.90 - NON- HODGKIN LYMPHOMA, UNSPECIFIED, UNSPECIFIED SITE SNOMED Code(s): 536707844 Plan: PPI Home meds ordered Daily Labs VTE prophylaxis Neulasta planned after completion of chemo in office Additional Bowel support and antiemetic COntinue on day 4 R-EPOCH Stable labs, no new orders
[2020-09-16] MEDS: OLANZapine 2.5 MG TAB PO SCH (20:36)
[2020-09-16] MEDS: GABAPENTIN 300 MG CAP PO PRN (20:38)
[2020-09-16] MEDS: CYCLOBENZAPRINE 10 MG TAB PO PRN (21:55)
[2020-09-16] MEDS: ONDANSETRON 16 MG in SODIUM CHLORIDE 0.9% 50 ML IVPB SCH (21:55)
[2020-09-16] MEDS: FAMOTIDINE 20 MG/2 ML VIAL IV SCH (21:56)
[2020-09-16] MEDS: ETOPOSIDE IV SCH (23:18)
[2020-09-16] MEDS: DOXORUBICIN HCL IV SCH (23:18)
[2020-09-16] MEDS: VINCRISTINE SULFATE IV SCH (23:18)
[2020-09-16] MEDS: [UNRECOGNIZED DRUG - OTHER] IV SCH (23:18)
[2020-09-17] MEDS: SODIUM CHLORIDE 0.9% 1,000 ML IV SCH ×2 (04:32→15:49)
[2020-09-17] MEDS: LEVOTHYROXINE 125 MCG TAB PO SCH (06:24)
[2020-09-17] MEDS: NICOTINE 21MG/24HR PATCH TRANSDERM SCH (08:09)
[2020-09-17] MEDS: SENNOSIDES-DOCUSATE SODIUM 1 EACH TAB PO SCH ×2 (08:09→20:16)
[2020-09-17] MEDS: PANTOPRAZOLE 40 MG TABLET PO SCH ×2 (08:09→17:07)
[2020-09-17] MEDS: predniSONE 20 MG TAB PO SCH ×2 (08:09→20:16)
[2020-09-17] MEDS: busPIRone HCl 10 MG TAB PO SCH ×2 (08:09→20:16)
[2020-09-17] MEDS: ENOXAPARIN 40 MG/0.4 ML SYRINGE SQ SCH (08:10)
[2020-09-17] MEDS: predniSONE 50 MG TAB PO SCH ×2 (08:10→20:16)
[2020-09-17] MEDS: HYDROcodone/APAP 10-325MG 1 EACH TAB PO PRN ×3 (08:53→23:13)
[2020-09-17 10:27] LABS: Basophils % (A) 0 %; Eosinophils % (A) 1 %; HCT 31.2 % (34.0-46.0); HGB 10.1 gm/dL (11.4-16.0); Hypochromasia Slight; Lymphocytes # (A) 0.3 k/uL (1.0-4.8); Lymphocytes % (A) 4 %; MCH 29.7 pg (25.0-35.0); MCHC 32.4 g/dL (31.0-37.0); MCV 91.9 fL (80.0-100.0); Mean Platelet Volume 6.9; Monocytes # (A) 0.2 k/uL (0-1.0); Monocytes % (A) 2 %; Neutrophils # (A) 7.5 k/uL (1.3-7.7); Neutrophils % (A) 94 %; Platelet Count 221 k/uL (150-450); RDW 15.4 % (11.5-15.5)
[2020-09-17 10:40] LABS: ALT 17 U/L (4-34); AST 30 U/L (14-36); African American GFR (CKD) >90 (>60 ml/min/1.73 sqM); Albumin 3.6 g/dL (3.5-5.0); Albumin/Globulin Ratio 1.5; Alkaline Phosphatase 56 U/L (38-126); Anion Gap 4 mmol/L; Blood Urea Nitrogen 12 mg/dL (7-17); Calcium 9.2 mg/dL (8.4-10.2); Carbon Dioxide 30 mmol/L (22-30); Chloride 106 mmol/L (98-107); Globulin 2.4 g/dL; Glucose 162 mg/dL (74-99); Non-African American GFR(CKD) >90 (>60 ml/min/1.73 sqM); Potassium 3.8 mmol/L (3.5-5.1); Sodium 140 mmol/L (137-145); Total Bilirubin 0.2 mg/dL (0.2-1.3)
--- NOTE | 2020-09-17 14:44 | P.PN ---
Subjective Progress Note Date: 09/17/20 This is a 65-year-old female who was recently admitted with a past medical history of COPD, GERD, DJD, hypothyroidism and was admitted under oncology services for chemotherapy. Patient does have B-cell lymphoma and currently receiving round to of chemotherapy. Patient continues with right jaw ulceration which has significantly improved from initiation of chemotherapy. Small bandage covering the wound currently with no surrounding redness or drainage noted. 09/16/2020 Patient is seen and evaluated follow-up continues to receive chemotherapy and being closely monitored. States she is having some lower extremity swelling and will order compression stockings and instructed the patient to elevate lower extremities while at rest. Patient continues on high-dose steroids along with continuous nausea medication and appropriate home medications for pain have been resumed. Patient also continues on subcutaneous Lovenox for DVT prophylaxis. Patient is afebrile and vital signs have been stable. White blood count trending up at 11.0 and hemoglobin is 9.7, sodium is 140 with a potassium of 3.9 and current creatinine is 0.51. Magnesium is 1.9. Patient states she is tolerating diet although continues to eat very little with no nausea or vomiting reported. She reports urinating and having bowel movements with no difficulty. 09/17/2020 Patient is seen and evaluated this morning currently sitting up in the chair with no acute overnight issues. Patient's white count today improved at 8.0 and hemoglobin is 10.1. Sodium is 140 with a potassium of 3.8 and current creatinine is 0.55. Patient's blood pressures are slightly elevated and will add low-dose of Norvasc 2.5 mg and monitor closely. Patient continues on chemotherapy treatment and continues to be closely monitored. No reports of chest pain, shortness of breath, or palpitations noted. Patient is quite pleasant and positive spirits today. She reports tolerating diet with no reports of nausea or vomiting noted. Patient is on high-dose steroids. Review of systems: Constitutional: No reports of fatigue, fever, or chills Cardiovascular: No reports of chest pain or palpitations Respiratory: No reports of shortness of breath or cough GI: No reports of nausea, vomiting, or diarrhea : No reports of dysuria or retention Neurovascular: No reports of weakness or numbness All medications have been reviewed Objective - Vital Signs Vital signs: Vital Signs Temp 96.7 F L 09/17/20 08:00 Pulse 70 09/17/20 08:00 Resp 16 09/17/20 08:00 BP 179/95 09/17/20 08:00 Pulse Ox 97 09/17/20 08:00 Intake & Output 09/16/20 09/17/20 09/17/20 18:59 06:59 18:59 Intake Total 1435.6 1805.6 Balance 1435.6 1805.6 Intake: Intake, IV Titration 1155.6 1205.6 Amount Etoposide 74 mg 255.6 255.6 DOXOrubicin HCL 15 mg vinCRIStine SULFATE 0.6 mg In Sodium Chloride 0.9 % 500 ml 500 ml @ 21.325 mls/hr IV Q24H [facility] Rx#: [id number] Ondansetron 16 mg In 50 Sodium Chloride 0.9% 50 ml @ 232 mls/hr IVPB Q24H [facility] Rx#:[id number] Sodium Chloride 0.9% 1, 900 900 000 ml @ 75 mls/hr IV . [id number] [facility] Rx#:[id number] Oral 280 600 Other: # Voids 1 3 - Exam Gen: This is a 65-year-old female currently sitting up in the chair awake, alert and oriented 3, well-developed, well-nourished. HEENT: Head is atraumatic, normocephalic. Pupils equal, round. Sclerae is anicteric. NECK: Supple. No JVD. No lymphadenopathy. No thyromegaly. LUNGS: Diminished breath sounds bilaterally with a few scattered rhonchi noted. No intercostal retractions. HEART: Regular rate and rhythm. No murmur. ABDOMEN: Soft. Bowel sounds are present. No masses. No tenderness. EXTREMITIES: No pedal edema. No calf tenderness. No edema or swelling noted to bilateral lower extremities NEUROLOGICAL: Patient is awake, alert and oriented x3. Cranial nerves 2 through 12 are grossly intact. SKIN: Right side chin ulceration noted with no surrounding redness or drainage noted - Labs CBC & Chem 7: 09/17/20 09:26 09/17/20 09:26 Assessment and Plan Assessment: Non-Hodgkin's lymphoma on chemotherapy with R-CHOP Right jaw malignant ulcer Mild leukocytosis, improved History of asthma, chronic obstructive pulmonary disease, not in acute exacerbation Gastroesophageal reflux disease Hypothyroidism Continued ongoing nicotine dependence Anxiety, depression DVT prophylaxis subcutaneous Lovenox GI prophylaxis Pepcid and Protonix Plan: Patient is currently receiving chemotherapy and oncology following closely. [place] continue to follow along closely during hospitalization. resumed appropriate home medication. Instructed the patient to continue using incentive spirometer at least 10 times every hour while awake and continue to increase activity as tolerated. To continue with compression stockings and instructed patient to elevate lower extremities while at rest. Patient to continue with breathing treatments as needed. Patient continues to have some elevated readings of hypertension and will add low-dose amlodipine and monitor closely. Thank you for this consultation.
[2020-09-17] MEDS: amLODIPine 2.5 MG TAB PO SCH (15:48)
[2020-09-17] MEDS: CYCLOBENZAPRINE 10 MG TAB PO PRN (19:00)
[2020-09-17] MEDS: OLANZapine 2.5 MG TAB PO SCH (20:16)
[2020-09-18] MEDS: FAMOTIDINE 20 MG/2 ML VIAL IV SCH (00:11)
[2020-09-18] MEDS: ONDANSETRON 16 MG in SODIUM CHLORIDE 0.9% 50 ML IVPB SCH (00:11)
[2020-09-18] MEDS: GABAPENTIN 300 MG CAP PO PRN ×2 (00:27→19:35)
[2020-09-18] MEDS: DOXORUBICIN HCL IV SCH (00:39)
[2020-09-18] MEDS: ETOPOSIDE IV SCH (00:39)
[2020-09-18] MEDS: VINCRISTINE SULFATE IV SCH (00:39)
[2020-09-18] MEDS: [UNRECOGNIZED DRUG - OTHER] IV SCH (00:39)
[2020-09-18] MEDS: SODIUM CHLORIDE 0.9% 1,000 ML IV SCH ×2 (04:00→19:26)
[2020-09-18] MEDS: LEVOTHYROXINE 125 MCG TAB PO SCH (05:41)
[2020-09-18] MEDS: PANTOPRAZOLE 40 MG TABLET PO SCH ×2 (07:31→17:14)
[2020-09-18] MEDS: NICOTINE 21MG/24HR PATCH TRANSDERM SCH (07:31)
[2020-09-18] MEDS: busPIRone HCl 10 MG TAB PO SCH ×2 (07:32→20:40)
[2020-09-18] MEDS: predniSONE 50 MG TAB PO SCH ×2 (07:32→20:40)
[2020-09-18] MEDS: predniSONE 20 MG TAB PO SCH ×2 (07:32→20:40)
[2020-09-18] MEDS: ENOXAPARIN 40 MG/0.4 ML SYRINGE SQ SCH (07:32)
[2020-09-18] MEDS: amLODIPine 2.5 MG TAB PO SCH (07:32)
[2020-09-18] MEDS: HYDROcodone/APAP 10-325MG 1 EACH TAB PO PRN ×2 (08:45→15:23)
[2020-09-18] MEDS: SENNOSIDES-DOCUSATE SODIUM 1 EACH TAB PO SCH ×2 (10:40→20:40)
[2020-09-18] MEDS: SALT AND SODA MOUTHWASH 1,000 ML PO SCH ×3 (12:48→19:26)
--- NOTE | 2020-09-18 14:16 | P.PN ---
Subjective Progress Note Date: 09/18/20 Principal diagnosis: 1. DLBCL Tolerating chemotherapy well. She is having difficulty with her car that's in the shop and will not be able to go home tomorrow and come back for Neulasta on Sunday. Objective - Vital Signs Vital signs: Vital Signs Temp 97.5 F L 09/18/20 12:00 Pulse 98 09/18/20 12:00 Resp 18 09/18/20 12:00 BP 138/86 09/18/20 12:00 Pulse Ox 93 L 09/18/20 12:00 Intake & Output 09/17/20 09/18/20 09/18/20 18:59 06:59 18:59 Intake Total 240 1805.6 Balance 240 1805.6 Weight 55.3 kg Intake: Intake, IV Titration 1205.6 Amount Etoposide 74 mg 255.6 DOXOrubicin HCL 15 mg vinCRIStine SULFATE 0.6 mg In Sodium Chloride 0.9 % 500 ml 500 ml @ 21.325 mls/hr IV Q24H [facility] Rx#: [id number] Ondansetron 16 mg In 50 Sodium Chloride 0.9% 50 ml @ 232 mls/hr IVPB Q24H [facility] Rx#:[id number] Sodium Chloride 0.9% 1, 900 000 ml @ 75 mls/hr IV . [id number] [facility] Rx#:[id number] Oral 240 600 Other: Voiding Method Toilet Toilet Toilet # Voids 4 # Bowel Movements 2 - Exam Gen.: No acute distress HEENT: Mucosa moist Neck: Supple Lungs: No respiratory distress Heart: Regular rate Abdomen: Soft MSK: Appropriate strength in all 4 extremities Neuro: Alert and oriented 3 Skin: No jaundice Psych: Appropriate affect - Labs CBC & Chem 7: 09/17/20 09:26 09/17/20 09:26 Assessment and Plan Assessment: 1. DLBCL Plan: Ms. Nicole is a very pleasant 65-year-old female with recently diagnosed DL BCL who is here for cycle 2 of RE [place]. She has been tolerating chemotherapy very well so far. Her chemo and very late tonight/early tomorrow morning. She also has mild chronic anemia that is stable. Continue chemotherapy as planned. She does have concerns of going home tomorrow, Sunday and coming back Sunday for an outpatient Neulasta as her cars in the shot. We'll plan on keeping her here and discharged from 1 day so she could get Neulasta on her way out in the office and does not have to worry about transportation. Otherwise continue to monitor her labs and supportive transfusion and medications as needed. Discussed with patient she is agreeable to the plan. All of her questions were answered.
[2020-09-18] MEDS: lisinopriL 10 MG TAB PO SCH (17:39)
[2020-09-18] MEDS: OLANZapine 2.5 MG TAB PO SCH (20:40)
[2020-09-18] MEDS ORDERED: CYCLOPHOSPHAMIDE IV ONE (21:00)
[2020-09-18] MEDS ORDERED: SODIUM CHLORIDE 0.9% IV ONE (21:00)
[2020-09-19] MEDS: SALT AND SODA MOUTHWASH 1,000 ML PO SCH ×3 (01:11→11:08)
[2020-09-19] MEDS: FAMOTIDINE 20 MG/2 ML VIAL IV SCH (02:11)
[2020-09-19] MEDS: ONDANSETRON 16 MG in SODIUM CHLORIDE 0.9% 50 ML IVPB SCH (02:11)
[2020-09-19] MEDS: SODIUM CHLORIDE 0.9% 1,000 ML IV SCH (02:42)
[2020-09-19] MEDS: HYDROcodone/APAP 10-325MG 1 EACH TAB PO PRN ×2 (03:11→11:08)
[2020-09-19] MEDS: LEVOTHYROXINE 125 MCG TAB PO SCH (06:00)
[2020-09-19 06:23] LABS: Basophils % (A) 0 %; Eosinophils % (A) 1 %; HGB 10.1 gm/dL (11.4-16.0); Lymphocytes # (A) 0.3 k/uL (1.0-4.8); Lymphocytes % (A) 7 %; MCH 30.1 pg (25.0-35.0); MCHC 33.5 g/dL (31.0-37.0); MCV 89.9 fL (80.0-100.0); Mean Platelet Volume 7.2; Monocytes # (A) 0.1 k/uL (0-1.0); Monocytes % (A) 1 %; Neutrophils # (A) 4.4 k/uL (1.3-7.7); Neutrophils % (A) 91 %; Platelet Count 193 k/uL (150-450); RBC 3.34 m/uL (3.80-5.40); RDW 15.2 % (11.5-15.5); WBC 4.8 k/uL (3.8-10.6)
[2020-09-19 06:31] LABS: ALT 43 U/L (4-34); AST 27 U/L (14-36); African American GFR (CKD) >90 (>60 ml/min/1.73 sqM); Albumin 3.7 g/dL (3.5-5.0); Albumin/Globulin Ratio 1.8; Alkaline Phosphatase 51 U/L (38-126); Anion Gap 4 mmol/L; Blood Urea Nitrogen 16 mg/dL (7-17); Calcium 9.2 mg/dL (8.4-10.2); Carbon Dioxide 35 mmol/L (22-30); Chloride 98 mmol/L (98-107); Globulin 2.1 g/dL; Glucose 106 mg/dL (74-99); Non-African American GFR(CKD) >90 (>60 ml/min/1.73 sqM); Potassium 3.2 mmol/L (3.5-5.1); Sodium 137 mmol/L (137-145); Total Bilirubin 0.2 mg/dL (0.2-1.3); Total Protein 5.8 g/dL (6.3-8.2)
[2020-09-19] MEDS: NICOTINE 21MG/24HR PATCH TRANSDERM SCH (07:17)
[2020-09-19] MEDS: PANTOPRAZOLE 40 MG TABLET PO SCH (07:17)
[2020-09-19] MEDS: ENOXAPARIN 40 MG/0.4 ML SYRINGE SQ SCH (07:19)
[2020-09-19] MEDS: busPIRone HCl 10 MG TAB PO SCH (07:19)
[2020-09-19] MEDS: SENNOSIDES-DOCUSATE SODIUM 1 EACH TAB PO SCH (07:20)
[2020-09-19] MEDS: lisinopriL 10 MG TAB PO SCH (08:55)
[2020-09-19] MEDS ORDERED: amLODIPine 5 MG TAB PO SCH (09:00)
[2020-09-19] MEDS ORDERED: Potassium Replacement Protocol 1 EACH MISC MISCELLANE PRN (11:30)
[2020-09-19 12:11] VITALS: BP 167/93; PULSE 73; RESP 16; TEMP 97.6
[2020-09-19] MEDS: POTASSIUM CHLORIDE ER 20 MEQ TAB.ER PO SCH ×2 (12:30→14:05)
--- NOTE | 2020-09-19 12:54 | P.DS ---
Providers Date of admission: 09/14/20 09:20 Expected date of discharge: 09/19/20 Attending physician: Michael Shen Consults: 09/14/20 14:21 Consult Physician Routine Consulting Provider: Ainsley Abdi Consult Reason/Comments: medical manag Do you want consulting provider notified?: Yes Primary care physician: Stated None - Discharge Diagnosis(es) (1) Non-Hodgkin lymphoma Current Visit: No Status: Acute Priority: High Hospital Course: Ms. Nicole is a very pleasant 65 yo female with DLBCL, here for cycle 2 of REPOCH. She received her chemotherapy which she tolerated well. Supportive medication provided. BP was slightly high and her BP med's were adjusted. She was discharged in stable condition with instructions to follow-up in clinic the next day for Neulasta injection. She will also continue to follow up prior to her next cycle of chemotherapy. Continue supportive medications at home. Advised that if she became dizzy at home with increased antihypertensive medications that she should stop these and call us. Patient is agreeable to the plan. Patient Condition at Discharge: Stable Plan - Discharge Summary Discharge Rx Participant: Yes New Discharge Prescriptions: No Action Albuterol Sulfate [Proventil Hfa] 2 puff INHALATION RT-QID PRN PRN Reason: Shortness Of Breath Cyclobenzaprine [Flexeril] 10 mg PO HS PRN PRN Reason: Muscle Spasm Nicotine 21Mg/24Hr Patch [Habitrol] 1 patch TRANSDERM DAILY Levothyroxine Sodium 125 mcg PO DAILY busPIRone HCl [Buspar] 10 mg PO BID Gabapentin 600 mg PO TID PRN PRN Reason: Pain Albuterol Nebulized [Ventolin Nebulized] 2.5 mg INHALATION RT-QID PRN PRN Reason: Shortness Of Breath Lisinopril [Prinivil] 10 mg PO DAILY PRN PRN Reason: Blood Pressure - High Discharge Medication List Albuterol Sulfate [Proventil Hfa] 2 puff INHALATION RT-QID PRN 06/17/20 [History] busPIRone HCl [Buspar] 10 mg PO BID 06/17/20 [History] Cyclobenzaprine [Flexeril] 10 mg PO HS PRN 07/30/20 [History] Gabapentin 600 mg PO TID PRN 07/30/20 [History] Albuterol Nebulized [Ventolin Nebulized] 2.5 mg INHALATION RT-QID PRN 09/14/20 [History] Levothyroxine Sodium 125 mcg PO DAILY 09/14/20 [History] Nicotine 21Mg/24Hr Patch [Habitrol] 1 patch TRANSDERM DAILY 09/14/20 [History] Lisinopril [Prinivil] 10 mg PO DAILY PRN 09/18/20 [History] Follow up Appointment(s)/Referral(s): [facility], [NON-STAFF] - 1 Week Discharge Disposition: HOME WITH HOME HEALTH SERVICES
--- NOTE | 2020-09-19 12:58 | P.PN ---
Subjective Progress Note Date: 09/19/20 Principal diagnosis: 1. DLBCL Tolerating chemotherapy well. Despite having difficulty with her car that's in the shop she wants to go home today and not wait until tomorrow for Neulasta injection on same day. Very worried about her cat as the person that was supposed to check on her is not able to come. Says she'll find a way to come tomorrow for Neulasta. Objective - Vital Signs Vital signs: Vital Signs Temp 97.6 F 09/19/20 12:00 Pulse 73 09/19/20 12:00 Resp 16 09/19/20 12:00 BP 167/93 09/19/20 12:00 Pulse Ox 98 09/19/20 12:00 Intake & Output 09/18/20 09/19/20 09/19/20 18:59 06:59 18:59 Intake Total 900 1980 Balance 900 1980 Weight 55.3 kg Intake: Intake, IV Titration 900 1380 Amount Cyclophosphamide 1,000 mg 250 Cyclophosphamide 100 mg In Sodium Chloride 0.9% 250 ml @ 255.5 mls/hr IV ONCE ONE Rx#:[id number] Etoposide 74 mg 180 DOXOrubicin HCL 15 mg vinCRIStine SULFATE 0.6 mg In Sodium Chloride 0.9 % 500 ml 500 ml @ 21.325 mls/hr IV Q24H [facility] Rx#: [id number] Ondansetron 16 mg In 50 Sodium Chloride 0.9% 50 ml @ 232 mls/hr IVPB Q24H [facility] Rx#:[id number] Sodium Chloride 0.9% 1, 900 900 000 ml @ 75 mls/hr IV . [id number] [facility] Rx#:[id number] Oral 600 Other: Voiding Method Toilet Toilet Toilet # Voids 2 4 - Exam Gen.: No acute distress HEENT: Mucosa moist Neck: Supple Lungs: No respiratory distress Heart: Regular rate Abdomen: Soft MSK: Appropriate strength in all 4 extremities Neuro: Alert and oriented 3 Skin: No jaundice Psych: Appropriate affect - Labs CBC & Chem 7: 09/19/20 06:02 09/19/20 06:02 Labs: Abnormal Lab Results - Last 24 Hours (Table) 09/19/20 09/19/20 Range/Units 06:02 06:02 RBC 3.34 L (3.80-5.40) m/uL Hgb 10.1 L (11.4-16.0) gm/dL Hct 30.0 L (34.0-46.0) % Lymphocytes # 0.3 L (1.0-4.8) k/uL Potassium 3.2 L (3.5-5.1) mmol/L Carbon Dioxide 35 H (22-30) mmol/L Creatinine 0.50 L (0.52-1.04) mg/dL Glucose 106 H (74-99) mg/dL ALT 43 H (4-34) U/L Total Protein 5.8 L (6.3-8.2) g/dL Assessment and Plan Assessment: 1. DLBCL 2. HTN (1) Non-Hodgkin lymphoma Current Visit: No Status: Acute Priority: High Code(s): C85.90 - NON- HODGKIN LYMPHOMA, UNSPECIFIED, UNSPECIFIED SITE SNOMED Code(s): 062441918 Plan: Ms. Nicole is a very pleasant 65-year-old female with recently diagnosed DL BCL who is here for cycle 2 of RE [place]. She completed her chemotherapy last night and tolerated well. Slight increased blood pressure, antihypertensive medication adjusted as per internal medicine team. She also has mild chronic anemia that is stable. She was concerned about going home today and coming back tomorrow for outpatient Neulasta due to transportation and plan was to discharge her tomorrow so she could get Neulasta prior to going back home however today she is very concerned about her cat at home as the personal specific care of herself coming. She would like to discharge today and she says that she'll find a way to come back tomorrow for Neulasta injection. We'll plan on discharging her today per her request and have her come back tomorrow for outpatient Neulasta. Discussed with patient she is agreeable to the plan. All of her questions were answered. Discussed with nursing staff.
--- NOTE | 2020-09-19 13:23 | P.PN ---
Subjective Progress Note Date: 09/18/20 Principal diagnosis: Non-Hodgkin's lymphoma on chemotherapy with R-CHOP Right jaw malignant ulcer Mild leukocytosis This is a 65-year-old female who was recently admitted with a past medical history of COPD, GERD, DJD, hypothyroidism and was admitted under oncology services for chemotherapy. Patient does have B-cell lymphoma and currently receiving round to of chemotherapy. Patient continues with right jaw ulceration which has significantly improved from initiation of chemotherapy. Small bandage covering the wound currently with no surrounding redness or drainage noted. Objective - Vital Signs Vital signs: Vital Signs Temp 97.5 F L 09/18/20 12:00 Pulse 98 09/18/20 12:00 Resp 18 09/18/20 12:00 BP 138/86 09/18/20 12:00 Pulse Ox 93 L 09/18/20 12:00 Intake & Output 09/17/20 09/18/20 09/18/20 18:59 06:59 18:59 Intake Total 240 1805.6 Balance 240 1805.6 Weight 55.3 kg Intake: Intake, IV Titration 1205.6 Amount Etoposide 74 mg 255.6 DOXOrubicin HCL 15 mg vinCRIStine SULFATE 0.6 mg In Sodium Chloride 0.9 % 500 ml 500 ml @ 21.325 mls/hr IV Q24H [facility] Rx#: [id number] Ondansetron 16 mg In 50 Sodium Chloride 0.9% 50 ml @ 232 mls/hr IVPB Q24H [facility] Rx#:[id number] Sodium Chloride 0.9% 1, 900 000 ml @ 75 mls/hr IV . [id number] [facility] Rx#:[id number] Oral 240 600 Other: Voiding Method Toilet Toilet Toilet # Voids 4 # Bowel Movements 2 - Exam Gen: This is a 65-year-old female currently sitting up in the chair awake, alert and oriented 3, well-developed, well-nourished. HEENT: Head is atraumatic, normocephalic. Pupils equal, round. Sclerae is anicteric. NECK: Supple. No JVD. No lymphadenopathy. No thyromegaly. LUNGS: Diminished breath sounds bilaterally with a few scattered rhonchi noted. No intercostal retractions. HEART: Regular rate and rhythm. No murmur. ABDOMEN: Soft. Bowel sounds are present. No masses. No tenderness. EXTREMITIES: No pedal edema. No calf tenderness. No edema or swelling noted to bilateral lower extremities NEUROLOGICAL: Patient is awake, alert and oriented x3. Cranial nerves 2 through 12 are grossly intact. SKIN: Right side chin ulceration noted with no surrounding redness or drainage noted - Labs CBC & Chem 7: 09/19/20 06:02 09/19/20 06:02 Assessment and Plan Assessment: 1. Non-Hodgkin's lymphoma on chemotherapy with R-CHOP - Right jaw malignant ulcer - Mild leukocytosis, improved 2. History of asthma, chronic obstructive pulmonary disease, not in acute exacerbation; instructed to continue using incentive spirometry at least 10 times every hour while awake; continue with current breathing treatments as needed 3. Gastroesophageal reflux disease; continue PPI 4. Hypothyroidism; clinically euthyroid with current dose of levothyroxine 5. Continued ongoing nicotine dependence; counseling done for smoking cessation 6. Anxiety, depression 7. Hypertension; blood pressure improved on amlodipine DVT prophylaxis subcutaneous Lovenox GI prophylaxis Pepcid and Protonix
--- NOTE | 2020-09-19 15:15 | P.PN ---
Subjective Progress Note Date: 09/19/20 Principal diagnosis: Non-Hodgkin's lymphoma on chemotherapy with R-CHOP Right jaw malignant ulcer Mild leukocytosis This is a 65-year-old female who was recently admitted with a past medical history of COPD, GERD, DJD, hypothyroidism and was admitted under oncology services for chemotherapy. Patient does have B-cell lymphoma and currently receiving round to of chemotherapy. Patient continues with right jaw ulceration which has significantly improved from initiation of chemotherapy. Small bandage covering the wound currently with no surrounding redness or drainage noted. 09/19/2020 completed chemo and cleared by Onc for dc; Despite having difficulty with her car that's in the shop she wants to go home today and not wait until tomorrow for Neulasta injection on same day Stable for dc from medicine standpoint Objective - Vital Signs Vital signs: Vital Signs Temp 97.6 F 09/19/20 12:00 Pulse 73 09/19/20 12:00 Resp 16 09/19/20 12:00 BP 167/93 09/19/20 12:00 Pulse Ox 98 09/19/20 12:00 Intake & Output 09/18/20 09/19/20 09/19/20 18:59 06:59 18:59 Intake Total 900 1980 Balance 900 1980 Weight 55.3 kg Intake: Intake, IV Titration 900 1380 Amount Cyclophosphamide 1,000 mg 250 Cyclophosphamide 100 mg In Sodium Chloride 0.9% 250 ml @ 255.5 mls/hr IV ONCE ONE Rx#:[id number] Etoposide 74 mg 180 DOXOrubicin HCL 15 mg vinCRIStine SULFATE 0.6 mg In Sodium Chloride 0.9 % 500 ml 500 ml @ 21.325 mls/hr IV Q24H [facility] Rx#: [id number] Ondansetron 16 mg In 50 Sodium Chloride 0.9% 50 ml @ 232 mls/hr IVPB Q24H [facility] Rx#:[id number] Sodium Chloride 0.9% 1, 900 900 000 ml @ 75 mls/hr IV . [id number] [facility] Rx#:[id number] Oral 600 Other: Voiding Method Toilet Toilet Toilet # Voids 2 4 - Exam Gen: This is a 65-year-old female currently sitting up in the chair awake, alert and oriented 3, well-developed, well-nourished. HEENT: Head is atraumatic, normocephalic. Pupils equal, round. Sclerae is anicteric. NECK: Supple. No JVD. No lymphadenopathy. No thyromegaly. LUNGS: Diminished breath sounds bilaterally with a few scattered rhonchi noted. No intercostal retractions. HEART: Regular rate and rhythm. No murmur. ABDOMEN: Soft. Bowel sounds are present. No masses. No tenderness. EXTREMITIES: No pedal edema. No calf tenderness. No edema or swelling noted to bilateral lower extremities NEUROLOGICAL: Patient is awake, alert and oriented x3. Cranial nerves 2 through 12 are grossly intact. SKIN: Right side chin ulceration noted with no surrounding redness or drainage noted - Labs CBC & Chem 7: 09/19/20 06:02 09/19/20 06:02 Labs: Abnormal Lab Results - Last 24 Hours (Table) 09/19/20 09/19/20 Range/Units 06:02 06:02 RBC 3.34 L (3.80-5.40) m/uL Hgb 10.1 L (11.4-16.0) gm/dL Hct 30.0 L (34.0-46.0) % Lymphocytes # 0.3 L (1.0-4.8) k/uL Potassium 3.2 L (3.5-5.1) mmol/L Carbon Dioxide 35 H (22-30) mmol/L Creatinine 0.50 L (0.52-1.04) mg/dL Glucose 106 H (74-99) mg/dL ALT 43 H (4-34) U/L Total Protein 5.8 L (6.3-8.2) g/dL Assessment and Plan Assessment: 1. Non-Hodgkin's lymphoma on chemotherapy with R-CHOP - Right jaw malignant ulcer - Mild leukocytosis, improved 2. History of asthma, chronic obstructive pulmonary disease, not in acute exacerbation; instructed to continue using incentive spirometry at least 10 times every hour while awake; continue with current breathing treatments as needed 3. Gastroesophageal reflux disease; continue PPI 4. Hypothyroidism; clinically euthyroid with current dose of levothyroxine 5. Continued ongoing nicotine dependence; counseling done for smoking cessation 6. Anxiety, depression 7. Hypertension; blood pressure improved on amlodipine DVT prophylaxis subcutaneous Lovenox GI prophylaxis Pepcid and Protonix
== END 2020-09-19 15:35 | disposition home health service (06) | DRG 847 ==
LOC: 5NMEDONC 09:20
PROVIDERS: ADMIT Internal Medicine Hematology & Oncology; ATTEND Internal Medicine Hematology & Oncology
DX: Z51.11 Encounter for antineoplastic chemotherapy (principal); C83.31 Diffuse large B-cell lymphoma, lymph nodes of head, face, and neck; J44.9 Chronic obstructive pulmonary disease, unspecified; L98.499 Non-pressure chronic ulcer of skin of other sites with unspecified severity; E03.9 Hypothyroidism, unspecified; K21.9 Gastro-esophageal reflux disease without esophagitis; I10 Essential (primary) hypertension; F32.9 Major depressive disorder, single episode, unspecified; F41.9 Anxiety disorder, unspecified; M19.90 Unspecified osteoarthritis, unspecified site; D72.829 Elevated white blood cell count, unspecified; K59.00 Constipation, unspecified; M25.561 Pain in right knee; M25.562 Pain in left knee; F17.201 Nicotine dependence, unspecified, in remission; Z71.6 Tobacco abuse counseling; Z79.890 Hormone replacement therapy; Z79.899 Other long term (current) drug therapy; Z86.011 Personal history of benign neoplasm of the brain; Z86.018 Personal history of other benign neoplasm; Z90.710 Acquired absence of both cervix and uterus; Z87.42 Personal history of other diseases of the female genital tract; Z96.652 Presence of left artificial knee joint; Z60.2 Problems related to living alone; Z86.69 Personal history of other diseases of the nervous system and sense organs; Z98.890 Other specified postprocedural states; Z80.8 Family history of malignant neoplasm of other organs or systems
CPT/HCPCS: 71045; 80053; 83615; 83735; 84100; 84550; 85025; 94640